=== PATIENT | female | born 1970 | race Caucasian/White ===

== ENCOUNTER 2018-03-26 14:27 | Emergency (ER) | payer BC, SELFPAY ==
[2018-03-26] MEDS ORDERED: MORPHINE 4 MG/ML SYR ONE (15:17)
[2018-03-26] MEDS ORDERED: ONDANSETRON 4 MG/2 ML VIAL ONE (15:17)
--- NOTE | 2018-03-26 15:29 | RAD REPORT ---
EXAM DESCRIPTION: CT - Stone Protocol - 03/26/2018 3:19 pm CLINICAL HISTORY: Abdominal pain. Right flank pain COMPARISON: 2015 TECHNIQUE: Computed axial tomography of the abdomen pelvis was obtained without oral or IV contrast. Lack of IV and oral contrast limits evaluation of solid organs, bowel, and vessels. Coronal reformat vahid images were obtained and reviewed. All CT scans are performed using dose optimization technique as appropriate and may include automated exposure control or mA/KV adjustment according to patient size. FINDINGS: A renal calculus is not seen. An ureteral calculus is not noted. A bladder calculus is not present. The liver, spleen, pancreas and adrenals appear grossly normal There is no evidence of diverticulitis. The appendix appears normal Hysterectomy has been performed. Tiny umbilical hernia. A small hiatal hernia with thickening of the wall of distal esophagus IMPRESSION: Negative for a genitourinary calculus Thickening of the wall of the distal esophagus may indicate inflammation
[2018-03-26 15:37] LABS: Absolute Lymphocytes (CBC) 3.4 K/uL (0.7-4.9); Absolute Monocytes 0.6 K/uL (0.1-1.3); Absolute Neutrophil 7.7 K/uL (1.8-8.0); Eosinophils % 2.9 % (0-4.4); Hematocrit 41.7 % (36.0-45.0); Lymphocytes % 27.8 % (15.3-44.8); MCV 94.1 fL (80-100); MPV 8.9 fL (7.6-11.3); Monocytes % 5.1 % (3.3-12.3); RBC Red Blood Cell Count 4.43 M/uL (3.86-4.86)
[2018-03-26 15:48] LABS: Albumin 3.7 g/dL (3.4-5.0); Bilirubin Direct 0.1 mg/dL (0-0.2); Bilirubin Total 0.4 mg/dL (0.2-1.0); Protein, Total 7.3 g/dL (6.4-8.2)
[2018-03-26 16:12] LABS: Urine Blood NEGATIVE (NEG); Urine Glucose NEGATIVE (NEG); Urine Protein NEGATIVE (NEG)
[2018-03-26 16:57] LABS: Creatine Phosphokinase 64 U/L (26-192); Troponin (Emerg Dept Use Only) < 0.02 ng/mL (0.0-0.045)
[2018-03-26] MEDS ORDERED: KETOROLAC 30 MG/ML INJ ONE (17:48)
--- NOTE | 2018-03-26 18:24 | EDPHYS ---
Physician Documentation [facility] Name: Emily Amaral Age: 47 yrs Sex: Female : 1970 Arrival Date: 03/26/2018 Time: 14:34 Bed 30 Private MD: None, None ED Physician Richmond Gray HPI: 03/26 15:01 This 47 yrs old Female presents to ER via Ambulatory with complaints of jmm Possible Kidney Stone. 15:01 The patient complains of pain in the right flank. The pain radiates to the suprapubic jmm area and right lower quadrant. Onset: The symptoms/episode began/occurred gradually, this morning. Associated signs and symptoms: Pertinent negatives: fever, vomiting. The patient has not experienced similar symptoms in the past. 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 - Social history:: Smoking status: . - Ebola Screening: : Patient denies travel to an Ebola-affected area in the 21 days before illness onset. ROS: 15:01 Constitutional: Negative for fever, chills, and weight loss, Cardiovascular: Negative jmm for chest pain, palpitations, and edema, Respiratory: Negative for shortness of breath, cough, wheezing, and pleuritic chest pain. 15:01 Abdomen/GI: Positive for abdominal pain. 15:01 Back: Positive for pain at rest. 15:01 All other systems are negative. Exam: 15:01 Constitutional: This is a well developed, well nourished patient who is awake, alert, jmm and in no acute distress. Head/Face: atraumatic. Eyes: EOMI, no conjunctival erythema appreciated ENT: Moist Mucus Membranes Neck: Trachea midline, Supple Chest/axilla: Normal chest wall appearance and motion. Cardiovascular: Regular 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 No edema appreciated Respiratory: Normal respirations, no respiratory distress appreciated Abdomen/GI: Non distended, soft Back: Normal ROM Skin: General appearance color normal MS/ Extremity: Moves all extremities, no obvious deformities appreciated, no edema noted to the lower extremities Neuro: Awake and alert, normal gait Psych: Behavior is normal, Mood is normal, Patient is cooperative and pleasant Vital Signs: 14:52 BP 133 / 79; Pulse 88; Resp 17; Temp 98.3; Pulse Ox 99% on R/A; Pain 8/10; tw2 16:29 BP 111 / 63; Pulse 63; Resp 18; Pulse Ox 100% on R/A; Pain 2/10; mg2 17:38 BP 129 / 82; Pulse 54; Resp 18; Pulse Ox 100% on R/A; Pain 0/10; mg2 18:44 BP 130 / 70; Pulse 60; Resp 18; Pulse Ox 100% on R/A; Pain 0/10; mg2 MDM: 14:58 Patient medically screened. [facility] 15:01 Data reviewed: vital signs, nurses notes. [facility] 18:21 Counseling: I had a detailed discussion with the patient and/or guardian regarding: the [facility] historical points, exam findings, and any diagnostic results supporting the discharge/admit diagnosis, lab results, radiology results, the need for outpatient follow up, to return to the emergency department if symptoms worsen or persist or if there are any questions or concerns that arise at home. Response to treatment: the patient's symptoms have mildly improved after treatment, and as a result, I will discharge patient. ED course: Patient's abdomen is soft. CT negative for acute findings. I do not currently suspect an acute intraabdominal process. Patient given follow up with general surgery for reevaluation and otherwise given strict return precautions. Patient understood and agrees with the plan of care. . 03/26 15:04 Order name: Basic Metabolic Panel [facility] 03/26 15:04 Order name: CBC with Diff [facility] 03/26 15:04 Order name: Creatinine for Radiology [facility] 03/26 15:04 Order name: Hepatic Function [facility] 03/26 15:04 Order name: Lipase [facility] 03/26 15:19 Order name: Urine Dipstick--Ancillary (enter results) [facility] 03/26 15:20 Order name: Urine --Ancillary (enter results) [facility] 03/26 15:43 Order name: Creatinine (Radiology Only); Complete Time: 15:56 [facility] 03/26 15:47 Order name: CBC with Automated Diff; Complete Time: 15:56 [facility] 03/26 15:48 Order name: Basic Metabolic Panel; Complete Time: 15:56 EDMS 03/26 15:48 Order name: Liver (Hepatic) Function; Complete Time: 15:56 [facility] 03/26 15:48 Order name: Lipase; Complete Time: 15:56 [facility] 03/26 16:13 Order name: Urine Dipstick-Ancillary; Complete Time: 16:33 [facility] 03/26 16:13 Order name: Urine --Ancillary; Complete Time: 16:33 [facility] 03/26 15:04 Order name: IV Saline Lock; Complete Time: 15:07 [facility] 03/26 15:04 Order name: Labs collected and sent; Complete Time: 15:07 [facility] 03/26 15:04 Order name: CT Stone Protocol [facility] 03/26 15:30 Order name: CT; Complete Time: 15:38 [facility] 03/26 16:33 Order name: Troponin (emerg Dept Use Only) [facility] 03/26 16:33 Order name: CPK [facility] 03/26 16:34 Order name: D-Dimer [facility] 03/26 16:56 Order name: D-Dimer; Complete Time: 17:05 [facility] 03/26 16:58 Order name: Creatine Phosphokinase; Complete Time: 17:05 [facility] 03/26 16:58 Order name: Troponin (Emerg Dept Use Only); Complete Time: 17:05 EDMS Administered Medications: 15:18 Drug: Zofran 4 mg Route: IVP; Site: left antecubital; mg2 15:19 Drug: morphine 4 mg Route: IVP; Site: left antecubital; mg2 17:42 Drug: Ketorolac 30 mg Route: IVP; Site: left antecubital; mg2 Disposition: 18:57 Co-signature as Attending Physician, Richmond Gray MD. rn Disposition: 03/26/18 18:23 Discharged to Home. Impression: Unspecified abdominal pain. - Condition is Stable. - Discharge Instructions: Abdominal Pain, Adult. - Prescriptions for Zofran ODT 4 mg Oral tablet,disintegrating - place 1 tablet by TRANSLINGUAL route every 4-6 hours; 20 tablet. Bentyl 20 mg Oral Tablet - take 1 tablet by ORAL route every 6 hours As needed; 20 tablet. - Medication Reconciliation Form, Thank You Letter, Antibiotic Education, Prescription Opioid Use, Work release form form. - Follow up: Rory, Phong, MD; When: 2 - 3 days; Reason: Recheck today's complaints, Continuance of care, Re-evaluation by your physician. Signatures: Dispatcher [employer] EDMS Polo Samuels PA PA jmm Nieto, Roman, MD MD rn Wise, Tara, RN RN tw2 Marco A Garrett RN RN mg2 Corrections: (The following items were deleted from the chart) 18:45 18:23 03/26/2018 18:23 Discharged to Home. Impression: Unspecified abdominal pain. mg2 Condition is Stable. Forms are Medication Reconciliation Form, Thank You Letter, Antibiotic Education, Prescription Opioid Use. Follow up: Dr. Phong Valadez; When: 2 - 3 days; Reason: Recheck today's complaints, Continuance of care, Re-evaluation by your physician. veronica
--- NOTE | 2018-03-26 18:24 | ER ---
Nurse's Notes [facility] Name: Emily Amaral Age: 47 yrs Sex: Female : 1970 Arrival Date: 03/26/2018 Time: 14:34 Bed 30 Private MD: None, None Diagnosis: Unspecified abdominal pain Presentation: 03/26 14:47 Presenting complaint: Patient states: i started having right low back pain yesterday, tw2 like a dull ache, now it hurts and radiates down into my groin, it feels like i am in labor and i dont have the parts. Transition of care: patient was not received from another setting of care. Onset of symptoms was March 26, 2018. Risk Assessment: Do you want to hurt yourself or someone else? Patient reports no desire to harm self or others. Initial Sepsis Screen: Does the patient meet any 2 criteria? No. Patient's initial sepsis screen is negative. Does the patient have a suspected source of infection? No. Patient's initial sepsis screen is negative. Care prior to arrival: None. 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 - Social history:: Smoking status: . - Ebola Screening: : Patient denies travel to an Ebola-affected area in the 21 days before illness onset. Screenin:28 Abuse screen: Denies threats or abuse. Denies injuries from another. Nutritional mg2 screening: No deficits noted. Tuberculosis screening: No symptoms or risk factors identified. Fall Risk IV access (20 points). Assessment: 16:27 General: Appears in no apparent distress. comfortable, Behavior is calm, cooperative. mg2 Pain: Complains of pain in right lower quadrant and suprapubic area and right flank Pain does not radiate. Pain currently is 4 out of 10 on a pain scale. Quality of pain is described as aching, Pain began gradually, today morning Is intermittent, Alleviated by rest. Neuro: Level of Consciousness is awake, alert, obeys commands, Oriented to person, place, time, situation. Cardiovascular: Capillary refill < 3 seconds Patient's skin is warm and dry. Respiratory: Airway is patent Respiratory effort is even, unlabored, Respiratory pattern is regular, symmetrical. GI: Bowel sounds present X 4 quads. Abd is soft and non tender. : Urine is clear, Reports pain flank(s). EENT: No signs and/or symptoms were reported regarding the EENT system. Derm: Skin is intact, is healthy with good turgor, Skin is pink, warm \T\ dry. normal. Musculoskeletal: No signs and/or symptoms reported regarding the musculoskeletal system. Vital Signs: 14:52 BP 133 / 79; Pulse 88; Resp 17; Temp 98.3; Pulse Ox 99% on R/A; Pain 8/10; tw2 16:29 BP 111 / 63; Pulse 63; Resp 18; Pulse Ox 100% on R/A; Pain 2/10; mg2 17:38 BP 129 / 82; Pulse 54; Resp 18; Pulse Ox 100% on R/A; Pain 0/10; mg2 18:44 BP 130 / 70; Pulse 60; Resp 18; Pulse Ox 100% on R/A; Pain 0/10; mg2 ED Course: 14:34 Patient arrived in ED. sb2 14:34 None, None is Private Physician. sb2 14:48 Triage completed. tw2 14:48 Arm band placed on. tw2 14:55 Marco A Garrett, ANNY is Primary Nurse. mg2 14:55 Polo Sameuls PA is PHCP. [facility] 14:55 Richmond Gray MD is Attending Physician. jmm 15:[address] mw3 15:19 CT completed. Patient tolerated procedure well. Patient moved back from CT. mw3 16:29 No provider procedures requiring assistance completed. Inserted saline lock: 20 gauge mg2 in left antecubital area, using aseptic technique. Blood collected. 16:31 Patient has correct armband on for positive identification. Pulse ox on. NIBP on. mg2 18:23 Phong Valadez MD is Referral Physician. jmm 18:44 IV discontinued, intact, bleeding controlled, No redness/swelling at site. Pressure mg2 dressing applied. Administered Medications: 15:18 Drug: Zofran 4 mg Route: IVP; Site: left antecubital; mg2 15:19 Drug: morphine 4 mg Route: IVP; Site: left antecubital; mg2 17:42 Drug: Ketorolac 30 mg Route: IVP; Site: left antecubital; mg2 Outcome: 18:23 Discharge ordered by . veronica 18:44 Discharged to home ambulatory. mg2 18:44 Condition: stable 18:44 Discharge instructions given to patient, Instructed on discharge instructions, follow up and referral plans. medication usage, Demonstrated understanding of instructions, follow-up care, medications, Prescriptions given X 2. 18:45 Patient left the ED. mg2 Signatures: Polo Samuels PA PA jmm Wise, Tara RN RN tw2 Nahomi Olivia sb2 Marco A Garrett RN RN mg2 Elizabeth Walker mw3
--- NOTE | 2018-03-26 22:19 | EKG ---
Test Date: 2018-03-26 Test Time: 15:59:20 Car Dealer: DHEERAJ MEASUREMENT RESULTS: Intervals: Rate: 55 MA: 178 QRSD: 82 QT: 414 QTc: 396 Dawn: P: 41 MA: 178 QRS: 39 T: 0 INTERPRETIVE STATEMENTS: Sinus bradycardia Otherwise normal ECG Compared to ECG 02/28/2014 19:05:33 Sinus rhythm no longer present Electronically Signed On 03-26-18 22:18:33 OPERATIONS FORESTER by Cesar Blackmon
== END 2018-03-26 18:45 | disposition home or self-care (01) ==
LOC: ER 14:27
DX: R10.9 Unspecified abdominal pain (principal); Z88.5 Allergy status to narcotic agent; Z85.41 Personal history of malignant neoplasm of cervix uteri
CPT/HCPCS: 36415; 74176; 76377; 80048; 80076; 81003; 81025; 82550; 83690; 84484; 85025; 85379; 93005; J2405

== ENCOUNTER 2018-09-30 19:38 | Emergency (ER) | payer BC, SELFPAY ==
[2018-09-30] MEDS ORDERED: MAGNE/ALUM HYDROXD 30 ML UCUP ONE (20:17)
[2018-09-30] MEDS ORDERED: LIDOCAINE VISCOUS 2% SOLN 15 ML UDC ONE (20:18)
[2018-09-30] MEDS ORDERED: MORPHINE 4 MG/ML SYR ONE (20:18)
[2018-09-30] MEDS ORDERED: ONDANSETRON 4 MG/2 ML VIAL ONE (20:18)
[2018-09-30] MEDS ORDERED: NA CHLORIDE 0.9% 500 ML ONE (20:18)
[2018-09-30 20:32] LABS: Absolute Lymphocytes (CBC) 2.4 K/uL (0.7-4.9); Absolute Monocytes 0.9 K/uL (0.1-1.3); Absolute Neutrophil 8.1 K/uL (1.8-8.0); Basophils % 0.7 % (0-1.3); Eosinophils % 1.5 % (0-4.4); Hematocrit 39.9 % (36.0-45.0); Lymphocytes % 20.9 % (15.3-44.8); MPV 9.2 fL (7.6-11.3); Monocytes % 7.5 % (3.3-12.3); RBC Red Blood Cell Count 4.28 M/uL (3.86-4.86)
[2018-09-30 20:46] LABS: ALT/SGPT 17 U/L (12-78); AST/SGOT 11 U/L (15-37); Albumin 3.4 g/dL (3.4-5.0); Alkaline Phosphatase 137 U/L (45-117); BUN Blood Urea Nitrogen 15 mg/dL (7-18); Bicarbonate 27 mmol/L (21-32); Bilirubin Direct < 0.1 mg/dL (0-0.2); Bilirubin Total 0.3 mg/dL (0.2-1.0); Glucose Level 106 mg/dL (74-106); Lipase 240 U/L (73-393); Potassium 3.7 mmol/L (3.5-5.1); Sodium Level 142 mmol/L (136-145)
--- NOTE | 2018-09-30 22:17 | ER ---
Nurse's Notes [facility] Name: Emily Amaral Age: 48 yrs Sex: Female : 1970 Arrival Date: 09/30/2018 Time: 19:43 Bed 24 Private MD: Diagnosis: Unspecified abdominal pain;Ileitis Presentation: 09/30 19:52 Presenting complaint: Patient states: I have had stomach pain since this morning. I ed1 have a history of pancreatitis. Transition of care: patient was not received from another setting of care. Onset of symptoms was September 30, 2018. Risk Assessment: Do you want to hurt yourself or someone else? Patient reports no desire to harm self or others. Initial Sepsis Screen: Does the patient meet any 2 criteria? No. Patient's initial sepsis screen is negative. Does the patient have a suspected source of infection? No. Patient's initial sepsis screen is negative. Care prior to arrival: None. 19:52 Method Of Arrival: Ambulatory ed1 19:52 Acuity: PRIYA 3 ed1 Triage Assessment: 19:54 General: Appears uncomfortable, Behavior is calm, cooperative. Pain: Complains of pain ed1 in abdomen Pain currently is 4 out of 10 on a pain scale. at worst was 8 out of 10 on a pain scale. GI: Reports diarrhea, nausea. 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 - Social history:: Smoking status: Patient/guardian denies using tobacco. - Family history:: not pertinent. - Ebola Screening: : Patient negative for fever greater than or equal to 101.5 degrees Fahrenheit, and additional compatible Ebola Virus Disease symptoms Patient denies exposure to infectious person Patient denies travel to an Ebola-affected area in the 21 days before illness onset No symptoms or risks identified at this time. - Hospitalizations: : No recent hospitalization is reported. Screenin:00 Abuse screen: Denies threats or abuse. Denies injuries from another. Nutritional ca1 screening: No deficits noted. Tuberculosis screening: No symptoms or risk factors identified. Fall Risk IV access (20 points). Assessment: 20:00 General: Appears in no apparent distress. comfortable, Behavior is calm, cooperative, ca1 appropriate for age. Pain: Complains of pain in right upper quadrant Pain does not radiate. Pain currently is 8 out of 10 on a pain scale. Quality of pain is described as dull, Pain began this morning Is intermittent. Neuro: Level of Consciousness is awake, alert, obeys commands, Oriented to person, place, time, situation. Cardiovascular: Heart tones S1 S2 present Capillary refill < 3 seconds Patient's skin is warm and dry. Respiratory: Airway is patent Respiratory effort is even, unlabored, Respiratory pattern is regular, symmetrical, Breath sounds are clear bilaterally. GI: Abdomen is round non-distended, Bowel sounds present X 4 quads. Abd is soft X 4 quads Abdomen is tender to palpation in right upper quadrant and left upper quadrant Reports diarrhea, nausea, since this morning. : No deficits noted. No signs and/or symptoms were reported regarding the genitourinary system. EENT: No deficits noted. No signs and/or symptoms were reported regarding the EENT system. Derm: Skin is intact, is healthy with good turgor, Skin is pink, warm \T\ dry. Musculoskeletal: Circulation, motion, and sensation intact. Capillary refill < 3 seconds, Range of motion: intact in all extremities. 21:00 Reassessment: Patient appears in no apparent distress at this time. Patient and/or ca1 family updated on plan of care and expected duration. Pain level reassessed. Patient is alert, oriented x 3, equal unlabored respirations, skin warm/dry/pink. 21:26 Reassessment: Pt back from CT scan. ca1 21:41 Reassessment: Patient appears in no apparent distress at this time. Patient is alert, ca1 oriented x 3, equal unlabored respirations, skin warm/dry/pink. Patient states feeling better. 22:31 Reassessment: Patient appears in no apparent distress at this time. Patient is alert, ca1 oriented x 3, equal unlabored respirations, skin warm/dry/pink. Vital Signs: 19:54 Pulse 81; Resp 17; Temp 98.4; Pulse Ox 98% on R/A; Weight 89.81 kg; Height 5 ft. 5 in. ed1 (165.10 cm); Pain 4/10; 20:23 BP 129 / 78; Pulse 75; Resp 17 S; Pulse Ox 99% on R/A; ca1 21:26 BP 130 / 79; Pulse 72; Resp 18 S; Temp 98.8(O); Pulse Ox 100% on R/A; ca1 22:31 BP 123 / 75; Pulse 69; Resp 17 S; Temp 98.7(O); Pulse Ox 99% on R/A; ca1 19:54 Body Mass Index 32.95 (89.81 kg, 165.10 cm) ed1 ED Course: 19:43 Patient arrived in ED. es 19:44 Richmond Gray MD is Attending Physician. rn 19:46 Billie Hogan RN is Primary Nurse. ca1 19:52 Radiology exam delayed due to lab results not completed at this time. test vm2 not completed at this time. IV insertion attempt and/or patient not having appropriate IV at this time. 19:53 Triage completed. ed1 19:54 Arm band placed on. ed1 20:00 Patient has correct armband on for positive identification. Placed in gown. Bed in low ca1 position. Call light in reach. Side rails up X 1. Pulse ox on. NIBP on. Warm blanket given. 20:00 No provider procedures requiring assistance completed. Inserted saline lock: 20 gauge ca1 in left antecubital area, using aseptic technique. Blood collected. 20:19 Radiology exam delayed due to lab results not completed at this time. (BUN/Creatinine). nj 20:39 Radiology exam delayed due to lab results not completed at this time. (BUN/Creatinine). vm2 20:41 Radiology exam delayed due to lab results not completed at this time. (BUN/Creatinine). nj 21:[address] via wheelchair. nj 21:17 CT completed. Patient tolerated procedure well. Patient moved back from CT. vm2 21:30 Abdomen In Process Unspecified. EDMS 22:32 IV discontinued, intact, bleeding controlled, No redness/swelling at site. Pressure ca1 dressing applied. Administered Medications: 20:01 Drug: NS 0.9% 500 ml Route: IV; Rate: bolus; Site: left antecubital; ca1 21:00 Follow up: Response: No adverse reaction; IV Status: Completed infusion ca1 20:02 Drug: Zofran 4 mg Route: IVP; Site: left antecubital; ca1 21:40 Follow up: Response: No adverse reaction; Nausea is decreased ca1 20:05 Drug: morphine 4 mg Route: IVP; Site: left antecubital; ca1 21:40 Follow up: Response: No adverse reaction; Pain is decreased ca1 20:18 Drug: GI Cocktail without - (Maalox Suspension 30 ml, Lidocaine Liquid 2 % 15 ca1 ml) Route: PO; 21:40 Follow up: Response: No adverse reaction; Pain is decreased ca1 22:24 Drug: Cipro 500 mg Route: PO; ca1 22:24 Follow up: Response: Medication administered at discharge. ca1 22:24 Drug: Flagyl 500 mg Route: PO; ca1 22:25 Follow up: Response: Medication administered at discharge. ca1 22:24 Drug: [place] 10 mg-325 mg 1 tabs Route: PO; ca1 22:25 Follow up: Response: Medication administered at discharge. ca1 Outcome: 22:16 Discharge ordered by . rn 22:32 Discharged to home ambulatory, with family. ca1 22:32 Condition: stable 22:32 Discharge instructions given to patient, Instructed on discharge instructions, follow up and referral plans. medication usage, Demonstrated understanding of instructions, follow-up care, medications, Prescriptions given X 4. 22:33 Patient left the ED. ca1 Signatures: Dispatcher [employer] Lucy Ahumada Roman, MD MD rn Riggs, Erika, RN RN ed1 Imtiaz Arce [facility] Billie Hogan RN RN ca1
--- NOTE | 2018-09-30 22:17 | EDPHYS ---
Physician Documentation [facility] Name: Emily Amaral Age: 48 yrs Sex: Female : 1970 Arrival Date: 09/30/2018 Time: 19:43 Bed 24 Private MD: DARIANA Physician Richmond Gray HPI: 09/30 19:50 This 48 yrs old Female presents to ER via Unassigned with complaints of rn Abdominal Pain. 19:50 The patient presents with abdominal pain in the periumbilical area. Onset: The rn symptoms/episode began/occurred this morning. The symptoms radiate to back. Associated signs and symptoms: Pertinent positives: diarrhea, nausea, Pertinent negatives: blood in stools, chest pain, constipation, dysuria, fever, shortness of breath, vomiting blood. The symptoms are described as achy, crampy, intermittent. Modifying factors: The symptoms are alleviated by nothing, the symptoms are aggravated by touching the area. Severity of pain: At its worst the pain was moderate in the emergency department the pain is unchanged. The patient has experienced a previous episode. Reports this morning began with mid abdominal pain, radiates to both sides and back, assoc with nausea, indigestion, and diarrhea. Has had pancreatitis once in past, doesn't have gallbladder or ovaries. No lower abd pain. NO blood in stool. . 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 - Social history:: Smoking status: Patient/guardian denies using tobacco. - Family history:: not pertinent. - Ebola Screening: : Patient negative for fever greater than or equal to 101.5 degrees Fahrenheit, and additional compatible Ebola Virus Disease symptoms Patient denies exposure to infectious person Patient denies travel to an Ebola-affected area in the 21 days before illness onset No symptoms or risks identified at this time. - Hospitalizations: : No recent hospitalization is reported. ROS: 19:50 Constitutional: Negative for fever, chills, and weight loss, Eyes: Negative for injury, rn pain, redness, and discharge, Cardiovascular: Negative for chest pain, palpitations, and edema, Respiratory: Negative for shortness of breath, cough, wheezing, and pleuritic chest pain, Abdomen/GI: + abd pain and nausea/diarrhea, negative for blood in stool Back: Negative for injury : Negative for injury, bleeding, discharge, and swelling, MS/Extremity: Negative for injury and deformity, Skin: Negative for injury, rash, and discoloration, Neuro: Negative for headache, weakness, numbness, tingling, and seizure. Exam: 19:50 Constitutional: This is a well developed, well nourished patient who is awake, alert, rn and in no acute distress. Ambulatory to room without difficulty or assistance. Head/Face: Normocephalic, atraumatic. Eyes: Pupils equal round and reactive to light, extra-ocular motions intact. Lids and lashes normal. Conjunctiva and sclera are non-icteric and not injected. Cornea within normal limits. Periorbital areas with no swelling, redness, or edema. Respiratory: No increased work of breathing, no retractions or nasal flaring. Abdomen/GI: soft, mild epigastric and periumbilical tenderness, no rebound or masses Skin: Warm, dry MS/ Extremity: Pulses equal, no cyanosis. Neuro: Awake and alert, GCS 15, oriented to person, place, time, and situation. Cranial nerves II-XII grossly intact. Motor strength 5/5 in all extremities. Sensory grossly intact. Cerebellar exam normal. Normal gait. Vital Signs: 19:54 Pulse 81; Resp 17; Temp 98.4; Pulse Ox 98% on R/A; Weight 89.81 kg; Height 5 ft. 5 in. ed1 (165.10 cm); Pain 4/10; 20:23 BP 129 / 78; Pulse 75; Resp 17 S; Pulse Ox 99% on R/A; ca1 21:26 BP 130 / 79; Pulse 72; Resp 18 S; Temp 98.8(O); Pulse Ox 100% on R/A; ca1 22:31 BP 123 / 75; Pulse 69; Resp 17 S; Temp 98.7(O); Pulse Ox 99% on R/A; ca1 19:54 Body Mass Index 32.95 (89.81 kg, 165.10 cm) ed1 MDM: 19:44 Patient medically screened. rn 21:14 ED course: Patient on way to cat scan states has had ct with contrast multiple times, rn never had reaction in past other than last time, when IV contrast caused so and chest pain. Decision made to do without IV contrast. . 22:14 Differential diagnosis: appendicitis, diverticulitis, gastritis, gastroesophageal rn reflux disease, non-specific abd pain, pancreatitis, Peptic Ulcer Disease, urinary tract infection. Data reviewed: vital signs, nurses notes, lab test result(s), radiologic studies, CT scan, and as a result, I will discharge patient. Counseling: I had a detailed discussion with the patient and/or guardian regarding: the historical points, exam findings, and any diagnostic results supporting the discharge/admit diagnosis, lab results, radiology results, the need for outpatient follow up, to return to the emergency department if symptoms worsen or persist or if there are any questions or concerns that arise at home. Response to treatment: the patient's symptoms have markedly improved after treatment, and as a result, I will discharge patient. Special discussion: Based on the patient's Hx, exam, and Dx evaluation, there is no indication for emergent surgery or inpatient Tx. It is understood by the patient/guardian that if the Sx's persist or worsen they need to return immediately for re-evaluation. I discussed with the patient/guardian in detail that at this point there is no indication for admission to the hospital. It is understood, however, that if the symptoms persist or worsen the patient needs to return immediately for re-evaluation. ED course: + terminal ilietis, feels much better, will dc home with abx given focality and near colon, and prn nausea and pain medication. . 09/30 19:50 Order name: Basic Metabolic Panel; Complete Time: 21: rn 09/30 19:50 Order name: CBC with Diff; Complete Time: 21: rn 09/30 19:50 Order name: Hepatic Function; Complete Time: 21: rn 09/30 19:50 Order name: Lipase; Complete Time: 21: rn 09/30 21:18 Order name: Abdomen EDMS 09/30 19:50 Order name: IV Saline Lock; Complete Time: 20:15 rn 09/30 19:50 Order name: Labs collected and sent; Complete Time: 20:15 rn Administered Medications: 20:01 Drug: NS 0.9% 500 ml Route: IV; Rate: bolus; Site: left antecubital; ca1 21:00 Follow up: Response: No adverse reaction; IV Status: Completed infusion ca1 20:02 Drug: Zofran 4 mg Route: IVP; Site: left antecubital; ca1 21:40 Follow up: Response: No adverse reaction; Nausea is decreased ca1 20:05 Drug: morphine 4 mg Route: IVP; Site: left antecubital; ca1 21:40 Follow up: Response: No adverse reaction; Pain is decreased ca1 20:18 Drug: GI Cocktail without - (Maalox Suspension 30 ml, Lidocaine Liquid 2 % 15 ca1 ml) Route: PO; 21:40 Follow up: Response: No adverse reaction; Pain is decreased ca1 22:24 Drug: Cipro 500 mg Route: PO; ca1 22:24 Follow up: Response: Medication administered at discharge. ca1 22:24 Drug: Flagyl 500 mg Route: PO; ca1 22:25 Follow up: Response: Medication administered at discharge. ca1 22:24 Drug: [place] 10 mg-325 mg 1 tabs Route: PO; ca1 22:25 Follow up: Response: Medication administered at discharge. ca1 Disposition: 09/30/18 22:16 Discharged to Home. Impression: Unspecified abdominal pain, Ileitis. - Condition is Stable. - Discharge Instructions: Abdominal Pain, Adult, Viral Gastroenteritis, Adult. - Prescriptions for Zofran ODT 4 mg Oral tablet,disintegrating - place 1 tablet by TRANSLINGUAL route every 8 hours As needed; 20 tablet. Cipro 500 mg Oral Tablet - take 1 tablet by ORAL route every 12 hours for 10 days; 20 tablet. Flagyl 500 mg Oral Tablet - take 1 tablet by ORAL route every 8 hours for 10 days; 30 tablet. Tylenol- Codeine #3 300-30 mg Oral Tablet - take 1 tablet by ORAL route every 6 hours As needed; 20 tablet. - Medication Reconciliation Form, Thank You Letter, Antibiotic Education, Prescription Opioid Use form. - Follow up: Private Physician; When: As needed; Reason: Recheck today's complaints, Re-evaluation by your physician. - Problem is new. - Symptoms have improved. Signatures: Dispatcher [employer] EDMS Richmond Gray MD MD rn Riggs, Erika, RN RN ed1 Billie Hogan RN RN ca1 Corrections: (The following items were deleted from the chart) 21:19 19:51 Abdomen Pelvis W Con+CT.RAD.BRZ ordered. [facility] EDMS 22:33 22:16 09/30/2018 22:16 Discharged to Home. Impression: Unspecified abdominal pain; ca1 Ileitis. Condition is Stable. Forms are Medication Reconciliation Form, Thank You Letter, Antibiotic Education, Prescription Opioid Use. Follow up: Private Physician; When: As needed; Reason: Recheck today's complaints, Re-evaluation by your physician. Problem is new. Symptoms have improved. rn
[2018-09-30] MEDS ORDERED: metroNIDAZOLE 500 MG TABLET ONE (22:34)
[2018-09-30] MEDS ORDERED: HYDROCODONE/APAP 10/325 TAB ONE (22:35)
[2018-09-30] MEDS ORDERED: CIPROFLOXACIN HCL 500 MG TAB ONE (22:35)
--- NOTE | 2018-10-01 11:05 | RAD REPORT ---
EXAM DESCRIPTION: CT - Abdomen Pelvis Wo Contrast - 09/30/2018 11:08 pm COMPARISON: None. TECHNIQUE: CT scan of the abdomen and pelvis was performed without IV contrast. This exam was perfor med according to our departmental dose-optimization program, which includes automated exposure contro l, adjustment of the mA and/or kV according to patient size and/or use of iterative reconstruction te chnique. FINDINGS: The lung bases are clear. No pleural or pericardial effusions. There is no hiatal hernia. There has been a prior cholecystectomy. The liver, spleen, pancreas, adrenal glands, and kidneys are unremarkable without hydronephrosis or urinary stones identified. There has been a prior hysterectomy . There is a 4 cm left ovarian cyst. The appendix is unremarkable. No evidence of acute diverticulitis. There is diffuse wall thickening o f the terminal ileum consistent with terminal ileitis. No intraperitoneal free fluid or free air is s een. The aorta is normal caliber. No acute bony findings are seen. No pathologic body wall hernia is seen. IMPRESSION: 1. Findings consistent with terminal ileitis, which may be infectious or inflammatory in etiology. 2. 4.0 cm probably benign left ovarian cyst. Recommend follow-up pelvic US in 6-12 weeks. Reference: J Am Bradley Radiol 2013;[id number] Electronically signed by: Johnny Chisholm MD 09/30/2018 9:43 PM CDT Due to temporary technical issues with the PACS/Fluency reporting system, reports are being signed by the in house radiologist as a courtesy to ensure prompt reporting. The interpreting radiologist is f ully responsible for the content of the report.
== END 2018-09-30 22:33 | disposition home or self-care (01) ==
LOC: ER 19:38
DX: K52.9 Noninfective gastroenteritis and colitis, unspecified (principal); Z85.41 Personal history of malignant neoplasm of cervix uteri
CPT/HCPCS: 36415; 74176; 80048; 80076; 83690; 85025; 96361; 96374; 96375; 99284; J2405

== ENCOUNTER 2018-10-10 14:38 | Emergency (ER) | payer SELFPAY ==
[2018-10-10] MEDS ORDERED: ONDANSETRON 4 MG/2 ML VIAL ONE (15:38)
[2018-10-10] MEDS ORDERED: NA CHLORIDE 0.9% 1,000 ML ONE (15:38)
[2018-10-10] MEDS ORDERED: MORPHINE 4 MG/ML SYR ONE (15:38)
[2018-10-10 15:45] LABS: Absolute Lymphocytes (CBC) 2.6 K/uL (0.7-4.9); Basophils % 1.1 % (0-1.3); Eosinophils % 2.5 % (0-4.4); Hematocrit 39.6 % (36.0-45.0); Lymphocytes % 26.5 % (15.3-44.8); MPV 8.8 fL (7.6-11.3); Monocytes % 6.3 % (3.3-12.3); RBC Red Blood Cell Count 4.22 M/uL (3.86-4.86)
[2018-10-10 16:05] LABS: Albumin 3.4 g/dL (3.4-5.0); Bilirubin Direct 0.1 mg/dL (0-0.2); Bilirubin Total 0.4 mg/dL (0.2-1.0); Potassium 3.6 mmol/L (3.5-5.1); Protein, Total 6.6 g/dL (6.4-8.2)
--- NOTE | 2018-10-10 17:00 | RAD REPORT ---
EXAM DESCRIPTION: CT - Abdomen Pelvis Wo Contrast - 10/10/2018 4:41 pm CLINICAL HISTORY: Nausea, abdominal pain COMPARISON: CT September 30 TECHNIQUE: Axial [address] imaging of the abdomen and pelvis was performed without IV contrast. No IV contrast was given because of allergy, abnormal renal function, patient refusal or physician re quest. No oral contrast administered. All CT scans are performed using dose optimization technique as appropriate and may include automated exposure control or mA/KV adjustment according to patient size. FINDINGS: No suspicious findings in the lung bases. The liver, spleen and pancreas show no suspicious findings on non-contrast imaging. Cholecystectomy c lips are present. No biliary tree dilatation. No hydronephrosis or suspicious renal mass. No significant adrenal finding. Isodense renal masses an d pyelonephritis cannot be excluded in the absence of IV contrast. The urinary bladder is without sig nificant finding. No gastric dilatation or gastric wall thickening. Is small to moderate hiatal hernia is again noted. No acute small bowel finding. The terminal ileitis finding seen on September 30 have resolved or nearly fu lly resolved. Moderate stool volume is present in the colon. No acute colon process identifiable. No appendicitis findings. No free air, free fluid or pneumatosis. In the left lower quadrant a 6.3 centimeter rounded low-density mass is identified. Uterus is absent. A separate or discrete left ovary is not identified. This is probably a left ovarian cystic mass. Th e mass was 4 cm on the September 30 examination. Calcification is seen along the lateral margin of this ma ss. No fat component. There is some question of communication or connection to the left gonadal vein. No suspicious bony findings. IMPRESSION: No bowel obstruction, free air or surgically emergent finding. The terminal ileitis seen September 30 has resolved or nearly fully resolved. A left lower quadrant low-density mass has enlarged from 4 cm on September 30 to the current 6.3 cm. This may be an enlarging left ovarian or paraovarian mass. There is questionable communication with t he left gonadal vein. Full assessment is limited is the absence of IV contrast.
--- NOTE | 2018-10-10 19:02 | RAD REPORT ---
EXAM DESCRIPTION: US - Pelvis Complete - 10/10/2018 6:25 pm CLINICAL HISTORY: Abnormal CT, left pelvic mass COMPARISON: CT study October 10, 2018, CT study September 30, 2018 TECHNIQUE: Transabdominal pelvic sonography was performed. FINDINGS: Uterus is not identified match the surgical history. In the lateral left adnexa a 6 centim eter cystic mass is present. Posterior acoustic enhancement seen. At least 1 thickened septation is i dentified and there is questionable calcification along the lateral margin. This is the correlate to the CT finding. Patient gives a history of bilateral oophorectomy. The cystic mass may be ovarian in origin and remnant ovarian tissue is present. Paraovarian cyst is possible as well. The mass has sign ificantly increased in size from September 30. Doppler evaluation shows no abnormal blood flow within the substance of this mass. No hemorrhagic material within the lumen. IMPRESSION: Approximately 6 centimeter left adnexal cystic mass present and the correlate to the CT finding. Doppler evaluation shows no abnormal blood flow within the substance of this mass. Patient indicates bilateral oophorectomy history. Cystic mass may be ovarian in origin if remnant ova ayad tissue is present. Paraovarian cyst or cystadenoma would still be possible. 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
--- NOTE | 2018-10-10 19:13 | EDPHYS ---
Physician Documentation [facility] Name: Emily Amaral Age: 48 yrs Sex: Female : 1970 Arrival Date: 10/10/2018 Time: 14:41 Bed 26 Private MD: ED Physician Richmond Gray HPI: 10/10 15:21 This 48 yrs old Female presents to ER via Ambulatory with complaints of pm1 Abdominal Pain, Nausea, Dizziness. 15:21 The patient presents with abdominal pain in the upper abdomen. Onset: The pm1 symptoms/episode began/occurred 10 day(s) ago. The symptoms do not radiate. Associated signs and symptoms: Pertinent positives: nausea, dizziness, Pertinent negatives: chest pain, constipation, diarrhea, dysuria, fever, shortness of breath, vomiting. The symptoms are described as achy, constant, crampy. Modifying factors: The symptoms are alleviated by nothing, the symptoms are aggravated by nothing. Severity of pain: in the emergency department the pain is unchanged. The patient has been recently seen at the [facility] Emergency Department, for similar complaints labs were performed, CT scan was performed, was given a prescription for antibiotics, was given a prescription for pain medications. Patient reports no improvement in abdominal pain post completion of antibiotics. Patient has not followed up with GI. 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 - Social history:: Smoking status: Patient/guardian denies using tobacco. - Ebola Screening: : No symptoms or risks identified at this time. ROS: 15:21 Constitutional: Negative for fever, chills, and weight loss, Eyes: Negative for injury, pm1 pain, redness, and discharge, ENT: Negative for injury, pain, and discharge, Neck: Negative for injury, pain, and swelling, Cardiovascular: Negative for chest pain, palpitations, and edema, Respiratory: Negative for shortness of breath, cough, wheezing, and pleuritic chest pain, Back: Negative for injury and pain, : Negative for injury, bleeding, discharge, and swelling. 15:21 MS/Extremity: Negative for injury and deformity, Skin: Negative for injury, rash, and discoloration. 15:21 Abdomen/GI: Positive for abdominal pain, nausea, Negative for vomiting, diarrhea, constipation. 15:21 Neuro: Positive for dizziness, Negative for headache, numbness, tingling. Exam: 15:21 Constitutional: This is a well developed, well nourished patient who is awake, alert, pm1 and in no acute distress. Head/Face: Normocephalic, atraumatic. Eyes: Pupils equal round and reactive to light, extra-ocular motions intact. Lids and lashes normal. Conjunctiva and sclera are non-icteric and not injected. Cornea within normal limits. Periorbital areas with no swelling, redness, or edema. ENT: Nares patent. No nasal discharge, no septal abnormalities noted. Tympanic membranes are normal and external auditory canals are clear. Oropharynx with no redness, swelling, or masses, exudates, or evidence of obstruction, uvula midline. Mucous membranes moist. Neck: Trachea midline, no thyromegaly or masses palpated, and no cervical lymphadenopathy. Supple, full range of motion without nuchal rigidity, or vertebral point tenderness. No Meningismus. Chest/axilla: Normal chest wall appearance and motion. Nontender with no deformity. No lesions are appreciated. Cardiovascular: Regular rate and rhythm with a normal S1 and S2. No gallops, murmurs, or rubs. Normal PMI, no JVD. No pulse deficits. Respiratory: Lungs have equal breath sounds bilaterally, clear to auscultation and percussion. No rales, rhonchi or wheezes noted. No increased work of breathing, no retractions or nasal flaring. 15:21 Back: No spinal tenderness. No costovertebral tenderness. Full range of motion. Skin: Warm, dry with normal turgor. Normal color with no rashes, no lesions, and no evidence of cellulitis. MS/ Extremity: Pulses equal, no cyanosis. Neurovascular intact. Full, normal range of motion. 15:21 Abdomen/GI: Inspection: abdomen appears normal, Bowel sounds: normal, Palpation: abdomen is soft and non-tender, mass, is not appreciated, rebound tenderness, is not appreciated. 15:21 Neuro: Orientation: is normal, Motor: is normal, moves all fours. Vital Signs: 14:46 BP 127 / 76; Pulse 72; Resp 18; Temp 98.1(O); Pulse Ox 98% on R/A; Weight 90.72 kg (R); lp1 Height 5 ft. 5 in. (165.10 cm); Pain 8/10; 15:08 BP 112 / 67 Supine; Pulse 68; Resp 18; Pulse Ox 95% on R/A; mh5 15:10 BP 117 / 77 Sitting; Pulse 81; Resp 17; Pulse Ox 95% on R/A; mh5 15:12 BP 118 / 78 Standing; Pulse 73; Resp 20; Pulse Ox 94% on R/A; mh5 15:50 BP 125 / 78; Pulse 67; Resp 19 S; Pulse Ox 100% on R/A; ca1 16:45 BP 138 / 86; Pulse 70; Resp 16; Temp 98.(O); Pulse Ox 97% on R/A; ca1 17:38 BP 133 / 76; Pulse 93; Resp 17; Pulse Ox 100% ; ca1 18:19 BP 138 / 78; Pulse 62; Resp 17 S; Temp 98(O); Pulse Ox 100% on R/A; ca1 19:32 BP 113 / 59; Pulse 69; Resp 16 S; Temp 98(O); Pulse Ox 100% on R/A; ca1 14:46 Body Mass Index 33.28 (90.72 kg, 165.10 cm) lp1 MDM: 15:03 Patient medically screened. 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 pm1 18:27 Data reviewed: vital signs. Data interpreted: Pulse oximetry: on room air is 100 %. pm1 Interpretation: normal. 19:09 Counseling: I had a detailed discussion with the patient and/or guardian regarding: the pm1 historical points, exam findings, and any diagnostic results supporting the discharge/admit diagnosis, lab results, radiology results, the need for outpatient follow up, an OB/Gyne specialist, neurology director surgeon, to return to the emergency department if symptoms worsen or persist or if there are any questions or concerns that arise at home. 10/10 15:02 Order name: Basic Metabolic Panel pm1 10/10 15:02 Order name: CBC with Diff pm1 10/10 15:02 Order name: Creatinine for Radiology pm1 10/10 15:02 Order name: Hepatic Function pm1 10/10 15:02 Order name: Lipase pm1 10/10 16:31 Order name: CBC with Automated Diff; Complete Time: 16:41 EDMS 10/10 15:50 Order name: CT Abd/Pelvis - Without Contrast pm1 10/10 16:32 Order name: Creatinine (Radiology Only); Complete Time: 16:41 EDMS 10/10 16:32 Order name: Basic Metabolic Panel; Complete Time: 16:41 EDMS 10/10 16:32 Order name: Liver (Hepatic) Function; Complete Time: 16:41 EDMS 10/10 16:32 Order name: Lipase; Complete Time: 16:41 EDMS 10/10 17:02 Order name: CT; Complete Time: 17:03 EDMS 10/10 17:10 Order name: US Pelvis Complete; Complete Time: 19:04 pm1 10/10 15:02 Order name: IV Saline Lock; Complete Time: 15:46 pm1 10/10 15:02 Order name: Labs collected and sent; Complete Time: 15:46 pm1 10/10 15:02 Order name: Orthostatics; Complete Time: 15:46 pm1 Administered Medications: 15:30 Drug: NS 0.9% 1000 ml Route: IV; Rate: 1000 ml; Site: left antecubital; ca1 16:26 Follow up: IV Status: Completed infusion ca1 15:30 Drug: Zofran 4 mg Route: IVP; Site: left antecubital; ca1 17:07 Follow up: Response: No adverse reaction; Nausea is decreased ca1 15:33 Drug: morphine 4 mg Route: IVP; Site: left antecubital; ca1 17:07 Follow up: Response: No adverse reaction; Pain is decreased ca1 Disposition: 10/10/18 19:13 Discharged to Home. Impression: Other ovarian cysts. - Condition is Stable. - Discharge Instructions: Ovarian Cyst. - Prescriptions for promethazine 25 mg Oral Tablet - take 1 tablet by ORAL route every 6 hours As needed; 20 tablet. Tramadol 50 mg Oral Tablet - take 1 tablet by ORAL route every 8 hours as needed; 12 tablet. - Medication Reconciliation Form, Thank You Letter, Antibiotic Education, Prescription Opioid Use form. - Follow up: Emergency Department; When: As needed; Reason: Worsening of condition. Follow up: Zoe Williamson MD; When: 2 - 3 days; Reason: Recheck today's complaints, Continuance of care, Re-evaluation by your physician. - Problem is new. - Symptoms have improved. Addendum: 10/13/2018 06:58 Co-signature as Attending Physician, Richmond Gray MD. r n Signatures: Dispatcher [employer] EDMS Richmond Gray MD MD rn Marylin Amanda RN RN lp1 Bang Phillips, SENIOR PROCESS ANALYST SENIOR PROCESS ANALYST pm1 Billie Hogan RN RN ca1 Corrections: (The following items were deleted from the chart) 10/10 19:41 19:13 10/10/2018 19:13 Discharged to Home. Impression: Other ovarian cysts. Condition ca1 is Stable. Discharge Instructions: Ovarian Cyst. Prescriptions for Tylenol-Codeine #3 300-30 mg Oral Tablet - take 2 tablets by ORAL route every 6 hours As needed; 20 tablet, promethazine 25 mg Oral Tablet - take 1 tablet by ORAL route every 6 hours As needed; 20 tablet. and Forms are Medication Reconciliation Form, Thank You Letter, Antibiotic Education, Prescription Opioid Use. Follow up: Emergency Department; When: As needed; Reason: Worsening of condition. Follow up: Zoe Williamson; When: 2 - 3 days; Reason: Recheck today's complaints, Continuance of care, Re-evaluation by your physician. Problem is new. Symptoms have improved. pm1
--- NOTE | 2018-10-10 19:13 | ER ---
Nurse's Notes [facility] Name: Emily Amaral Age: 48 yrs Sex: Female : 1970 Arrival Date: 10/10/2018 Time: 14:41 Bed 26 Private MD: Diagnosis: Other ovarian cysts Presentation: 10/10 14:43 Presenting complaint: Patient states: Seen here 10 days ago for small intestinal lp1 infection; Has been taking antibiotics but no relief; "I'm still having a lot of abdominal tenderness"; Nausea, denies any diarrhea. Transition of care: patient was not received from another setting of care. Onset of symptoms was October 10, 2018. Risk Assessment: Do you want to hurt yourself or someone else? Patient reports no desire to harm self or others. Care prior to arrival: None. 14:43 Method Of Arrival: Ambulatory lp1 14:43 Acuity: PRIYA 3 lp1 15:50 Initial Sepsis Screen: Does the patient meet any 2 criteria? No. Patient's initial ca1 sepsis screen is negative. Does the patient have a suspected source of infection? No. Patient's initial sepsis screen is negative. 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 - Social history:: Smoking status: Patient/guardian denies using tobacco. - Ebola Screening: : No symptoms or risks identified at this time. Screenin:48 Abuse screen: Denies threats or abuse. Denies injuries from another. Nutritional lp1 screening: No deficits noted. Tuberculosis screening: No symptoms or risk factors identified. Fall Risk None identified. Assessment: 14:55 General: Appears in no apparent distress. comfortable, Behavior is calm, cooperative, ca1 appropriate for age. Pain: Complains of pain in abdomen Pain does not radiate. Pain currently is 7 out of 10 on a pain scale. Pain began 2-3 days ago. Is intermittent. Neuro: Level of Consciousness is awake, alert, obeys commands, Oriented to person, place, time, situation. Neuro: Reports dizziness. Cardiovascular: Heart tones S1 S2 present Capillary refill < 3 seconds Patient's skin is warm and dry. Respiratory: Airway is patent Respiratory effort is even, unlabored, Respiratory pattern is regular, symmetrical, Breath sounds are clear bilaterally. GI: Abdomen is round non-distended, Bowel sounds present X 4 quads. Abd is soft X 4 quads Abdomen is tender to palpation in right upper quadrant and left upper quadrant Reports nausea. : No deficits noted. No signs and/or symptoms were reported regarding the genitourinary system. EENT: No deficits noted. No signs and/or symptoms were reported regarding the EENT system. Derm: Skin is intact, is healthy with good turgor, Skin is pink, warm \\T\\ dry. Musculoskeletal: Circulation, motion, and sensation intact. Capillary refill < 3 seconds, Range of motion: intact in all extremities. 15:50 Reassessment: Patient appears in no apparent distress at this time. Patient and/or ca1 family updated on plan of care and expected duration. Pain level reassessed. Patient is alert, oriented x 3, equal unlabored respirations, skin warm/dry/pink. 17:06 Reassessment: Patient appears in no apparent distress at this time. Patient and/or ca1 family updated on plan of care and expected duration. Pain level reassessed. Patient is alert, oriented x 3, equal unlabored respirations, skin warm/dry/pink. KIKI Cuenca at bedside discussing test results with ptt. 17:38 Reassessment: Patient appears in no apparent distress at this time. Patient is alert, ca1 oriented x 3, equal unlabored respirations, skin warm/dry/pink. Ultrasound at bedside. 18:35 Reassessment: Patient appears in no apparent distress at this time. Patient and/or ca1 family updated on plan of care and expected duration. Pain level reassessed. Patient is alert, oriented x 3, equal unlabored respirations, skin warm/dry/pink. 19:39 Reassessment: Patient appears in no apparent distress at this time. Patient is alert, ca1 oriented x 3, equal unlabored respirations, skin warm/dry/pink. Vital Signs: 14:46 BP 127 / 76; Pulse 72; Resp 18; Temp 98.1(O); Pulse Ox 98% on R/A; Weight 90.72 kg (R); lp1 Height 5 ft. 5 in. (165.10 cm); Pain 8/10; 15:08 BP 112 / 67 Supine; Pulse 68; Resp 18; Pulse Ox 95% on R/A; mh5 15:10 BP 117 / 77 Sitting; Pulse 81; Resp 17; Pulse Ox 95% on R/A; mh5 15:12 BP 118 / 78 Standing; Pulse 73; Resp 20; Pulse Ox 94% on R/A; mh5 15:50 BP 125 / 78; Pulse 67; Resp 19 S; Pulse Ox 100% on R/A; ca1 16:45 BP 138 / 86; Pulse 70; Resp 16; Temp 98.(O); Pulse Ox 97% on R/A; ca1 17:38 BP 133 / 76; Pulse 93; Resp 17; Pulse Ox 100% ; ca1 18:19 BP 138 / 78; Pulse 62; Resp 17 S; Temp 98(O); Pulse Ox 100% on R/A; ca1 19:32 BP 113 / 59; Pulse 69; Resp 16 S; Temp 98(O); Pulse Ox 100% on R/A; ca1 14:46 Body Mass Index 33.28 (90.72 kg, 165.10 cm) lp1 ED Course: 14:41 Patient arrived in ED. rg4 14:45 Triage completed. lp1 14:45 Arm band placed on left wrist. lp1 14:51 Ludmila Ramirez, ANNY is Primary Nurse. aj1 14:53 Bang Phillips NP is PHCP. pm1 14:53 Richmond Gray MD is Attending Physician. pm1 14:55 Patient has correct armband on for positive identification. Placed in gown. Bed in low ca1 position. Call light in reach. Side rails up X 1. Pulse ox on. NIBP on. Warm blanket given. 15:30 No provider procedures requiring assistance completed. Inserted saline lock: 20 gauge ca1 in left antecubital area, using aseptic technique. Blood collected. 16:29 CT completed. Patient tolerated procedure well. Patient moved to CT via wheelchair. jg6 18:49 US Pelvis Complete In Process Unspecified. EDMS 19:11 Zoe Williamson MD is Referral Physician. pm1 19:41 IV discontinued, intact, bleeding controlled, No redness/swelling at site. Pressure ca1 dressing applied. Administered Medications: 15:30 Drug: NS 0.9% 1000 ml Route: IV; Rate: 1000 ml; Site: left antecubital; ca1 16:26 Follow up: IV Status: Completed infusion ca1 15:30 Drug: Zofran 4 mg Route: IVP; Site: left antecubital; ca1 17:07 Follow up: Response: No adverse reaction; Nausea is decreased ca1 15:33 Drug: morphine 4 mg Route: IVP; Site: left antecubital; ca1 17:07 Follow up: Response: No adverse reaction; Pain is decreased ca1 Outcome: 19:13 Discharge ordered by MD. pm1 19:41 Discharged to home ambulatory, with family. ca1 19:41 Condition: stable 19:41 Discharge instructions given to patient, Instructed on discharge instructions, follow up and referral plans. medication usage, Demonstrated understanding of instructions, follow-up care, medications, Prescriptions given X 2. 19:41 Patient left the ED. ca1 Signatures: Dispatcher [employer] EDMS Ludmila Ramirez RN RN aj1 Marylin Amanda RN RN lp1 Bang Phillips, TRAUMA DOCTOR TRAUMA DOCTOR pm1 Shelby Kaur 4 Marily Esteban 5 Susie Kaur6 Billie Hogan RN RN ca1 Corrections: (The following items were deleted from the chart) 15:18 15:05 BP 112 / 67 Supine; Pulse 68bpm; Resp 18bpm; Pulse Ox 95% RA; mh5 mh5
== END 2018-10-10 19:41 | disposition home or self-care (01) ==
LOC: ER 14:38
DX: N83.202 Unspecified ovarian cyst, left side (principal); C53.9 Malignant neoplasm of cervix uteri, unspecified; Z88.5 Allergy status to narcotic agent
CPT/HCPCS: 36415; 74176; 76856; 80048; 80076; 83690; 85025; 96361; 96374; 96375; 99284; J2405; J7030

== ENCOUNTER 2019-01-10 14:30 | Emergency (ER) | payer SELFPAY ==
--- OUTSIDE RECORDS SUMMARY | 2019-01-10 14:31 | XMS REPORT ---
:1970 [facility] Address [address] [place] [address] Dr. [address] 135 [id number] Care Team Providers Name Role Phone Unavailable Unavailable Unavailable Problems This patient has no known problems. Allergies, Adverse Reactions, Alerts This patient has no known allergies or adverse reactions. Medications This patient has no known medications.
--- NOTE | 2019-01-10 15:24 | ER ---
Nurse's Notes [facility] Name: Emily Amaral Age: 48 yrs Sex: Female : 1970 Arrival Date: 01/10/2019 Time: 14:31 Bed 7 Private MD: Diagnosis: Cutaneous abscess of face Presentation: 01/10 14:37 Presenting complaint: Patient states: I have an abscess on my face, been there for la1 three days. Transition of care: patient was not received from another setting of care. Onset of symptoms was January 10, 2019. Risk Assessment: Do you want to hurt yourself or someone else? Patient reports no desire to harm self or others. Initial Sepsis Screen: Does the patient meet any 2 criteria? No. Patient's initial sepsis screen is negative. Does the patient have a suspected source of infection? No. Patient's initial sepsis screen is negative. Care prior to arrival: None. 14:37 Method Of Arrival: Ambulatory la1 14:37 Acuity: PRIYA 4 la1 Historical: - Allergies: 14:38 Demerol; la1 - PMHx: 14:38 cervical cancer; Endometrosis; Pancreatitis; la1 - Immunization history:: Adult Immunizations up to date. - Social history:: Smoking status: Patient/guardian denies using tobacco. - Ebola Screening: : No symptoms or risks identified at this time. Screenin:01 Abuse screen: Denies threats or abuse. Nutritional screening: No deficits noted. ae4 Tuberculosis screening: No symptoms or risk factors identified. Fall Risk None identified. Assessment: 14:58 General: Appears in no apparent distress. comfortable, Behavior is calm, cooperative. ae4 Pain: Complains of pain in right jaw Pain currently is 7 out of 10 on a pain scale. Neuro: Level of Consciousness is awake, alert, obeys commands, Oriented to person, place, time, situation, Appropriate for age. Cardiovascular: Patient's skin is warm and dry. Respiratory: Airway is patent Respiratory effort is even, unlabored, Respiratory pattern is regular, symmetrical. GI: No signs and/or symptoms were reported involving the gastrointestinal system. Abdomen is round. : No signs and/or symptoms were reported regarding the genitourinary system. EENT: No signs and/or symptoms were reported regarding the EENT system. Derm: Wound noted right jaw Wound is Redness and surrounding swelling to lesion. Musculoskeletal: No signs and/or symptoms reported regarding the musculoskeletal system. 15:34 Reassessment: PT D/C HOME AMBULATORY, DX WITH CUTANEOUS ABSCESS. bp Vital Signs: 14:38 BP 124 / 82; Pulse 87; Resp 16; Temp 97.5; Pulse Ox 100% on R/A; Weight 88.45 kg; la1 Height 5 ft. 5 in. (165.10 cm); 15:34 BP 119 / 83; Pulse 79; Resp 14; Temp 97.5; Pulse Ox 97% ; bp 14:38 Body Mass Index 32.45 (88.45 kg, 165.10 cm) la1 ED Course: 14:31 Patient arrived in ED. as 14:38 Triage completed. la1 14:38 Arm band placed on right wrist. la1 14:40 Kameron Christiansen, RN is Primary Nurse. bp 14:58 Primary Nurse role handed off by Kameron Christiansen, ANNY ae4 14:58 Kieran Samaniego RN is Primary Nurse. ae4 15:01 Bed in low position. Call light in reach. Side rails up X 1. Pulse ox on. NIBP on. ae4 15:08 Bang Phillips NP is PHCP. pm1 15:09 Nicol Chavira MD is Attending Physician. pm1 15:35 No provider procedures requiring assistance completed. Patient did not have IV access bp during this emergency room visit. 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 Exp: bp 09/02/2020. Lot #: [id number]. } Route: IM; Site: right deltoid; 15:34 Follow up: Response: Medication administered at discharge. bp Outcome: 15:23 Discharge ordered by . pm1 15:35 Discharged to home ambulatory, with family. bp 15:35 Condition: stable 15:35 Discharge instructions given to patient, Instructed on discharge instructions, follow up and referral plans. medication usage, wound care, Demonstrated understanding of instructions, follow-up care, medications, wound care, Prescriptions given X 1. 15:35 Patient left the ED. bp Signatures: Mickie Esteban Lee, RN RN la1 Bang Phillips, KIKI WIRE COILER pm1 Kameron Christiansen RN RN bp Kieran Samaniego, RN RN ae4
--- NOTE | 2019-01-10 15:24 | EDPHYS ---
Physician Documentation [facility] Name: Emily Amaral Age: 48 yrs Sex: Female : 1970 Arrival Date: 01/10/2019 Time: 14:31 Bed 7 Private MD: ED Physician Nicol Chavira HPI: 01/10 15:23 This 48 yrs old Female presents to ER via Ambulatory with complaints of pm1 Abscess. 15:23 The patient presents with an abscess of the right jaw. Description: raised, swollen. pm1 Onset: The symptoms/episode began/occurred 3 day(s) ago. Possible cause(s): unknown. Associated signs and symptoms: Pertinent positives: drainage, Pertinent negatives: fever. Modifying factors: the symptoms are alleviated by nothing, the symptoms are aggravated by nothing. Severity of symptoms: in the emergency department the symptoms are actually worse. The patient has not experienced similar symptoms in the past. The patient has not recently seen a physician. Historical: - Allergies: 14:38 Demerol; la1 - PMHx: 14:38 cervical cancer; Endometrosis; Pancreatitis; la1 - Immunization history:: Adult Immunizations up to date. - Social history:: Smoking status: Patient/guardian denies using tobacco. - Ebola Screening: : No symptoms or risks identified at this time. ROS: 15:23 Constitutional: Negative for fever, chills, and weight loss, Eyes: Negative for injury, pm1 pain, redness, and discharge, ENT: Negative for injury, pain, and discharge, Neck: Negative for injury, pain, and swelling, Cardiovascular: Negative for chest pain, palpitations, and edema, Respiratory: Negative for shortness of breath, cough, wheezing, and pleuritic chest pain, Abdomen/GI: Negative for abdominal pain, nausea, vomiting, diarrhea, and constipation, Back: Negative for injury and pain, MS/Extremity: Negative for injury and deformity. 15:23 Neuro: Negative for headache, weakness, numbness, tingling, and seizure. 15:23 Skin: Positive for swelling, of the right jaw. Exam: 15:23 Constitutional: This is a well developed, well nourished patient who is awake, alert, pm1 and in no acute distress. Head/Face: Normocephalic, atraumatic. Neck: Trachea midline, no thyromegaly or masses palpated, and no cervical lymphadenopathy. Supple, full range of motion without nuchal rigidity, or vertebral point tenderness. No Meningismus. Chest/axilla: Normal chest wall appearance and motion. Nontender with no deformity. No lesions are appreciated. Cardiovascular: Regular rate and rhythm with a normal S1 and S2. No gallops, murmurs, or rubs. Normal PMI, no JVD. No pulse deficits. Respiratory: Lungs have equal breath sounds bilaterally, clear to auscultation and percussion. No rales, rhonchi or wheezes noted. No increased work of breathing, no retractions or nasal flaring. Abdomen/GI: Soft, non-tender, with normal bowel sounds. No distension or tympany. No guarding or rebound. No evidence of tenderness throughout. Back: No spinal tenderness. No costovertebral tenderness. Full range of motion. 15:23 Skin: Appearance: normal except for affected area, abscess, that is small, approximately 1.5 cm(s), of the right jaw, No drainage, fluctuance, pointing, or surrounding cellulitis. Small central scab present. Vital Signs: 14:38 BP 124 / 82; Pulse 87; Resp 16; Temp 97.5; Pulse Ox 100% on R/A; Weight 88.45 kg; la1 Height 5 ft. 5 in. (165.10 cm); 15:34 BP 119 / 83; Pulse 79; Resp 14; Temp 97.5; Pulse Ox 97% ; bp 14:38 Body Mass Index 32.45 (88.45 kg, 165.10 cm) la1 MDM: 15:09 Patient medically screened. pm1 15:23 Data reviewed: vital signs. Data interpreted: Pulse oximetry: on room air is 100 %. pm1 Interpretation: normal. Counseling: I had a detailed discussion with the patient and/or guardian regarding: the historical points, exam findings, and any diagnostic results supporting the discharge/admit diagnosis, the need for outpatient follow up, to return to the emergency department if symptoms worsen or persist or if there are any questions or concerns that arise at home. 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 Exp: bp 09/02/2020. Lot #: [id number]. } Route: IM; Site: right deltoid; 15:34 Follow up: Response: Medication administered at discharge. bp Disposition: 01/11 07:13 Co-signature as Attending Physician, Nicol Chavira MD. ma2 Disposition: 01/10/19 15:23 Discharged to Home. Impression: Cutaneous abscess of face. - Condition is Stable. - Discharge Instructions: Skin Abscess. - Prescriptions for Clindamycin HCl 300 mg Oral Capsule - take 1 capsule by ORAL route every 6 hours for 10 days; 40 capsule. - Medication Reconciliation Form, Thank You Letter, Antibiotic Education, Prescription Opioid Use form. - Follow up: Emergency Department; When: As needed; Reason: Worsening of condition. Follow up: Private Physician; When: 2 - 3 days; Reason: Recheck today's complaints, Continuance of care, Re-evaluation by your physician. - Problem is new. - Symptoms have improved. Signatures: Bryce Cobian, RN RN la1 Bang Phillips, KIKI SHUFFLE BOARD OPERATOR pm1 Kameron Christiansen RN RN Nicol Chavira MD MD ga2 Corrections: (The following items were deleted from the chart) 01/10 15:35 15:23 01/10/2019 15:23 Discharged to Home. Impression: Cutaneous abscess of face. bp Condition is Stable. Forms are Medication Reconciliation Form, Thank You Letter, Antibiotic Education, Prescription Opioid Use. Follow up: Emergency Department; When: As needed; Reason: Worsening of condition. Follow up: Private Physician; When: 2 - 3 days; Reason: Recheck today's complaints, Continuance of care, Re-evaluation by your physician. Problem is new. Symptoms have improved. pm1
[2019-01-10] MEDS ORDERED: TETANUS & DIPHTHERIA TOX,ADULT 0.5 ML VIAL ONE (15:31)
[2019-01-10 15:49] VITALS: TEMP 97.5
[2019-01-10 15:50] VITALS: BP 119/83; O2SAT 97
== END 2019-01-10 15:35 | disposition home or self-care (01) ==
LOC: ER 14:30
DX: L02.01 Cutaneous abscess of face (principal); Z23 Encounter for immunization; Z88.6 Allergy status to analgesic agent
CPT/HCPCS: 90471; 90714; 99283

== ENCOUNTER 2019-07-03 13:13 | Emergency (ER) | payer OTHER, SELFPAY ==
--- OUTSIDE RECORDS SUMMARY | 2019-07-03 13:15 | XMS REPORT ---
:1970 [facility] Address [address] [place] [address] Dr. Pelletier[address] [place] [id number] Care Team Providers Name Role Phone Unavailable Unavailable Unavailable Problems This patient has no known problems. Allergies, Adverse Reactions, Alerts This patient has no known allergies or adverse reactions. Medications This patient has no known medications.
--- NOTE | 2019-07-03 13:37 | EDPHYS ---
Physician Documentation [facility] Name: Emily Amaral Age: 49 yrs Sex: Female : 1970 Arrival Date: 07/03/2019 Time: 13:19 Bed 5 Private MD: ED Physician Donny Bryant HPI: 07/02 17:06 This 49 yrs old Female presents to ER via Ambulatory with complaints of Sore kdr Throat. 17:06 This 49 yrs old Female presents to ER via Ambulatory with complaints of Loss kdr of voice. 17:06 The patient presents with Loss of voice yeaterday. The patient describes throat pain as kdr none. Onset: The symptoms/episode began/occurred yesterday. Severity of symptoms: At their worst the symptoms were mild, in the emergency department the symptoms are unchanged. Modifying factors: The symptoms are alleviated by nothing, the symptoms are aggravated by nothing, Patient's oral intake status: good. Associated signs and symptoms: The patient has no apparent associated signs or symptoms. The patient has experienced similar episodes in the past, multiple times, and the symptoms today are exactly the same, States that she has this problem every year at about the same time. The patient has not recently seen a physician. 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 - Social history:: Smoking status: Patient denies any tobacco usage or history of. ROS: 17:06 Constitutional: Negative for fever, chills, and weight loss, Eyes: Negative for injury, kdr pain, redness, and discharge, Neck: Negative for injury, pain, and swelling, Cardiovascular: Negative for chest pain, palpitations, and edema, Respiratory: Negative for shortness of breath, cough, wheezing, and pleuritic chest pain, Abdomen/GI: Negative for abdominal pain, nausea, vomiting, diarrhea, and constipation, Back: Negative for injury and pain, : Negative for injury, bleeding, discharge, and swelling, MS/Extremity: Negative for injury and deformity, Skin: Negative for injury, rash, and discoloration, Neuro: Negative for headache, weakness, numbness, tingling, and seizure activity. Psych: Negative for depression, anxiety, suicide ideation, homicidal ideation, and hallucinations, Allergy/Immunology: Negative for hives, rash, and allergies, Endocrine: Negative for neck swelling, polydipsia, polyuria, polyphagia, and marked weight changes, Hematologic/Lymphatic: Negative for swollen nodes, abnormal bleeding, and unusual bruising. Exam: 17:06 Constitutional: This is a well developed, well nourished patient who is awake, alert, kdr and in no acute distress. Head/Face: Normocephalic, atraumatic. Eyes: Pupils equal round and reactive to light, extra-ocular motions intact. Lids and lashes normal. Conjunctiva and sclera are non-icteric and not injected. Cornea within normal limits. Periorbital areas with no swelling, redness, or edema. ENT: Nares patent. No nasal discharge, no septal abnormalities noted. Tympanic membranes are normal and external auditory canals are clear. Oropharynx with no redness, swelling, or masses, exudates, or evidence of obstruction, uvula midline. Mucous membranes moist. Voice is hoarse but o/w normal Neck: Trachea midline, no thyromegaly or masses palpated, and no cervical lymphadenopathy. Supple, full range of motion without nuchal rigidity, or vertebral point tenderness. No Meningismus. Chest/axilla: Normal chest wall appearance and motion. Nontender with no deformity. No lesions are appreciated. Cardiovascular: Regular rate and rhythm with a normal S1 and S2. No gallops, murmurs, or rubs. Normal PMI, no JVD. No pulse deficits. Respiratory: Lungs have equal breath sounds bilaterally, clear to auscultation and percussion. No rales, rhonchi or wheezes noted. No increased work of breathing, no retractions or nasal flaring. Vital Signs: 13:38 BP 121 / 83; Pulse 89; Resp 16; Temp 98; Pulse Ox 97% ; jl7 MDM: 13:35 Patient medically screened. kdr 17:06 Data reviewed: vital signs, nurses notes, lab test result(s), radiologic studies. kdr Counseling: I had a detailed discussion with the patient and/or guardian regarding: the historical points, exam findings, and any diagnostic results supporting the discharge/admit diagnosis, lab results, the need for outpatient follow up. Administered Medications: No medications were administered Disposition: 07/03/19 13:35 Discharged to Home. Impression: Acute laryngitis. - Condition is Stable. - Discharge Instructions: Laryngitis. - Work release form, Medication Reconciliation Form, Thank You Letter form. - Follow up: Private Physician; When: 2 - 3 days; Reason: If symptoms return, Further diagnostic work-up, Recheck today's complaints, Continuance of care, Re-evaluation by your physician. - Problem is new. - Symptoms have improved. Signatures: Dispatcher [employer] [facility] Donny Bryant MD MD kdr Rowan Vanessa RN RN jl7 Corrections: (The following items were deleted from the chart) 13:42 13:27 Group A Streptococcus Rapid [id number] ordered. [facility] 13:52 13:35 07/03/2019 13:35 Discharged to Home. Impression: Acute laryngitis. Condition is jl7 Stable. Forms are Medication Reconciliation Form, Thank You Letter, Antibiotic Education, Prescription Opioid Use. Follow up: Private Physician; When: 2 - 3 days; Reason: If symptoms return, Further diagnostic work-up, Recheck today's complaints, Continuance of care, Re-evaluation by your physician. Problem is new. Symptoms have improved. kdr
--- NOTE | 2019-07-03 13:37 | ER ---
Nurse's Notes [facility] Name: Emily Amaral Age: 49 yrs Sex: Female : 1970 Arrival Date: 07/03/2019 Time: 13:19 Bed 5 Private MD: Diagnosis: Acute laryngitis Presentation: 07/02 13:29 Chief complaint: Patient states: feels better today than she has all week. Pt reports dm5 laryngitis for 2-3 days dry cough no known fever. reports work sent her home and told to get checked out. Coronavirus screen: The patient has NOT traveled to a country currently being monitored by the [facility] within the last 14 days. Proceed with normal triage procedures. The patient has NOT had contact with any known and/or suspected case of coronavirus. Proceed with normal triage procedures. Ebola Screen: Patient negative for fever greater than or equal to 101.5 degrees Fahrenheit, and additional compatible Ebola Virus Disease symptoms Patient denies exposure to infectious person. Patient denies travel to an Ebola-affected area in the 21 days before illness onset. No symptoms or risks identified at this time. 13:29 Method Of Arrival: Ambulatory dm5 13:29 Acuity: PRIYA 4 dm5 13:38 Initial Sepsis Screen: Does the patient meet any 2 criteria? No. Patient's initial jl7 sepsis screen is negative. Does the patient have a suspected source of infection? No. Patient's initial sepsis screen is negative. Risk Assessment: Do you want to hurt yourself or someone else? Patient reports no desire to harm self or others. Onset of symptoms is unknown. Triage Assessment: 13:40 General: Appears in no apparent distress. uncomfortable, Behavior is calm, cooperative, jl7 appropriate for age. Pain: Denies pain. EENT: Throat is reddened. 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 - Social history:: Smoking status: Patient denies any tobacco usage or history of. Screenin:41 Abuse screen: Denies threats or abuse. Denies injuries from another. Nutritional jl7 screening: No deficits noted. Tuberculosis screening: No symptoms or risk factors identified. Fall Risk None identified. Vital Signs: 13:38 BP 121 / 83; Pulse 89; Resp 16; Temp 98; Pulse Ox 97% ; jl7 ED Course: 13:19 Patient arrived in ED. mr 13:23 Donny Bryant MD is Attending Physician. kdr 13:32 Triage completed. dm5 13:38 Rowan Vanessa, RN is Primary Nurse. jl7 13:40 Arm band placed on right wrist. jl7 13:41 Patient has correct armband on for positive identification. Bed in low position. Call jl7 light in reach. Side rails up X 1. 13:41 No provider procedures requiring assistance completed. Patient did not have IV access jl7 during this emergency room visit. Administered Medications: No medications were administered Outcome: 13:35 Discharge ordered by . kdr 13:41 Discharged to home ambulatory. jl7 13:41 Condition: stable 13:41 Discharge instructions given to patient, Instructed on discharge instructions, follow up and referral plans. Demonstrated understanding of instructions, follow-up care. 13:52 Patient left the ED. jl7 Signatures: Jessica Barbosa, RN RN dm5 Donny Bryant MD MD kdr Rivera, Mary mr Rowan Vanessa, RN RN jl7
[2019-07-03 14:20] VITALS: BP 121/83; TEMP 98; O2SAT 97
== END 2019-07-03 13:52 | disposition home or self-care (01) ==
LOC: ER 13:13
DX: J04.0 Acute laryngitis (principal); Z85.41 Personal history of malignant neoplasm of cervix uteri; Z88.5 Allergy status to narcotic agent
CPT/HCPCS: 99281

== ENCOUNTER 2021-03-28 20:25 | Emergency (ER) | payer OTHER ==
--- OUTSIDE RECORDS SUMMARY | 2021-03-28 20:28 | XMS REPORT | Continuity of Care Document ---
:1970 Author Organization [facility] t Address [address] [place] [address] Dr. Pelletier. [address] [place] [id number] Care Team Providers Name Role Phone Unavailable Unavailable Unavailable Problems This patient has no known problems. Allergies, Adverse Reactions, Alerts This patient has no known allergies or adverse reactions. Medications This patient has no known medications. Procedures This patient has no known procedures. Results This patient has no known results.
[2021-03-28] MEDS ORDERED: TETANUS & DIPHTHERIA TOX,ADULT 0.5 ML VIAL ONE (21:10)
[2021-03-28] MEDS ORDERED: AMOX/K CLAV 875 MG TAB ONE (21:10)
--- NOTE | 2021-03-28 22:02 | EDPHYS ---
Physician Documentation [facility] Name: Emily Amaral Age: 50 yrs Sex: Female : 1970 Arrival Date: 03/28/2021 Time: 20:29 Bed DIS3 Private MD: ED Physician Nikko Foster HPI: 03/28 21:08 This 50 yrs old Female presents to ER via Ambulatory with complaints of Dog Bite. jr8 21:08 This is a 50-year-old female patient that came in for evaluation of right hand pain and jr8 puncture secondary to a dog bite. Patient stated that he she was transferring dogs and one of the dogs got out and killed some chickens and then was trying to go after ago. Was able to stop them at that time but reached around and bit her in the right hand. Dog is quarantined at this time and up-to-date on immunizations.. 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 - Social history:: Smoking status: unknown. ROS: 21:08 Eyes: Negative for injury, pain, redness, and discharge, ENT: Negative for injury, jr8 pain, and discharge, Neck: Negative for injury, pain, and swelling, Cardiovascular: Negative for chest pain, palpitations, and edema, Respiratory: Negative for shortness of breath, cough, wheezing, and pleuritic chest pain, Abdomen/GI: Negative for abdominal pain, nausea, vomiting, diarrhea, and constipation, Back: Negative for injury and pain, Neuro: Negative for headache, weakness, numbness, tingling, and seizure. 21:08 MS/extremity: Positive for ecchymosis, pain, puncture, swelling, tenderness, of the right hand. Exam: 21:08 Constitutional: This is a well developed, well nourished patient who is awake, alert, jr8 and in no acute distress. Cardiovascular: Regular rate and rhythm with a normal S1 and S2. No gallops, murmurs, or rubs. Normal PMI, no JVD. No pulse deficits. Respiratory: Lungs have equal breath sounds bilaterally, clear to auscultation and percussion. No rales, rhonchi or wheezes noted. No increased work of breathing, no retractions or nasal flaring. Skin: Warm, dry with normal turgor. Normal color with no rashes, no lesions, and no evidence of cellulitis. Neuro: Awake and alert, GCS 15, oriented to person, place, time, and situation. Motor strength 5/5 in all extremities. Sensory grossly intact. 21:08 Musculoskeletal/extremity: Extremities: grossly normal except: noted in the right hand: Patient has swelling and bruising to the dorsal right hand with a puncture wound between the second and third metacarpal regions of the right hand. Bleeding controlled. Limited range of motion secondary to pain and swelling. 2+ radial pulses to affected extremity appreciated with normal sensation. Remainder of extremities unremarkable.. Vital Signs: 20:36 BP 125 / 75; Pulse 78; Resp 18; Temp 98.9; Pulse Ox 98% on R/A; Weight 92.99 kg; Height da3 5 ft. 4 in. (162.56 cm); 22:27 BP 125 / 73; Pulse 65; Resp 16 S; Pulse Ox 98% on R/A; bb 20:36 Body Mass Index 35.19 (92.99 kg, 162.56 cm) da3 MDM: 21:06 Patient medically screened. jr8 21:08 Rabies Status: Rabies immunization is not indicated. Data reviewed: vital signs, nurses jr8 notes. Data reviewed: radiologic studies, plain films. Data interpreted: Pulse oximetry: on room air is 98 %. Interpretation: normal. Counseling: I had a detailed discussion with the patient and/or guardian regarding: the historical points, exam findings, and any diagnostic results supporting the discharge/admit diagnosis, radiology results, the need for outpatient follow up, a family practitioner, to return to the emergency department if symptoms worsen or persist or if there are any questions or concerns that arise at home. 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 Exp: as6 09/02/2022. Lot #: [id number]. } Route: IM; Site: left deltoid; 22:27 Follow up: Response: No adverse reaction bb 21:18 Drug: Augmentin (Amoxicillin-Clavulanate) 875 mg Route: PO; as6 22:27 Follow up: Response: No adverse reaction bb Disposition: 03/29 01:18 Co-signature as Attending Physician, Nikko Foster MD. [facility] Disposition Summary: 03/28/21 22:01 Discharge Ordered Location: Home jr8 Problem: new jr8 Symptoms: have improved jr8 Condition: Stable jr8 Diagnosis - Bitten by dog jr8 - Contusion of hand jr8 - Puncture wound without foreign body of hand jr8 Followup: jr8 - With: Private Physician - When: 2 - 3 days - Reason: Wound Recheck, Recheck today's complaints, Continuance of care, Re-evaluation by your physician Discharge Instructions: - Discharge Summary Sheet jr8 - Animal Bite, Adult jr8 Forms: - Medication Reconciliation Form jr8 - Thank You Letter jr8 - Antibiotic Education jr8 - Prescription Opioid Use jr8 Prescriptions: - Augmentin 875-125 mg Oral Tablet - take 1 tablet by ORAL route every 12 hours for 10 days; 20 tablet; Refills: 0, jr8 Product Selection Permitted - Ibuprofen 800 mg Oral Tablet - take 1 tablet by ORAL route every 12 hours As needed take with food; 20 tablet; jr8 Refills: 0, Product Selection Permitted Signatures: Dispatcher [employer] Orly Brock, RN RN Ulises Ortiz PA PA 8 Nikko Foster MD MD 7 Surya Manning, RN RN da3 Amadou Wooten, RN RN as6
--- NOTE | 2021-03-28 22:02 | ER ---
Nurse's Notes [facility] Name: Emily Amaral Age: 50 yrs Sex: Female : 1970 Arrival Date: 03/28/2021 Time: 20:29 Bed DIS3 Private MD: Diagnosis: Bitten by dog;Contusion of hand;Puncture wound without foreign body of hand Presentation: 03/28 20:36 Chief complaint: Patient states: Bite from dog. Coronavirus screen: Vaccine status: da3 Patient reports being unvaccinated. Ebola Screen: No symptoms or risks identified at this time. Risk Assessment: Do you want to hurt yourself or someone else? Patient reports no desire to harm self or others. 20:36 Method Of Arrival: Ambulatory da3 20:36 Acuity: PRIYA 4 da3 22:23 Initial Sepsis Screen: Does the patient meet any 2 criteria? No. Patient's initial bb sepsis screen is negative. Does the patient have a suspected source of infection? No. Patient's initial sepsis screen is negative. Onset of symptoms was March 28, 2021. Triage Assessment: 20:39 Bite description: bite sustained to right hand by a dog. Pain: Complains of pain in da3 right hand. 22:27 Bite description: animal information: vaccination(s) is unknown. 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 - Social history:: Smoking status: unknown. Screenin:21 Abuse screen: Denies threats or abuse. Nutritional screening: No deficits noted. bb Tuberculosis screening: No symptoms or risk factors identified. Fall Risk None identified. Assessment: 21:25 General: Appears in no apparent distress. uncomfortable, Behavior is calm, cooperative, bb Reports dog bite to right hand. Pain: Complains of pain in right hand. Neuro: Level of Consciousness is awake, alert, obeys commands, Oriented to person, place, time, situation. Cardiovascular: Capillary refill < 3 seconds Patient's skin is warm and dry. Respiratory: Airway is patent Respiratory effort is even, unlabored. GI: No signs and/or symptoms were reported involving the gastrointestinal system. Derm: Skin is intact, puncture wound to right hand Skin is pink, warm \T\ dry. Musculoskeletal: Circulation, motion, and sensation intact. 22:24 Reassessment: Patient is alert, oriented x 3, equal unlabored respirations, skin bb warm/dry/pink. pt verbalized understanding of and agrees to plan of care discharge instructions given pt ambulated with steady gait to exit. Vital Signs: 20:36 BP 125 / 75; Pulse 78; Resp 18; Temp 98.9; Pulse Ox 98% on R/A; Weight 92.99 kg; Height da3 5 ft. 4 in. (162.56 cm); 22:27 BP 125 / 73; Pulse 65; Resp 16 S; Pulse Ox 98% on R/A; bb 20:36 Body Mass Index 35.19 (92.99 kg, 162.56 cm) da3 ED Course: 20:29 Patient arrived in ED. ag3 20:38 Triage completed. da3 21:06 Ulises Arnold PA is PHCP. jr8 21:06 Nikko Foster MD is Attending Physician. jr8 21:15 Arm band placed on. bb 21:17 Amadou Wooten, ANNY is Primary Nurse. as6 21:55 XRAY Hand RIGHT 3 View In Process Unspecified. EDMS 22:10 Wound care: to puncture located on right hand was cleaned with soap and water, dressed bb with Neosporin, 4X4s, debbie wrap. 22:21 Patient has correct armband on for positive identification. bb 22:23 No provider procedures requiring assistance completed. Patient did not have IV access bb during this emergency room visit. 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 Exp: as6 09/02/2022. Lot #: [id number]. } Route: IM; Site: left deltoid; 22:27 Follow up: Response: No adverse reaction bb 21:18 Drug: Augmentin (Amoxicillin-Clavulanate) 875 mg Route: PO; as6 22:27 Follow up: Response: No adverse reaction bb Outcome: 22:01 Discharge ordered by . jr8 22:26 Discharged to home ambulatory. bb 22:26 Condition: stable 22:26 Discharge instructions given to patient, Instructed on discharge instructions, follow up and referral plans. medication usage, wound care, Demonstrated understanding of instructions, follow-up care, medications, wound care, Prescriptions given X 2. 22:27 Patient left the ED. bb Signatures: Dispatcher [employer] EDOrly Díaz RN RN Ulises Ortiz PA PA jr8 Laura Zacarias ag3 Surya Manning RN RN da3 Amadou Wooten RN RN as6
--- NOTE | 2021-03-28 22:05 | RAD REPORT ---
EXAM DESCRIPTION: RAD - Hand Right 3 View - 03/28/2021 9:56 pm CLINICAL HISTORY: Dog bite FINDINGS: No fracture or dislocation is seen.
[2021-03-28 22:41] VITALS: TEMP 98.9; O2SAT 98
[2021-03-28 22:46] VITALS: BP 125/73
== END 2021-03-28 22:27 | disposition home or self-care (01) ==
LOC: ER 20:25
DX: S61.431A Puncture wound without foreign body of right hand, initial encounter (principal); W54.0XXA Bitten by dog, initial encounter; Y93.89 Activity, other specified; Z23 Encounter for immunization; Z88.5 Allergy status to narcotic agent
CPT/HCPCS: 90471; 90714; 99284

== ENCOUNTER 2021-06-05 13:07 | Emergency (ER) | payer BC, OTHER ==
--- OUTSIDE RECORDS SUMMARY | 2021-06-05 13:09 | XMS REPORT | Continuity of Care Document ---
:[address] [facility] t Address [address] [place] [address] Dr. Pelletier. [address] [place] [id number] Care Team Providers Name Role Phone Unavailable Unavailable Unavailable Problems This patient has no known problems. Allergies, Adverse Reactions, Alerts This patient has no known allergies or adverse reactions. Medications This patient has no known medications. Procedures This patient has no known procedures. Results This patient has no known results.
[2021-06-05 14:01] LABS: Urine Blood Negative (Negative); Urine Glucose Negative (Negative); Urine Protein Negative (Negative)
[2021-06-05 14:29] LABS: Urine Bacteria <20 /HPF (<20); Urine RBC <5 /HPF (NONE SEEN)
[2021-06-05 15:01] LABS: Absolute Lymphocytes (CBC) 1.8 K/uL (0.7-4.9); Hematocrit 42.8 % (36.0-45.0); Lymphocytes % 20.7 % (15.3-44.8); MPV 8.4 fL (7.6-11.3); RBC Red Blood Cell Count 4.66 M/uL (3.86-4.86)
[2021-06-05 15:16] LABS: Albumin 3.5 g/dL (3.4-5.0); Bilirubin Direct 0.1 mg/dL (0-0.2); Bilirubin Total 0.5 mg/dL (0.2-1.0); Potassium 4.5 mmol/L (3.5-5.1)
--- NOTE | 2021-06-05 15:46 | RAD REPORT ---
EXAM DESCRIPTION: CTAbdomen Pelvis W Contrast - 06/05/2021 3:29 pm CLINICAL HISTORY: Abdominal pain. back pain;Abd pain COMPARISON: Abdomen Pelvis W Contrast dated 07/22/2015; CT ABD PELVIS W CONTRAST dated 08/24/2012 TECHNIQUE: Biphasic CT imaging of the abdomen and pelvis was performed with 100 ml non-ionic IV cont rast. All CT scans are performed using dose optimization technique as appropriate and may include automated exposure control or mA/KV adjustment according to patient size. FINDINGS: The lung bases are clear.Small hiatal hernia. Cholecystectomy clips. The liver, spleen, pancreas, adrenal glands and kidneys are within normal limits. No bowel obstruction, free air, free fluid or abscess. The appendix is normal. No evidence of signi ficant lymphadenopathy. No suspicious bony findings. IMPRESSION: No acute intra-abdominal or pelvic finding.
--- NOTE | 2021-06-05 16:15 | EDPHYS ---
Physician Documentation [facility] Name: Emily Amaral Age: 50 yrs Sex: Female : 1970 Arrival Date: 06/05/2021 Time: 13:08 Bed 14 Private MD: Surya Salcedo T ED Physician Richmond Gray HPI: 06/05 14:54 This 50 yrs old Female presents to ER via Ambulatory with complaints of Back Pain, rn abdominal pain. 14:55 The patient presents with abdominal pain in the lower abdomen. rn 14:55 Onset: The symptoms/episode began/occurred yesterday. The symptoms radiate to right rn back. Associated signs and symptoms: Pertinent positives: dysuria, Pertinent negatives: blood in stools, chest pain, constipation, diarrhea, fever. The symptoms are described as achy, crampy. Modifying factors: The symptoms are alleviated by nothing, the symptoms are aggravated by nothing. Severity of pain: At its worst the pain was moderate in the emergency department the pain is unchanged. The patient has experienced similar episodes in the past. The patient has not recently seen a physician. Reports right lower back pain and upper abd fullness. Feels like has UTI. Reports dysuria and increased urinary frequency. NO fever. Feels different from previous kidney stones.. Historical: - Allergies: 13:33 Demerol; ll1 - PMHx: 13:33 cervical cancer; Endometrosis; Pancreatitis; ll1 - PSHx: 13:33 Cholecystectomy; hysterectomy; oopherectomy; ll1 - Immunization history:: Client reports having NOT received the Covid vaccine. Flu vaccine status is unknown. - Social history:: Smoking status: Patient denies any tobacco usage or history of. - Family history:: not pertinent. - Hospitalizations: : No recent hospitalization is reported. ROS: 14:55 Constitutional: Negative for fever, chills, and weight loss, Eyes: Negative for injury, rn pain, redness, and discharge, Neck: Negative for injury, pain, and swelling, Cardiovascular: Negative for chest pain, palpitations, and edema, Respiratory: Negative for shortness of breath, cough, wheezing, and pleuritic chest pain, Abdomen/GI: + abd pain Back: + right lower back pain : + dysuria and increased frequency. MS/Extremity: Negative for injury and deformity, Skin: Negative for injury, rash, and discoloration, Neuro: Negative for headache, weakness, numbness, tingling, and seizure. Exam: 14:55 Constitutional: This is a well developed, well nourished patient who is awake, alert, rn and in no acute distress. Head/Face: Normocephalic, atraumatic. Cardiovascular: Regular 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 No pulse deficits. Respiratory: No increased work of breathing, no retractions or nasal flaring. Abdomen/GI: soft, no focal tenderness or masses, no distension Back: No spinal tenderness. No costovertebral tenderness. Skin: Warm, dry MS/ Extremity: Pulses equal, no cyanosis. Neuro: Awake and alert, GCS 15 Vital Signs: 13:32 BP 139 / 87; Pulse 72; Resp 16; Temp 98.4; Pulse Ox 99% ; Weight 89.81 kg; Height 5 ft. ll1 4 in. (162.56 cm); Pain 5/10; 15:04 BP 116 / 80; Pulse 69; Resp 15; Pulse Ox 100% ; vg1 16:04 BP 120 / 84; Pulse 68; Resp 16; Pulse Ox 100% ; vg1 13:32 Body Mass Index 33.99 (89.81 kg, 162.56 cm) ll1 MDM: 13:41 Patient medically screened. rn 16:12 Differential diagnosis: appendicitis, bowel obstruction, diverticulitis, Endometriosis, rn non-specific abd pain, Pyelonephritis, Ureterolithiasis, urinary tract infection. Data reviewed: vital signs, nurses notes, old medical records, lab test result(s), radiologic studies, CT scan, and as a result, I will discharge patient. Counseling: I had a detailed discussion with the patient and/or guardian regarding: the historical points, exam findings, and any diagnostic results supporting the discharge/admit diagnosis, lab results, radiology results, the need for outpatient follow up, to return to the emergency department if symptoms worsen or persist or if there are any questions or concerns that arise at home. Response to treatment: the patient's symptoms have mildly improved after treatment, and as a result, I will discharge patient. Special discussion: I discussed with the patient/guardian in detail that at this point there is no indication for admission to the hospital. It is understood, however, that if the symptoms persist or worsen the patient needs to return immediately for re-evaluation. ED course: NO acute findings on CT abdomen/pelvis, bloodwork, or urine. Will dc home with return precautions.. 06/05 13:47 Order name: Urine Microscopic Only; Complete Time: 15:24 rn 06/05 14:00 Order name: Urine Dipstick-Ancillary; Complete Time: 14:23 EDMS 06/05 14:24 Order name: Basic Metabolic Panel rn 06/05 14:24 Order name: CBC with Diff rn 06/05 14:24 Order name: Hepatic Function; Complete Time: 15:24 rn 06/05 14:24 Order name: Lipase; Complete Time: 15:24 rn 06/05 13:47 Order name: Urine Dipstick-Ancillary (obtain specimen); Complete Time: 14:09 rn 06/05 14:24 Order name: IV Saline Lock; Complete Time: 14:44 rn 06/05 14:24 Order name: Labs collected and sent; Complete Time: 14:45 rn 06/05 14:24 Order name: CT Abd/Pelvis - IV Contrast Only; Complete Time: 16:00 rn 06/05 14:24 Order name: Basic Metabolic Panel; Complete Time: 15:24 EDMS 06/05 14:24 Order name: CBC with Automated Diff EDMS Administered Medications: No medications were administered Disposition Summary: 06/05/21 16:15 Discharge Ordered Location: Home rn Problem: new rn Symptoms: have improved rn Condition: Stable rn Diagnosis - Abdominal pain, unspecified rn - Low back pain rn Followup: rn - With: Private Physician - When: As needed - Reason: Recheck today's complaints, Re-evaluation by your physician Discharge Instructions: - Discharge Summary Sheet rn - Abdominal Pain, Adult rn - Acute Back Pain, Adult rn Forms: - Medication Reconciliation Form rn - Thank You Letter rn - Antibiotic rn behavioral health - Prescription Opioid Use rn Prescriptions: - Cyclobenzaprine 10 mg Oral Tablet - take 1 tablet by ORAL route every 8 hours As needed; 15 tablet; Refills: 0, rn Product Selection Permitted Signatures: Dispatcher [employer] Richmond Doll MD MD rn Lewis, Lynsay, RN RN ll1
--- NOTE | 2021-06-05 16:15 | ER ---
Nurse's Notes [facility] Name: Emily Amaral Age: 50 yrs Sex: Female : 1970 Arrival Date: 06/05/2021 Time: 13:08 Bed 14 Private MD: Surya Salcedo T Diagnosis: Abdominal pain, unspecified;Low back pain Presentation: 06/05 13:32 Chief complaint: Patient states: Abd pain since Saturday. R lower back pain for 1 day. ll1 Urinary frequency noted, but no burning. No known fever. Coronavirus screen: Vaccine status: Patient reports being unvaccinated. Client denies travel out of the [place] in the last 14 days. At this time, the client does not indicate any symptoms associated with coronavirus-19. Ebola Screen: Patient denies travel to an Ebola-affected area in the 21 days before illness onset. Initial Sepsis Screen: Does the patient meet any 2 criteria? No. Patient's initial sepsis screen is negative. Does the patient have a suspected source of infection? Yes: Dysuria/Frequency/Urgency/UTI. Risk Assessment: Do you want to hurt yourself or someone else? Patient reports no desire to harm self or others. Onset of symptoms was June 02, 2021. 13:32 Method Of Arrival: Ambulatory ll1 13:32 Acuity: PRIYA 3 ll1 Historical: - Allergies: 13:33 Demerol; ll1 - PMHx: 13:33 cervical cancer; Endometrosis; Pancreatitis; ll1 - PSHx: 13:33 Cholecystectomy; hysterectomy; oopherectomy; ll1 - Immunization history:: Client reports having NOT received the Covid vaccine. Flu vaccine status is unknown. - Social history:: Smoking status: Patient denies any tobacco usage or history of. - Family history:: not pertinent. - Hospitalizations: : No recent hospitalization is reported. Screenin:04 Abuse screen: Denies threats or abuse. Nutritional screening: No deficits noted. vg1 Tuberculosis screening: No symptoms or risk factors identified. Fall Risk No fall in past 12 months (0 pts). No secondary diagnosis (0 pts). No IV (0 pts). Ambulatory Aid- None/Bed Rest/Nurse Assist (0 pts). Gait- Normal/Bed Rest/Wheelchair (0 pts) Mental Status- Oriented to own ability (0 pts). Total Tristan Fall Scale indicates No Risk (0-24 pts). Assessment: 14:04 General: Appears in no apparent distress. comfortable, Behavior is calm, cooperative. vg1 Pain: Complains of pain in posterior aspect of right lateral abdomen, right upper quadrant and left upper quadrant Pain currently is 6 out of 10 on a pain scale. Neuro: Level of Consciousness is awake, alert, obeys commands, Oriented to person, place, time, situation. Cardiovascular: Patient's skin is warm and dry. Respiratory: Airway is patent Respiratory effort is even, unlabored. GI: Patient currently denies diarrhea, nausea, vomiting. : Denies burning with urination, urinary frequency. EENT: No signs and/or symptoms were reported regarding the EENT system. Derm: Skin is intact, is healthy with good turgor. Musculoskeletal: Circulation, motion, and sensation intact. 15:03 Reassessment: Patient appears in no apparent distress at this time. No changes from vg1 previously documented assessment. Patient and/or family updated on plan of care and expected duration. Pain level reassessed. Patient is alert, oriented x 3, equal unlabored respirations, skin warm/dry/pink. 16:05 Reassessment: Patient appears in no apparent distress at this time. No changes from vg1 previously documented assessment. Patient and/or family updated on plan of care and expected duration. Pain level reassessed. Patient is alert, oriented x 3, equal unlabored respirations, skin warm/dry/pink. Vital Signs: 13:32 BP 139 / 87; Pulse 72; Resp 16; Temp 98.4; Pulse Ox 99% ; Weight 89.81 kg; Height 5 ft. ll1 4 in. (162.56 cm); Pain 5/10; 15:04 BP 116 / 80; Pulse 69; Resp 15; Pulse Ox 100% ; vg1 16:04 BP 120 / 84; Pulse 68; Resp 16; Pulse Ox 100% ; vg1 13:32 Body Mass Index 33.99 (89.81 kg, 162.56 cm) ll1 ED Course: 13:08 Patient arrived in ED. am2 13:08 Surya Salcedo MD is Private Physician. am2 13:33 Triage completed. ll1 13:34 Arm band placed on. ll1 13:41 Richmond Gray MD is Attending Physician. rn 14:00 Nesha Kaur, RN is Primary Nurse. vg1 14:04 Patient has correct armband on for positive identification. Bed in low position. Call vg1 light in reach. Side rails up X 1. 14:04 No provider procedures requiring assistance completed. vg1 14:45 Initial lab(s) drawn, by me, sent to lab. Inserted saline lock: 20 gauge in left vg1 antecubital area, using aseptic technique. Blood collected. 15:29 CT Abd/Pelvis - IV Contrast Only In Process Unspecified. EDMS 16:47 IV discontinued, intact, bleeding controlled, No redness/swelling at site. Pressure vg1 dressing applied. Administered Medications: No medications were administered Outcome: 16:15 Discharge ordered by MD. rn 16:47 Discharged to home ambulatory, with family. vg1 16:47 Condition: good 16:47 Discharge instructions given to patient, Instructed on discharge instructions, follow up and referral plans. Demonstrated understanding of instructions, follow-up care, medications, Prescriptions given X 1. 16:47 Patient left the ED. vg1 Signatures: Dispatcher [employer] EDMS Richmond Gray MD MD rn Moreno, Amanda am2 Garcia, Victoria, RN RN vg1 Edison Santizo RN RN ll1
[2021-06-05 17:27] LABS: Anisocytosis 1+; Blood Morphology Comment NOTED (NOT SEEN); Platelet Estimate ADEQ; Poikilocytosis 1+
[2021-06-05 18:51] VITALS: O2SAT 100
[2021-06-05 18:52] VITALS: BP 120/84
[2021-06-05 18:56] VITALS: TEMP 98.4
== END 2021-06-05 16:47 | disposition home or self-care (01) ==
LOC: ER 13:07
DX: M54.50 Low back pain, unspecified (principal); R10.9 Unspecified abdominal pain; Z88.5 Allergy status to narcotic agent
CPT/HCPCS: 85025; 80048; 36415; 80076; 83690; 74177; 99284; Q9967; 81003; 81015

== ENCOUNTER 2022-02-24 14:00 | Emergency (ER) | payer BC ==
--- OUTSIDE RECORDS SUMMARY | 2022-02-24 14:05 | XMS REPORT | Continuity of Care Document ---
:1970 Author Organization [facility] t Address [address] [place] [address] Dr. Pelletier. [address] [place] [id number] Care Team Providers Name Role Phone Unavailable Unavailable Unavailable Problems This patient has no known problems. Allergies, Adverse Reactions, Alerts This patient has no known allergies or adverse reactions. Medications This patient has no known medications. Procedures This patient has no known procedures. Results This patient has no known results.
[2022-02-24] MEDS ORDERED: HYDROCODONE/APAP 10/325 TAB ONE (14:22)
[2022-02-24] MEDS ORDERED: KETOROLAC 30 MG/ML INJ ONE (14:23)
--- NOTE | 2022-02-24 15:11 | RAD REPORT ---
EXAM DESCRIPTION: RAD - Sacrum And Coccyx - 02/24/2022 2:57 pm CLINICAL HISTORY: PAIN COMPARISON: Lumbar Spine 3 Views dated 02/24/2022 FINDINGS/IMPRESSION: No acute fracture of the sacrum or coccyx is identified. Mild endplate spurring in the lumbar spine. Phleboliths.
--- NOTE | 2022-02-24 15:12 | RAD REPORT ---
EXAM DESCRIPTION: RAD - Lumbar Spine 3 Views - 02/24/2022 2:57 pm CLINICAL HISTORY: PAIN COMPARISON: No comparisons FINDINGS: No acute fracture. No malalignment. Mild endplate spurring at L2-3, L3-4, and L4-5. IMPRESSION: No acute osseous abnormality involving the lumbar spine.
--- NOTE | 2022-02-24 15:29 | EDPHYS ---
Physician Documentation [facility] Name: Emily Amaral Age: 51 yrs Sex: Female : 1970 Arrival Date: 02/24/2022 Time: 14:01 Bed 14 Private MD: ED Physician Bharathi Giles HPI: 02/24 15:40 This 51 yrs old Female presents to ER via Ambulatory with complaints of Back Pain. kb 15:40 The patient presents with pain that is acute. The symptoms are located in the low back. kb Onset: The symptoms/episode began/occurred last night. The pain does not radiate. Associated signs and symptoms: The patient has no apparent associated signs or symptoms. The problem was sustained during a fall, while dancing. Modifying factors: The patient symptoms are alleviated by nothing, the patient symptoms are aggravated by any movement. Severity of symptoms: At their worst the symptoms were moderate, in the emergency department the symptoms are unchanged. The patient has not experienced similar symptoms in the past. The patient has not recently seen a physician. Pt reports he fell onto buttocks while dancing last night. c/o low back pain. 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 Last tetanus immunization: up to date. - Social history:: Smoking status: Patient denies any tobacco usage or history of. ROS: 15:39 Constitutional: Negative for fever, chills, and weight loss. kb 15:39 Back: Positive for pain at rest, pain with movement, of the low back area. 15:39 All other systems are negative. Exam: 15:39 Constitutional: This is a well developed, well nourished patient who is awake, alert, kb and in no acute distress. Head/Face: Normocephalic, atraumatic. ENT: Moist Mucous membranes Cardiovascular: Regular rate and rhythm with a normal S1 and S2. No gallops, murmurs, or rubs. No pulse deficits. Respiratory: Respirations even and unlabored. No increased work of breathing. Talking in full sentences Abdomen/GI: Soft, non-tender. No distention Skin: Warm, dry with normal turgor. Normal color. MS/ Extremity: Pulses equal, no cyanosis. Neurovascular intact. Full, normal range of motion. Neuro: Awake and alert, GCS 15, oriented to person, place, time, and situation. Moves all extremities. Normal gait. Psych: Awake, alert, with orientation to person, place and time. Behavior, mood, and affect are within normal limits. 15:39 Back: pain, that is moderate, of the lumbar area and sacrum, ROM is painful, normal spinal alignment noted. Vital Signs: 14:04 BP 135 / 86; Pulse 87; Resp 20; Temp 98; Pulse Ox 98% ; Weight 90.72 kg; Height 5 ft. 5 kb3 in. (165.10 cm); Pain 8/10; 15:00 BP 126 / 81; Pulse 72; Resp 18; Pulse Ox 96% on R/A; em6 14:04 Body Mass Index 33.28 (90.72 kg, 165.10 cm) kb3 MDM: 14:10 Patient medically screened. kb 15:31 Data reviewed: vital signs, nurses notes. Data interpreted: Pulse oximetry: on room air kb is 98 %. Interpretation: normal. Counseling: I had a detailed discussion with the patient and/or guardian regarding: the historical points, exam findings, and any diagnostic results supporting the discharge/admit diagnosis, radiology results, the need for outpatient follow up, a family practitioner, to return to the emergency department if symptoms worsen or persist or if there are any questions or concerns that arise at home. 02/24 14:13 Order name: Sacrum And Coccyx XRAY; Complete Time: 15:14 kb 02/24 14:13 Order name: Lumbar Spine (3 Views) XRAY; Complete Time: 15:14 kb Administered Medications: 14:50 Drug: [place] (HYDROcodone-acetaminophen) 10 mg-325 mg 1 tabs Route: PO; em6 15:31 Follow up: Response: No adverse reaction em6 14:50 Drug: Ketorolac 30 mg Route: IM; Site: right deltoid; em6 15:31 Follow up: Response: No adverse reaction em6 Disposition Summary: 02/24/22 15:28 Discharge Ordered Location: Home kb Condition: Stable kb Diagnosis - Encounter for concern of postop infection kb - Low back pain kb - Fall on same level from slipping, tripping and stumbling without subsequent kb striking against object Followup: kb - With: Emergency Department - When: As needed - Reason: Worsening of condition Followup: kb - With: Private Physician - When: 2 - 3 days - Reason: Recheck today's complaints, Continuance of care, Re-evaluation by your physician Discharge Instructions: - Discharge Summary Sheet kb - Musculoskeletal Pain kb - Incision Care, Adult, [id number] kb Forms: - Medication Reconciliation Form kb - Thank You Letter kb - Antibiotic Education kb - Prescription Opioid Use kb Prescriptions: - Cyclobenzaprine 10 mg Oral Tablet - take 1 tablet by ORAL route every 8 hours As needed; 21 tablet; Refills: 0, kb Product Selection Permitted - Diclofenac Sodium 75 mg Oral tablet,delayed release (DR/EC) - take 1 tablet by ORAL route 2 times per day As needed; 30 tablet; Refills: 0, kb Product Selection Permitted Signatures: Dispatcher [employer] EDJennyfer William, PIPELINE SUPERINTENDENT DIVISION-C JOE-Daniela Arredondo, RN RN em6 Chana Leonardo, RN RN kb3 Corrections: (The following items were deleted from the chart) 15:29 15:28 Nausea kb kb
--- NOTE | 2022-02-24 15:29 | ER ---
Nurse's Notes [facility] Name: Emily Amaral Age: 51 yrs Sex: Female : 1970 Arrival Date: 02/24/2022 Time: 14:01 Bed 14 Private MD: Diagnosis: Low back pain;Fall on same level from slipping, tripping and stumbling without subsequent striking against object Presentation: 02/24 14:04 Chief complaint: Patient states: Pt reports she slipped and fell while dancing last kb3 night, landing on her buttocks. Reports spasms across lower back with radiation down both legs. Coronavirus screen: Vaccine status: Patient reports being unvaccinated. Client denies travel out of the [place] in the last 14 days. Ebola Screen: Patient negative for fever greater than or equal to 101.5 degrees Fahrenheit, and additional compatible Ebola Virus Disease symptoms Patient denies exposure to infectious person. Patient denies travel to an Ebola-affected area in the 21 days before illness onset. Initial Sepsis Screen: Does the patient meet any 2 criteria? No. Patient's initial sepsis screen is negative. Does the patient have a suspected source of infection? No. Patient's initial sepsis screen is negative. Risk Assessment: Do you want to hurt yourself or someone else? Patient reports no desire to harm self or others. Onset of symptoms was February 23, 2022 at 23:00. 14:04 Method Of Arrival: Ambulatory kb3 14:04 Acuity: PRIYA 4 kb3 Triage Assessment: 14:06 General: Appears in no apparent distress. Behavior is calm, cooperative. Pain: kb3 Complains of pain in lumbar area, left low back and right low back Pain radiates to right leg and left hamstring Pain currently is 8 out of 10 on a pain scale. Musculoskeletal: Capillary refill < 3 seconds. 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 Last tetanus immunization: up to date. - Social history:: Smoking status: Patient denies any tobacco usage or history of. Screenin:20 Abuse screen: Denies threats or abuse. Nutritional screening: No deficits noted. em6 Tuberculosis screening: No symptoms or risk factors identified. Fall Risk Fall in past 12 months (25 points). Total Tristan Fall Scale indicates Low Risk Score (25-44 pts). Fall prevention measures have been instituted. Side Rails Up X 2 Placed close to Nursing Station Frequent Obs/Assesments occuring Family Present and informed to notify staff if they need to leave bedside As available Patient and Family Educated on Fall Prevention Program and strategies. Assessment: 14:20 General: Appears uncomfortable, Behavior is cooperative. Pain: Complains of pain in em6 back and right low back and left low back and lumbar area Pain radiates to left leg and right leg Pain currently is 10 out of 10 on a pain scale. Quality of pain is described as shooting, Pain began 1 day ago. Neuro: Level of Consciousness is awake, alert, obeys commands, Oriented to person, place, time, situation. Cardiovascular: Patient's skin is warm and dry. Respiratory: Airway is patent Respiratory effort is even, unlabored, Respiratory pattern is regular, symmetrical, Breath sounds are clear bilaterally. GI: No signs and/or symptoms were reported involving the gastrointestinal system. : No signs and/or symptoms were reported regarding the genitourinary system. EENT: No signs and/or symptoms were reported regarding the EENT system. Derm: No signs and/or symptoms reported regarding the dermatologic system. Musculoskeletal: Circulation, motion, and sensation intact. 15:20 Reassessment: Patient and/or family updated on plan of care and expected duration. Pain em6 level reassessed. Patient is alert, oriented x 3, equal unlabored respirations, skin warm/dry/pink. Patient states symptoms have improved. Vital Signs: 14:04 BP 135 / 86; Pulse 87; Resp 20; Temp 98; Pulse Ox 98% ; Weight 90.72 kg; Height 5 ft. 5 kb3 in. (165.10 cm); Pain 8/10; 15:00 BP 126 / 81; Pulse 72; Resp 18; Pulse Ox 96% on R/A; em6 14:04 Body Mass Index 33.28 (90.72 kg, 165.10 cm) kb3 ED Course: 14:01 Patient arrived in ED. as 14:06 Triage completed. kb3 14:06 Arm band placed on right wrist. kb3 14:10 Jennyfer Miller [facility]-C [facility] kb 14:10 Bharathi Giles MD is Attending Physician. kb 14:19 Daniela Esteban, RN is Primary Nurse. em6 14:20 Placed in gown. Bed in low position. Call light in reach. Side rails up X2. Pulse ox em6 on. NIBP on. Warm blanket given. 14:58 Sacrum And Coccyx XRAY In Process Unspecified. EDMS 14:59 Lumbar Spine (3 Views) XRAY In Process Unspecified. EDMS 15:46 No provider procedures requiring assistance completed. Patient did not have IV access em6 during this emergency room visit. Administered Medications: 14:50 Drug: [place] (HYDROcodone-acetaminophen) 10 mg-325 mg 1 tabs Route: PO; em6 15:31 Follow up: Response: No adverse reaction em6 14:50 Drug: Ketorolac 30 mg Route: IM; Site: right deltoid; em6 15:31 Follow up: Response: No adverse reaction em6 Medication: 15:31 VIS not applicable for this client. em6 Outcome: 15:28 Discharge ordered by MD. kb 15:47 Discharged to home via wheelchair. em6 15:47 Condition: stable 15:47 Discharge instructions given to patient, family, Instructed on discharge instructions, follow up and referral plans. medication usage, Demonstrated understanding of instructions, follow-up care, medications, Prescriptions given X 2. 15:47 Patient left the ED. em6 Signatures: Dispatcher [employer] EDMS Jennyfer Miller FNP-C FNP-Mickie Arredondo as Daniela Esteban, RN RN em6 Chana Leonardo RN RN kb3
[2022-02-24 15:57] VITALS: TEMP 98
[2022-02-24 16:02] VITALS: BP 126/81; O2SAT 96
== END 2022-02-24 15:47 | disposition home or self-care (01) ==
LOC: ER 14:00
DX: M54.50 Low back pain, unspecified (principal); W01.0XXA Fall on same level from slipping, tripping and stumbling without subsequent striking against object, initial encounter; Y93.41 Activity, dancing
CPT/HCPCS: 72100; 72220; 96372; 99284

== ENCOUNTER 2022-10-14 00:58 | Emergency (ER) | payer BC ==
--- OUTSIDE RECORDS SUMMARY | 2022-10-14 01:00 | XMS REPORT | Continuity of Care Document ---
:1970 Author Organization [facility] t Address [address] [place] [id number] Care Team Providers Name Role Phone Unavailable Unavailable Unavailable Problems This patient has no known problems. Allergies, Adverse Reactions, Alerts This patient has no known allergies or adverse reactions. Medications This patient has no known medications. Procedures This patient has no known procedures. Results This patient has no known results.
[2022-10-14] MEDS ORDERED: IBUPROFEN 200 MG TAB PO ONE (01:57)
[2022-10-14] MEDS ORDERED: IBUPROFEN 400 MG TAB ONE (01:57)
--- NOTE | 2022-10-14 02:52 | EDPHYS ---
Physician Documentation [facility] Name: Emily Amaral Age: 52 yrs Sex: Female : 1970 Arrival Date: 10/14/2022 Time: 00:58 Bed 6 Private MD: ED Physician Long Brewer HPI: 10/14 01:36 This 52 yrs old Female presents to ER via Wheelchair with complaints of Ankle Injury. ms3 01:36 52-year-old female with past medical history of cervical cancer, endometriosis, ms3 pancreatitis presents for twisting her right ankle at 10 AM yesterday. Patient states she is having right medial ankle pain and right lateral foot pain. Patient rates her pain a 6/10 and states the pain is worse with walking. Patient denies alleviating factors. Patient has not taken medication for her pain.. Historical: - Allergies: 01:22 Demerol; pf1 - PMHx: 01:22 cervical cancer; Endometrosis; Pancreatitis; pf1 - PSHx: 01:22 Cholecystectomy; hysterectomy; oopherectomy; pf1 - Immunization history:: Adult Immunizations up to date, Client reports having NOT received the Covid vaccine. Last tetanus immunization: < 5 years ago Flu vaccine is not up to date. - Social history:: Smoking status: Patient denies any tobacco usage or history of. Patient uses alcohol, only on a social basis. Patient/guardian denies using street drugs. ROS: 01:36 Constitutional: Negative for fever, and chills. Neck: Negative for injury, pain, and ms3 swelling, Cardiovascular: Negative for chest pain, and palpitations. Respiratory: Negative for shortness of breath, cough, wheezing, and pleuritic chest pain, Abdomen/GI: Negative for abdominal pain, nausea, vomiting, diarrhea, and constipation. 01:36 MS/extremity: Positive for pain, of the Right foot and ankle. 01:36 All other systems are negative. Exam: 01:36 Constitutional: This is a well developed, well nourished patient who is awake, alert, ms3 and in no acute distress. Head/Face: Normocephalic, atraumatic. Neck: Trachea midline, no cervical lymphadenopathy. Supple, full range of motion without nuchal rigidity, or vertebral point tenderness. No Meningismus. Chest/axilla: Normal chest wall appearance and motion. Nontender with no deformity. Cardiovascular: Regular rate and rhythm with a normal S1 and S2. No gallops, murmurs, or rubs. Normal PMI, no JVD. No pulse deficits. Respiratory: Lungs have equal breath sounds bilaterally, clear to auscultation and percussion. No rales, rhonchi or wheezes noted. No increased work of breathing, no retractions or nasal flaring. Abdomen/GI: Soft, non-tender, with normal bowel sounds. No distension or tympany. No guarding or rebound. No evidence of tenderness throughout. 01:36 Musculoskeletal/extremity: Extremities: noted in the Right ankle: pain, tenderness, noted in the Right foot: pain, tenderness. Vital Signs: 01:20 BP 133 / 86; Pulse 79; Resp 18; Temp 97.7; Pulse Ox 98% on R/A; Weight 93.89 kg; Height pf1 5 ft. 4 in. ; Pain 6/10; 03:10 BP 126 / 88; Pulse 72; Resp 17 S; Pulse Ox 99% on R/A; lg3 01:20 Body Mass Index 35.53 (93.89 kg, 162.56 cm) pf1 01:20 Pain Scale: Adult pf1 MDM: 01:20 Patient medically screened. ms3 01:36 Differential diagnosis: fracture, sprain. ms3 10/14 01:35 Order name: Ankle Right 3 View XRAY ms3 10/14 01:35 Order name: Foot Right 3 View XRAY ms3 10/14 02:51 Order name: Aircast Ankle Splint; Complete Time: 02:58 ms3 10/14 02:51 Order name: Crutches; Complete Time: 02:58 ms3 Administered Medications: 01:53 Drug: Ibuprofen PO 600 mg Route: PO; lg3 02:58 Follow up: Response: No adverse reaction lg3 Disposition Summary: 10/14/22 02:51 Discharge Ordered Location: Home ms3 Condition: Stable ms3 Diagnosis - Pain in ankle and joints of foot ms3 Followup: ms3 - With: Rj Cuellar MD - When: 2 - 3 days - Reason: Recheck today's complaints Discharge Instructions: - Discharge Summary Sheet ms3 - Ankle Pain ms3 - Foot Pain ms3 Forms: - Medication Reconciliation Form ms3 - Thank You Letter ms3 - Antibiotic Education ms3 - Prescription Opioid Use ms3 Signatures: Dispatcher [employer] Rachel Jeffries, RN RN lg3 Long Brewer DO DO ms3 Mariaelena Mclean, ANNY RN pf1
--- NOTE | 2022-10-14 02:52 | ER ---
Nurse's Notes [facility] Name: Emily Amaral Age: 52 yrs Sex: Female : 1970 Arrival Date: 10/14/2022 Time: 00:58 Bed 6 Private MD: Diagnosis: Pain in ankle and joints of foot Presentation: 10/14 01:20 Chief complaint: Patient states: right ankle and foot pain of 6,onset 1000 this AM. pf1 Patient stated twisted right ankle while raking grass. Patient denies fall. Coronavirus screen: Vaccine status: Patient reports being unvaccinated. Client denies travel out of the [place] in the last 14 days. At this time, the client does not indicate any symptoms associated with coronavirus-19. Ebola Screen: Patient negative for fever greater than or equal to 101.5 degrees Fahrenheit, and additional compatible Ebola Virus Disease symptoms. Initial Sepsis Screen: Does the patient meet any 2 criteria? No. Patient's initial sepsis screen is negative. Does the patient have a suspected source of infection? No. Patient's initial sepsis screen is negative. Risk Assessment: Do you want to hurt yourself or someone else? Patient reports no desire to harm self or others. Onset of symptoms was October 13, 2022 at 10:00. 01:20 Method Of Arrival: Wheelchair pf1 01:20 Acuity: PRIYA 4 pf1 Historical: - Allergies: 01:22 Demerol; pf1 - PMHx: 01:22 cervical cancer; Endometrosis; Pancreatitis; pf1 - PSHx: 01:22 Cholecystectomy; hysterectomy; oopherectomy; pf1 - Immunization history:: Adult Immunizations up to date, Client reports having NOT received the Covid vaccine. Last tetanus immunization: < 5 years ago Flu vaccine is not up to date. - Social history:: Smoking status: Patient denies any tobacco usage or history of. Patient uses alcohol, only on a social basis. Patient/guardian denies using street drugs. Screenin: [facility] ED Fall Risk Assessment (Adult) History of falling in the last 3 months, pf1 including since admission No falls in past 3 months (0 pts) Confusion or Disorientation No (0 pts) Intoxicated or Sedated No (0 pts) Impaired Gait No (0 pts) Mobility Assist Device Used No (0 pt) Altered Elimination No (0 pt) Score/Fall Risk Level 0 - 2 = Low Risk Oriented to surroundings, Maintained a safe environment, Educated pt \T\ family on fall prevention, incl call for assistance when getting out of bed, Assessed \T\ reinforced patient's understanding of fall precautions, Provided non-skid footwear, Hourly rounding (assess needs \T\ fall precautionary measures) done, Used ambulatory aids as needed (educated on \T\ assisted with), Used gait belt as appropriate. Abuse screen: Denies threats or abuse. Nutritional screening: No deficits noted. Tuberculosis screening: No symptoms or risk factors identified. Assessment: 01:24 General: Appears in no apparent distress. comfortable, well groomed, well developed, pf1 Behavior is calm, cooperative, appropriate for age, quiet. Pain: Complains of pain in right foot and right ankle Pain currently is 6 out of 10 on a pain scale. Neuro: No deficits noted. Level of Consciousness is awake, alert, obeys commands, Oriented to person, place, time, situation. Cardiovascular: No deficits noted. Capillary refill < 3 seconds Patient's skin is warm and dry. Respiratory: No deficits noted. Airway is patent Respiratory effort is even, unlabored, Respiratory pattern is regular, symmetrical. GI: No deficits noted. No signs and/or symptoms were reported involving the gastrointestinal system. : No deficits noted. No signs and/or symptoms were reported regarding the genitourinary system. EENT: No deficits noted. No signs and/or symptoms were reported regarding the EENT system. Derm: No deficits noted. No signs and/or symptoms reported regarding the dermatologic system. Musculoskeletal: Reports pain in right ankle and right foot since 1000 this AM. Pain is 6 out of 10 on a pain scale. 03:10 Reassessment: Patient appears in no apparent distress at this time. No changes from lg3 previously documented assessment. Patient and/or family updated on plan of care and expected duration. Pain level reassessed. Patient is alert, oriented x 3, equal unlabored respirations, skin warm/dry/pink. Vital Signs: 01:20 BP 133 / 86; Pulse 79; Resp 18; Temp 97.7; Pulse Ox 98% on R/A; Weight 93.89 kg; Height pf1 5 ft. 4 in. ; Pain 6/10; 03:10 BP 126 / 88; Pulse 72; Resp 17 S; Pulse Ox 99% on R/A; lg3 01:20 Body Mass Index 35.53 (93.89 kg, 162.56 cm) pf1 01:20 Pain Scale: Adult pf1 ED Course: 01:02 Patient arrived in ED. jj6 01:03 Long Brewer DO is Attending Physician. ms3 01:22 Triage completed. pf1 01:25 Patient has correct armband on for positive identification. pf1 01:47 Rachel Espinoza, RN is Primary Nurse. lg3 02:07 Ankle Right 3 View XRAY In Process Unspecified. EDMS 02:07 Foot Right 3 View XRAY In Process Unspecified. EDMS 02:51 Rj Cuellar MD is Referral Physician. ms3 03:10 No provider procedures requiring assistance completed. Patient did not have IV access lg3 during this emergency room visit. 03:11 Arm band placed on right wrist. lg3 Administered Medications: 01:53 Drug: Ibuprofen PO 600 mg Route: PO; lg3 02:58 Follow up: Response: No adverse reaction lg3 Medication: 03:10 VIS not applicable for this client. lg3 Outcome: 02:51 Discharge ordered by MD. ms3 03:10 Discharged to home ambulatory, with crutches. lg3 03:10 Condition: stable 03:10 Discharge instructions given to patient, Instructed on discharge instructions, follow up and referral plans. Demonstrated understanding of instructions, follow-up care, crutch walking. 03:11 Patient left the ED. lg3 Signatures: Dispatcher [employer] EDAR Rachel Espinoza RN RN lg3 Long Brewer DO DO ms3 Racquel Persaud jj6 Mariaelena Mclean RN RN pf1 Corrections: (The following items were deleted from the chart) 01:24 01:20 Chief complaint: Patient states: right ankle pain of 6,onset 1000 this AM. pf1 Patient stated twisted right ankle while raking grass. Patient denies fall. pf1
[2022-10-14 03:27] VITALS: TEMP 97.7
[2022-10-14 03:29] VITALS: BP 126/88; O2SAT 99
--- NOTE | 2022-10-15 11:51 | RAD REPORT ---
EXAM DESCRIPTION: Ankle Right 3 View 10/14/2022 2:38 AM CDT CLINICAL HISTORY: 52 years, Female, PAIN COMPARISON: None. FINDINGS: 3 X-ray views of the right ankle (frontal, lateral and oblique views) were performed. There is no evidence for fracture or dislocation. The ankle mortise is intact. There is no signif icant joint effusion. There are no gross intraosseous lesions. There are spur posterior aspect of t he calcaneus within the site of insertion of the Achilles tendon and plantar fascia tendon. No gross soft tissue abnormality is demonstrated. IMPRESSION: No acute osseous abnormality. Electronically signed by: Perry Madrigal MD 10/14/2022 2:38 AM CDT Due to temporary technical issues with the PACS/Fluency reporting system, reports are being signed by the in house radiologist without review as a courtesy to ensure prompt reporting. The interpreting r adiologist is fully responsible for the content of the report.
--- NOTE | 2022-10-15 11:53 | RAD REPORT ---
EXAM DESCRIPTION: Foot Right 3 View 10/14/2022 2:38 AM CDT CLINICAL HISTORY: 52 years, Female, PAIN COMPARISON: None FINDINGS: 3 X-ray views of the right foot (Frontal, lateral and oblique views) were performed. No acute bony injuries were demonstrated. No gross articular or soft tissue abnormality is identifi ed. There are no gross intraosseous lesions. No periosteal reaction were seen. Spur formation p osterior aspect of the calcaneus at site of insertion of the Achilles tendon and plantaris tendon fas valerie. IMPRESSION: No acute bony injuries were demonstrated. Calcaneal spurs. Electronically signed by: Perry Madrigal MD 10/14/2022 2:39 AM CDT Due to temporary technical issues with the PACS/Fluency reporting system, reports are being signed by the in house radiologist without review as a courtesy to ensure prompt reporting. The interpreting r adiologist is fully responsible for the content of the report.
== END 2022-10-14 03:11 | disposition home or self-care (01) ==
LOC: ER 00:58
DX: M25.571 Pain in right ankle and joints of right foot (principal); Z88.8 Allergy status to other drugs, medicaments and biological substances
CPT/HCPCS: 99284

== ENCOUNTER 2022-10-31 13:02 | Emergency (ER) | payer BC ==
--- OUTSIDE RECORDS SUMMARY | 2022-10-31 13:04 | XMS REPORT | Continuity of Care Document ---
:1970 Author Organization [facility] t Address [address] [place] [id number] Care Team Providers Name Role Phone Unavailable Unavailable Unavailable Problems This patient has no known problems. Allergies, Adverse Reactions, Alerts This patient has no known allergies or adverse reactions. Medications This patient has no known medications. Procedures This patient has no known procedures. Results This patient has no known results.
[2022-10-31] MEDS ORDERED: NA CHLORIDE 0.9% 1,000 ML ONE (13:43)
[2022-10-31] MEDS ORDERED: NA CHLORIDE 0.9% 500 ML ONE (13:43)
[2022-10-31 14:03] LABS: Absolute Lymphocytes (CBC) 2.8 K/uL (0.7-4.9); Hematocrit 41.7 % (36.0-45.0); Lymphocytes % 32.2 % (15.3-44.8); MCV 91.4 fL (80-100); MPV 9.1 fL (7.6-11.3); RBC Red Blood Cell Count 4.56 M/uL (3.86-4.86)
[2022-10-31 14:05] LABS: Specific Gravity 1.023 (1.005-1.030)
[2022-10-31 14:07] LABS: Specific Gravity 1.023 (1.005-1.030); Urine Bacteria <20 /HPF (<20); Urine Bilirubin NEGATIVE (Negative); Urine Blood Negative (Negative); Urine Clarity Clear (Clear); Urine Color Light-Yellow (Yellow); Urine Glucose NEGATIVE (Negative); Urine Mucus Slight /HPF (None Seen); Urine Protein NEGATIVE (Negative); Urine RBC <5 /HPF (None Seen); Urine Urobilinogen Normal (Normal)
[2022-10-31 14:23] LABS: Albumin 3.5 g/dL (3.4-5.0); Bilirubin Direct 0.1 mg/dL (0-0.2); Bilirubin Indirect, Calculated 0.4 mg/dL (0.2-0.8); Bilirubin Total 0.5 mg/dL (0.2-1.0); Potassium 3.3 mEq/L (3.5-5.1); Protein, Total 7.2 g/dL (6.4-8.2)
--- NOTE | 2022-10-31 14:35 | RAD REPORT ---
EXAM DESCRIPTION: RAD - Chest Single View - 10/31/2022 2:24 pm CLINICAL HISTORY: ABD PAIN COMPARISON: CHEST SINGLE VIEW dated 02/28/2014 FINDINGS: Lines: None. Lungs: No evidence of edema or pneumonia. Pleural: No significant pleural effusions or pneumothorax. Cardiac: The heart size is within normal limits. Mediastinum: Within normal limits. Bones: No acute fractures. Other: None IMPRESSION: No acute cardiopulmonary disease.
--- NOTE | 2022-10-31 15:33 | RAD REPORT ---
EXAM DESCRIPTION: CTAbdomen Pelvis W Contrast - 10/31/2022 3:20 pm CLINICAL HISTORY: ABD PAIN COMPARISON: Abdomen Pelvis W Contrast dated 06/05/2021; Abdomen Pelvis W Contrast dated 07/22/2015; CT ABD PELVIS W CONTRAST dated 08/24/2012 TECHNIQUE: CT of the abdomen and pelvis was performed. All CT scans are performed using dose optimization technique as appropriate and may include automated exposure control or mA/KV adjustment according to patient size. FINDINGS: Lower chest: No acute abnormality. Circumferential thickened distal esophagus . Liver: Hepatic steatosis Biliary: No biliary ductal dilatation. Stomach: No significant focal abnormality. Duodenum: No significant focal abnormality. Pancreas: No significant abnormality. Spleen: No significant abnormality. Adrenal: No suspicious lesions. Kidney/ureter: No hydronephrosis. No renal calculi. Retroperitoneum: No retroperitoneal adenopathy. Vascular: No aneurysm. Bowel: No significant focal abnormality. No no evidence appendicitis. Peritoneum: No ascites or free air. Bladder: Grossly unremarkable. Reproductive: No adnexal masses. Hysterectomy Bones: No acute fracture. Other: n/a IMPRESSION: No acute intra-abdominal or pelvic finding.
--- NOTE | 2022-10-31 15:51 | ER ---
Nurse's Notes [facility] Name: Emily Amaral Age: 52 yrs Sex: Female : 1970 Arrival Date: 10/31/2022 Time: 13:02 Bed 13 Private MD: Diagnosis: Epigastric abdominal tenderness;Abdominal pain, unspecified;Hypokalemia Presentation: 10/31 13:23 Chief complaint: Patient states: Upper abdominal pain with N/V and bloating for 2 ll1 weeks. Coronavirus screen: Vaccine status: Patient reports being unvaccinated. Client denies travel out of the [place] in the last 14 days. At this time, the client does not indicate any symptoms associated with coronavirus-19. Ebola Screen: Patient denies travel to an Ebola-affected area in the 21 days before illness onset. Initial Sepsis Screen: Does the patient meet any 2 criteria? No. Patient's initial sepsis screen is negative. Does the patient have a suspected source of infection? Yes: Acute abdominal pain. Risk Assessment: Do you want to hurt yourself or someone else? Patient reports no desire to harm self or others. Onset of symptoms was October 17, 2022. 13:23 Method Of Arrival: Ambulatory ll1 13:23 Acuity: PRIYA 3 ll1 Triage Assessment: 13:24 General: Appears uncomfortable, Behavior is calm, cooperative, appropriate for age. ll1 Pain: Complains of pain in upper abdomen Pain currently is 4 out of 10 on a pain scale. Quality of pain is described as aching, crampy. GI: Reports upper abdominal pain, bloating, nausea, vomiting. Historical: - Allergies: 13:24 Demerol; ll1 - PMHx: 13:24 cervical cancer; Endometrosis; Pancreatitis; ll1 - PSHx: 13:24 Cholecystectomy; hysterectomy; oopherectomy; ll1 - Immunization history:: Client reports having NOT received the Covid vaccine. - Social history:: Smoking status: Patient denies any tobacco usage or history of. - Hospitalizations: : No recent hospitalization is reported. Screenin:00 [facility] ED Fall Risk Assessment (Adult) History of falling in the last 3 months, kc6 including since admission No falls in past 3 months (0 pts) Confusion or Disorientation No (0 pts) Intoxicated or Sedated No (0 pts) Impaired Gait No (0 pts) Mobility Assist Device Used No (0 pt) Altered Elimination No (0 pt) Score/Fall Risk Level 0 - 2 = Low Risk Oriented to surroundings, Maintained a safe environment, Educated pt \T\ family on fall prevention, incl call for assistance when getting out of bed, Assessed \T\ reinforced patient's understanding of fall precautions, Hourly rounding (assess needs \T\ fall precautionary measures) done. Abuse screen: Denies threats or abuse. Denies injuries from another. Nutritional screening: No deficits noted. Tuberculosis screening: No symptoms or risk factors identified. Assessment: 13:30 General: Appears in no apparent distress. comfortable, Behavior is calm, cooperative, kc6 appropriate for age. Pain: Complains of pain in right upper quadrant and left upper quadrant. GI: Abdomen is flat, non-distended, Bowel sounds present X 4 quads. Abd is soft X 4 quads Abdomen is tender to palpation in right upper quadrant and left upper quadrant Reports intolerance of fluids, intolerance of food, nausea, vomiting, Patient currently denies constipation, diarrhea. 14:30 Reassessment: Patient appears in no apparent distress at this time. No changes from kc6 previously documented assessment. Patient and/or family updated on plan of care and expected duration. Pain level reassessed. Patient is alert, oriented x 3, equal unlabored respirations, skin warm/dry/pink. 15:27 Reassessment: Patient appears in no apparent distress at this time. No changes from kc6 previously documented assessment. Patient and/or family updated on plan of care and expected duration. Pain level reassessed. Patient is alert, oriented x 3, equal unlabored respirations, skin warm/dry/pink. Vital Signs: 13:23 BP 142 / 76; Pulse 72; Resp 18; Temp 98.4; Pulse Ox 97% on R/A; Weight 95.25 kg; Height ll1 5 ft. 4 in. ; Pain 4/10; 14:34 BP 126 / 79; Pulse 62; Resp 14 S; Pulse Ox 97% on R/A; kc6 15:28 BP 132 / 78; Pulse 68; Resp 14 S; Pulse Ox 96% on R/A; kc6 13:23 Body Mass Index 36.05 (95.25 kg, 162.56 cm) ll1 13:23 Pain Scale: Adult ll1 Raquel Coma Score: 14:36 Eye Response: spontaneous(4). Motor Response: obeys commands(6). Verbal Response: kobi oriented(5). Total: 15. ED Course: 13:00 Patient has correct armband on for positive identification. Bed in low position. Call kc6 light in reach. Side rails up X 1. Adult w/ patient. 13:12 Patient arrived in ED. kobi 13:12 Gideon Schmidt MD is Attending Physician. kobi 13:23 Arm band placed on Patient placed in an exam room, on a stretcher. ll1 13:24 Triage completed. ll1 13:31 Ana Rosa Diego, ANNY is Primary Nurse. kc6 13:49 Initial lab(s) drawn, by me, sent to lab. Urine collected: clean catch specimen, clear. mb4 Inserted saline lock: 22 gauge in left antecubital area, using aseptic technique. Blood collected. 14:00 Inserted saline lock: 20 gauge in right antecubital area, using aseptic technique. kc6 14:26 Chest Single View In Process Unspecified. EDMS 15:21 CT Abd/Pelvis - PO and IV Contrast In Process Unspecified. EDMS 15:50 Gonzalez Mccollum MD is Referral Physician. kobi 16:09 No provider procedures requiring assistance completed. IV discontinued, intact, kc6 bleeding controlled, No redness/swelling at site. Pressure dressing applied. Administered Medications: 14:44 Discontinued: NS 0.9% IV 1000 ml IV at 125 ml/hr continuous kobi 14:00 Drug: NS 0.9% IV 500 ml Route: IV; Rate: bolus; Site: right antecubital; kc6 15:28 Follow up: Response: No adverse reaction; IV Status: Completed infusion; IV Intake: kc6 500ml 14:00 Drug: NS 0.9% IV 1000 ml Route: IV; Rate: 125 ml/hr; Site: right antecubital; kc6 15:27 Follow up: IV Status: Order to discontinue infusion kc6 15:26 Drug: NS 0.9% with KCl IV 20 mEq/L 1000 ml Route: IV; Rate: 200 ml/hr; Site: right kc6 antecubital; 16:12 Follow up: IV Status: Completed infusion kc6 16:08 Drug: Potassium PO Effervescent Tablet 25 mEq Route: PO; kc6 16:12 Follow up: Response: No adverse reaction kc6 Medication: 16:09 VIS not applicable for this client. kc6 Intake: 15:28 IV: 500ml; Total: 500ml. kc6 Outcome: 15:50 Discharge ordered by . kobi 16:09 Discharged to home ambulatory, with family. kc6 16:09 Condition: improved 16:09 Discharge instructions given to patient, Instructed on discharge instructions, follow up and referral plans. medication usage, Demonstrated understanding of instructions, follow-up care, medications, Prescriptions given X 2. 16:12 Patient left the ED. kc6 Signatures: Dispatcher [employer] EDAK Gideon Schmidt MD MD cha Baxter, Mackenzie mb4 Edison Santizo, ANNY RN ll1 Ana Rosa Diego RN RN kc6
--- NOTE | 2022-10-31 15:51 | EDPHYS ---
Physician Documentation [facility] Name: Emily Amaral Age: 52 yrs Sex: Female : 1970 Arrival Date: 10/31/2022 Time: 13:02 Bed 13 Private MD: DARIANA Physician Gideon Schmidt HPI: 10/31 14:36 This 52 yrs old Female presents to ER via Ambulatory with complaints of kobi Abdominal Pain, Abdominal Distention. 14:36 The patient presents with abdominal pain abdominal distention in the upper abdomen. kobi Onset: The symptoms/episode began/occurred 3 day(s) ago. The symptoms do not radiate. Associated signs and symptoms: none. The symptoms are described as crampy. Modifying factors: The symptoms are alleviated by nothing, the symptoms are aggravated by food. Severity of pain: At its worst the pain was moderate in the emergency department the pain is unchanged. The patient has not experienced similar symptoms in the past. Historical: - Allergies: 13:24 Demerol; ll1 - PMHx: 13:24 cervical cancer; Endometrosis; Pancreatitis; ll1 - PSHx: 13:24 Cholecystectomy; hysterectomy; oopherectomy; ll1 - Immunization history:: Client reports having NOT received the Covid vaccine. - Social history:: Smoking status: Patient denies any tobacco usage or history of. - Hospitalizations: : No recent hospitalization is reported. ROS: 14:36 Constitutional: Negative for fever, chills, and weight loss, Eyes: Negative for injury, kobi pain, redness, and discharge, ENT: Negative for injury, pain, and discharge, Neck: Negative for injury, pain, and swelling, Cardiovascular: Negative for chest pain, palpitations, and edema, Respiratory: Negative for shortness of breath, cough, wheezing, and pleuritic chest pain, Back: Negative for injury and pain, : Negative for injury, bleeding, discharge, and swelling, MS/Extremity: Negative for injury and deformity, Skin: Negative for injury, rash, and discoloration, Neuro: Negative for headache, weakness, numbness, tingling, and seizure, Psych: Negative for depression, anxiety, suicide ideation, homicidal ideation, and hallucinations, Allergy/Immunology: Negative for hives, rash, and allergies, Endocrine: Negative for neck swelling, polydipsia, polyuria, polyphagia, and marked weight changes, Hematologic/Lymphatic: Negative for swollen nodes, abnormal bleeding, and unusual bruising. 14:36 Abdomen/GI: Positive for abdominal pain, of the epigastric area, right upper quadrant and left upper quadrant. Exam: 14:36 Constitutional: This is a well developed, well nourished patient who is awake, alert, kobi and in no acute distress. Head/Face: Normocephalic, atraumatic. Eyes: Pupils equal round and reactive to light, extra-ocular motions intact. Lids and lashes normal. Conjunctiva and sclera are non-icteric and not injected. Cornea within normal limits. Periorbital areas with no swelling, redness, or edema. ENT: Nares patent. No nasal discharge, no septal abnormalities noted. Tympanic membranes are normal and external auditory canals are clear. Oropharynx with no redness, swelling, or masses, exudates, or evidence of obstruction, uvula midline. Mucous membranes moist. Neck: Trachea midline, no thyromegaly or masses palpated, and no cervical lymphadenopathy. Supple, full range of motion without nuchal rigidity, or vertebral point tenderness. No Meningismus. Chest/axilla: Normal chest wall appearance and motion. Nontender with no deformity. No lesions are appreciated. Cardiovascular: Regular rate and rhythm with a normal S1 and S2. No gallops, murmurs, or rubs. Normal PMI, no JVD. No pulse deficits. Respiratory: Lungs have equal breath sounds bilaterally, clear to auscultation and percussion. No rales, rhonchi or wheezes noted. No increased work of breathing, no retractions or nasal flaring. Back: No spinal tenderness. No costovertebral tenderness. Full range of motion. Female : Normal external genitalia. Skin: Warm, dry with normal turgor. Normal color with no rashes, no lesions, and no evidence of cellulitis. MS/ Extremity: Pulses equal, no cyanosis. Neurovascular intact. Full, normal range of motion. Neuro: Awake and alert, GCS 15, oriented to person, place, time, and situation. Cranial nerves II-XII grossly intact. Motor strength 5/5 in all extremities. Sensory grossly intact. Cerebellar exam normal. Normal gait. Psych: Awake, alert, with orientation to person, place and time. Behavior, mood, and affect are within normal limits. 14:36 Abdomen/GI: Inspection: distension, that is mild, Bowel sounds: normal, Palpation: mild abdominal tenderness, in the epigastric area, right upper quadrant and left upper quadrant, Liver: no appreciated palpable abnormalities, Hernia: not appreciated. 14:36 Musculoskeletal/extremity: DVT Exam: No signs of deep vein thrombosis. no pain, no swelling, no tenderness, negative Homans' sign noted on exam, no appreciated bluish discoloration, no erythema, no increased warmth. 14:53 ECG was reviewed by the Attending Physician. kobi Vital Signs: 13:23 BP 142 / 76; Pulse 72; Resp 18; Temp 98.4; Pulse Ox 97% on R/A; Weight 95.25 kg; Height ll1 5 ft. 4 in. ; Pain 4/10; 14:34 BP 126 / 79; Pulse 62; Resp 14 S; Pulse Ox 97% on R/A; kc6 15:28 BP 132 / 78; Pulse 68; Resp 14 S; Pulse Ox 96% on R/A; kc6 13:23 Body Mass Index 36.05 (95.25 kg, 162.56 cm) ll1 13:23 Pain Scale: Adult ll1 Raquel Coma Score: 14:36 Eye Response: spontaneous(4). Motor Response: obeys commands(6). Verbal Response: kobi oriented(5). Total: 15. MDM: 13:12 Patient medically screened. kobi 14:39 Differential diagnosis: acute coronary syndrome, bowel obstruction, diverticulitis, kobi gastritis, GI Bleed, Hepatitis, myocardia ischemia or infarction, non-specific abd pain, Peptic Ulcer Disease, Peritonitis, urinary tract infection. Data reviewed: vital signs, nurses notes, lab test result(s), EKG, radiologic studies, CT scan, plain films. Consideration of Admission/Observation Escalation of care including admission/observation considered. I considered the following discharge prescriptions or medication management in the emergency department Medications were administered in the Emergency Department. See MAR. Test considered but Not performed: Ultrasound NO ABD USG. Care significantly affected by the following chronic conditions: GB, CERVICAL CANCER, ENDOMETRIOSIS, PANCREATITIS. 10/31 14:02 Order name: Basic Metabolic Panel [facility] 10/31 14:02 Order name: Liver (Hepatic) Function [facility] 10/31 14:02 Order name: Troponin High Sensitivity [facility] 10/31 14:02 Order name: NT PRO-BNP [facility] 10/31 14:02 Order name: Magnesium [facility] 10/31 14:02 Order name: Lipase [facility] 10/31 14:02 Order name: CBC with Automated Diff [facility] 10/31 14:02 Order name: Protime (+INR) [facility] 10/31 14:03 Order name: Urinalysis w/ reflexes; Complete Time: 14:28 [facility] 10/31 14:03 Order name: Test, Urine; Complete Time: 14:28 [facility] 10/31 13:50 Order name: Chest Single View; Complete Time: 14:43 [facility] 10/31 14:36 Order name: CT Abd/Pelvis - PO and IV Contrast; Complete Time: 15:49 [facility] 10/31 13:23 Order name: EKG; Complete Time: 13:59 [facility] 10/31 13:23 Order name: Cardiac monitoring; Complete Time: 13:43 [facility] 10/31 13:23 Order name: EKG - Nurse/Tech; Complete Time: 13:43 [facility] 10/31 13:23 Order name: IV Saline Lock; Complete Time: 14:00 [facility] 10/31 13:23 Order name: Labs collected and sent; Complete Time: 13:44 [facility] 10/31 13:23 Order name: O2 Per Protocol; Complete Time: 13:44 [facility] 10/31 13:23 Order name: O2 Sat Monitoring; Complete Time: 13:44 [facility] EC:53 Rate is 66 beats/min. Rhythm is regular. QRS [place] is Normal. [place] interval is normal. QRS kobi interval is normal. QT interval is normal. No Q waves. T waves are Normal. ST Segment is depressed in leads II, III, aVF, V4, V5, V6. Clinical impression: Abnormal EKG without significant change and No evidence of ischemia. Interpreted by me. Reviewed by me. Administered Medications: 14:44 Discontinued: NS 0.9% IV 1000 ml IV at 125 ml/hr continuous kobi 14:00 Drug: NS 0.9% IV 500 ml Route: IV; Rate: bolus; Site: right antecubital; kc6 15:28 Follow up: Response: No adverse reaction; IV Status: Completed infusion; IV Intake: kc6 500ml 14:00 Drug: NS 0.9% IV 1000 ml Route: IV; Rate: 125 ml/hr; Site: right antecubital; kc6 15:27 Follow up: IV Status: Order to discontinue infusion kc6 15:26 Drug: NS 0.9% with KCl IV 20 mEq/L 1000 ml Route: IV; Rate: 200 ml/hr; Site: right kc6 antecubital; 16:12 Follow up: IV Status: Completed infusion kc6 16:08 Drug: Potassium PO Effervescent Tablet 25 mEq Route: PO; kc6 16:12 Follow up: Response: No adverse reaction kc6 Disposition Summary: 10/31/22 15:50 Discharge Ordered Location: Home kobi Problem: new kobi Symptoms: have improved koib Condition: Stable kobi Diagnosis - Epigastric abdominal tenderness kobi - Abdominal pain, unspecified kobi - Hypokalemia kobi Followup: kobi - With: Private Physician - When: 2 - 3 days - Reason: Recheck today's complaints, Continuance of care, Re-evaluation by your physician Followup: kobi - With: - When: 2 - 3 days - Reason: Recheck today's complaints, Re-evaluation by your physician Discharge Instructions: - Discharge Summary Sheet kobi - Abdominal Pain, Adult kobi - Potassium Content of Foods kobi - Abdominal Pain, Adult, [id number] kobi - Hypokalemia [facility] Forms: - Medication Reconciliation Form [facility] - Thank You Letter kobi - Antibiotic Education kobi - Prescription Opioid Use kobi - Patient Portal [email or web address] [facility] Prescriptions: - ondansetron 4 mg Oral Tablet,disintegrating - take 1 tablet by ORAL route 2 to 3 times per day as needed for nausea and kobi vomiting; 24 tablet; Refills: 0, Product Selection Permitted - Pepcid 20 mg Oral Tablet - take 1 tablet by ORAL route every 12 hours for 21 days; 42 tablet; Refills: 0, [facility] Product Selection Permitted - dicyclomine 20 mg Oral Tablet - take 1 tablet by ORAL route 4 times per day; 28 tablet; Refills: 0, Product [facility] Selection Permitted Signatures: Dispatcher [employer] EDGideon Sylvester MD MD cha Lewis, Lynsay RN RN ll1 Ana Rosa Diego RN RN kc6 Corrections: (The following items were deleted from the chart) 14:22 13:59 BASIC METABOLIC PANEL+C.LAB.BRZ ordered. EDMS EDMS 14:22 13:59 CBC+H.LAB.BRZ ordered. EDMS EDMS 14:22 13:59 HEPATIC FUNCTION+C.LAB.BRZ ordered. EDMS EDMS 14:22 13:59 MAGNESIUM+C.LAB.BRZ ordered. EDMS EDMS 14:22 13:59 PROBNP+C.LAB.BRZ ordered. EDMS EDMS 14:22 13:59 Troponin High Sensitivity+C.LAB.BRZ ordered. EDMS EDMS 14:22 13:59 LIPASE+C.LAB.BRZ ordered. EDMS EDMS 14:23 13:59 PROTIME (+INR)+COAG.LAB.BRZ ordered. EDMS EDMS 14:23 13:59 Urinalysis+U.LAB.BRZ ordered. EDMS EDMS 14:23 13:59 Test, Urine+UC.LAB.BRZ ordered. EDMS EDMS 14:27 13:59 Chest Single View+RAD.RAD.BRZ ordered. EDMS EDMS 14:46 13:43 Abdomen ordered. EDMS EDMS
[2022-10-31] MEDS ORDERED: NS KCL 20MEQ 1,000 ML IV SCH (16:00)
[2022-10-31] MEDS ORDERED: POTASSIUM 25 MEQ EFFERV TAB ONE (16:04)
[2022-10-31 17:02] VITALS: TEMP 98.4
[2022-10-31 17:04] VITALS: BP 132/78; O2SAT 96
[2022-10-31 22:23] LABS: Protime INR ND
--- NOTE | 2022-11-01 15:47 | EKG ---
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
== END 2022-10-31 16:12 | disposition home or self-care (01) ==
LOC: ER 13:02
DX: R10.816 Epigastric abdominal tenderness (principal); E87.6 Hypokalemia; R10.11 Right upper quadrant pain; R10.12 Left upper quadrant pain
CPT/HCPCS: 85025; 81001; 80048; 36415; 83735; 81025; 85610; 80076; 84484; 83690; 83880; 74177; 71045; Q9967; J7040; J7030; J3480; 93005

== ENCOUNTER 2022-11-06 11:29 | Emergency (ER) | payer BC ==
--- OUTSIDE RECORDS SUMMARY | 2022-11-06 11:33 | XMS REPORT | Continuity of Care Document ---
:1970 Author Organization [facility] t Address [address] [place] [id number] Care Team Providers Name Role Phone Unavailable Unavailable Unavailable Problems This patient has no known problems. Allergies, Adverse Reactions, Alerts This patient has no known allergies or adverse reactions. Medications This patient has no known medications. Procedures This patient has no known procedures. Results This patient has no known results.
[2022-11-06] MEDS ORDERED: MAGNES/ALUMIN/SIMET 30ML UCUP ONE (12:39)
[2022-11-06] MEDS ORDERED: MORPHINE 4 MG/ML SYR ONE ×2 (12:39→15:51)
[2022-11-06] MEDS ORDERED: ONDANSETRON 4 MG/2 ML VIAL ONE (12:39)
[2022-11-06] MEDS ORDERED: NA CHLORIDE 0.9% 1,000 ML ONE (12:39)
[2022-11-06 12:44] LABS: Absolute Lymphocytes (CBC) 2.7 K/uL (0.7-4.9); Hematocrit 42.7 % (36.0-45.0); Lymphocytes % 31.8 % (15.3-44.8); MCV 91.6 fL (80-100); MPV 8.4 fL (7.6-11.3); RBC Red Blood Cell Count 4.67 M/uL (3.86-4.86)
[2022-11-06 13:02] LABS: Albumin 3.9 g/dL (3.4-5.0); Bilirubin Total 0.6 mg/dL (0.2-1.0); Magnesium 2.3 mg/dL (1.6-2.4); Potassium 4.2 mEq/L (3.5-5.1); Protein, Total 7.7 g/dL (6.4-8.2)
[2022-11-06 13:03] LABS: Specific Gravity 1.022 (1.005-1.030); Urine Bacteria 20-50 /HPF (<20); Urine Bilirubin NEGATIVE (Negative); Urine Blood Negative (Negative); Urine Clarity Turbid (Clear); Urine Color Light-Yellow (Yellow); Urine Glucose NEGATIVE (Negative); Urine Mucus Slight /HPF (None Seen); Urine Protein NEGATIVE (Negative); Urine Urobilinogen Normal (Normal)
--- NOTE | 2022-11-06 15:13 | RAD REPORT ---
EXAM DESCRIPTION: US - Liver Only - 11/06/2022 1:31 pm CLINICAL HISTORY: no GB, abd swelling;Abdominal distention COMPARISON: <Comparisons> FINDINGS: The liver is normal in echotexture.No focal liver lesion or intrahepatic biliary dilatatio n.No evidence of portal vein thrombosis. The spleen is normal measuring 10 cm. IMPRESSION: Unremarkable study.
--- NOTE | 2022-11-06 15:38 | ER ---
Nurse's Notes [facility] Name: Emily Amaral Age: 52 yrs Sex: Female : 1970 Arrival Date: 11/06/2022 Time: 11:29 Bed 13 Private MD: Surya Salcedo T Diagnosis: Acute peptic ulcer, site unspecified, without hemorrhage or perforation;Upper abdominal pain, unspecified Presentation: 11/06 11:44 Chief complaint: Patient states: "I was seen here with upper abdominal pain a few days aa5 ago and today is worse so I called Dr. Carpenter's office and they said to come here". Pt reports she was seen by Dr. Carpenter on Saturday and has endoscopy scheduled. Pt reports Nausea/vomiting/diarrhea. Coronavirus screen: At this time, the client does not indicate any symptoms associated with coronavirus-19. Ebola Screen: Patient denies travel to an Ebola-affected area in the 21 days before illness onset. Initial Sepsis Screen: Does the patient meet any 2 criteria? No. Patient's initial sepsis screen is negative. Does the patient have a suspected source of infection? No. Patient's initial sepsis screen is negative. Risk Assessment: Do you want to hurt yourself or someone else? Patient reports no desire to harm self or others. Onset of symptoms was October 2022. 11:44 Acuity: PRIYA 3 aa5 11:44 Method Of Arrival: Ambulatory aa5 Historical: - Allergies: 11:46 Demerol; aa5 - PMHx: 11:46 cervical cancer; Endometrosis; Pancreatitis; aa5 - PSHx: 11:46 Cholecystectomy; hysterectomy; oopherectomy; aa5 - Immunization history:: Adult Immunizations unknown. - Social history:: Smoking status: Patient denies any tobacco usage or history of. Screenin:00 [facility] ED Fall Risk Assessment (Adult) History of falling in the last 3 months, cm10 including since admission No falls in past 3 months (0 pts) Confusion or Disorientation No (0 pts) Intoxicated or Sedated No (0 pts) Impaired Gait No (0 pts) Mobility Assist Device Used No (0 pt) Altered Elimination No (0 pt) Score/Fall Risk Level 0 - 2 = Low Risk Oriented to surroundings, Maintained a safe environment. Abuse screen: Denies threats or abuse. Denies injuries from another. Nutritional screening: No deficits noted. Tuberculosis screening: No symptoms or risk factors identified. Assessment: 13:47 General: Appears in no apparent distress. comfortable, Behavior is calm, cooperative. cm10 Pain: Complains of pain in abdomen Pain does not radiate. Pain currently is 3 out of 10 on a pain scale. Quality of pain is described as dull. Neuro: No deficits noted. Level of Consciousness is awake, alert, obeys commands, Oriented to person, place, time, situation. Cardiovascular: No deficits noted. Capillary refill < 3 seconds. Respiratory: No deficits noted. Airway is patent Respiratory effort is even, unlabored, Respiratory pattern is regular, symmetrical. GI: Bowel sounds Abd is soft. Vital Signs: 11:44 BP 129 / 80; Pulse 62; Resp 18 S; Temp 97.5(TE); Pulse Ox 99% on R/A; Weight 95.25 kg aa5 (R); Height 5 ft. 4 in. (R); 12:30 BP 140 / 70; Pulse 74; Resp 16; Pulse Ox 99% on R/A; cm10 13:30 BP 135 / 78; Pulse 56; Resp 16; Pulse Ox 99% on R/A; cm10 14:00 BP 129 / 77; Pulse 59; Resp 16; Pulse Ox 100% on R/A; cm10 14:00 BP 123 / 75; Pulse 56; Resp 16; Pulse Ox 100% on R/A; cm10 11:44 Body Mass Index 36.05 (95.25 kg, 162.56 cm) aa5 ED Course: 11:32 Patient arrived in ED. am2 11:33 Surya Salcedo MD is Private Physician. am2 11:38 Christelle Garcia PA-C is PHCP. sb4 11:38 Richmond Gray MD is Attending Physician. sb4 11:44 Arm band placed on. aa5 11:46 Triage completed. aa5 13:32 Liver Only In Process Unspecified. EDMS 13:37 Carlene Esteban, ANNY is Primary Nurse. cm10 15:36 Cedric Carpenter MD is Referral Physician. sb4 16:00 Patient has correct armband on for positive identification. Bed in low position. Call cm10 light in reach. Side rails up X2. Provided Education on: NA. 16:00 No provider procedures requiring assistance completed. IV discontinued, intact, cm10 bleeding controlled, No redness/swelling at site. Pressure dressing applied. Administered Medications: 12:34 Drug: GI Cocktail with - (Phenobarbital-Belladonna PO 10 ml, Maalox PO bp Suspension 30 ml, Lidocaine Mucous Membrane Liquid 2 % 20 ml) {Note: NO DONNATOL OR VISCOUS LIDO AVAILABLE.} Route: PO; 13:46 Follow up: Response: No adverse reaction; Pain is decreased cm10 12:35 Drug: NS 0.9% IV 1000 ml Route: IV; Rate: 1 bolus; Site: left antecubital; bp 15:07 Follow up: Response: No adverse reaction; IV Status: Completed infusion; IV Intake: cm10 1000ml 12:35 Drug: Ondansetron IVP 4 mg Route: IVP; Site: left antecubital; bp 13:46 Follow up: Response: No adverse reaction cm10 12:35 Drug: morphine IVP or IV 4 mg Route: IVP; Infused Over: 4 mins; Site: left antecubital; bp 13:46 Follow up: Response: No adverse reaction; Pain is decreased cm10 15:52 Drug: morphine IVP or IV 4 mg Route: IVP; Infused Over: 4 mins; Site: left antecubital; cm10 15:52 Drug: metoCLOPramide IVP 10 mg Route: IVP; Site: left antecubital; cm10 15:52 Drug: Pantoprazole IVP 40 mg Route: IVP; Site: left antecubital; cm10 Intake: 15:07 IV: 1000ml; Total: 1000ml. cm10 Outcome: 15:37 Discharge ordered by . clarisa 16:00 Discharged to home ambulatory, with family. cm10 16:00 Condition: good 16:00 Discharge instructions given to patient, Instructed on discharge instructions, follow up and referral plans. medication usage, Demonstrated understanding of instructions, follow-up care, medications, Prescriptions given X 2. 16:01 Patient left the ED. cm10 Signatures: Dispatcher [employer] EDMS Bethany Carey, RN RN aa5 Karlee Kuhn am2 Kameron Christiansen RN RN Christelle Tim PA-C PACarlene Richey RN RN cm10
--- NOTE | 2022-11-06 15:38 | EDPHYS ---
Physician Documentation [facility] Name: Emily Amaral Age: 52 yrs Sex: Female : 1970 Arrival Date: 11/06/2022 Time: 11:29 Bed 13 Private MD: Surya Salcedo T ED Physician Richmond Gray HPI: 11/06 12:06 This 52 yrs old Female presents to ER via Ambulatory with complaints of Abdominal Pain, sb4 Nausea/Vomiting. 12:06 The patient presents with abdominal pain in the epigastric area, in the upper abdomen. sb4 Onset: The symptoms/episode began/occurred gradually. The symptoms do not radiate. Associated signs and symptoms: Pertinent positives: nausea, vomiting, and diarrhea. The symptoms are described as constant, crampy. Modifying factors: The symptoms are alleviated by nothing, the symptoms are aggravated by drinking, food. Historical: - Allergies: 11:46 Demerol; aa5 - PMHx: 11:46 cervical cancer; Endometrosis; Pancreatitis; aa5 - PSHx: 11:46 Cholecystectomy; hysterectomy; oopherectomy; aa5 - Immunization history:: Adult Immunizations unknown. - Social history:: Smoking status: Patient denies any tobacco usage or history of. ROS: 12:06 Constitutional: Negative for fever, chills, and weight loss, Eyes: Negative for injury, sb4 pain, redness, and discharge, Cardiovascular: Negative for chest pain, palpitations, and edema, Respiratory: Negative for shortness of breath, cough, wheezing, and pleuritic chest pain, MS/Extremity: Negative for injury and deformity, Skin: Negative for injury, rash, and discoloration, Neuro: Negative for headache, weakness, numbness, tingling, and seizure. 12:06 Abdomen/GI: Positive for abdominal pain, nausea, vomiting, and diarrhea, abdominal cramps, Negative for dysphagia, hematemesis, rectal bleeding, bowel incontinence. 12:06 All other systems are negative. Exam: 12:06 Constitutional: This is a well developed, well nourished patient who is awake, alert, sb4 and in no acute distress. Head/Face: Normocephalic, atraumatic. Eyes: Extra-ocular motions intact. Periorbital areas with no swelling, redness, or edema. Cardiovascular: Regular rate and rhythm with a normal S1 and S2. Respiratory: Lungs have equal breath sounds bilaterally, clear to auscultation and percussion. No rales, rhonchi or wheezes noted. No increased work of breathing, no retractions or nasal flaring. Skin: Warm, dry with normal turgor. Normal color with no rashes, no lesions, and no evidence of cellulitis. MS/ Extremity: Pulses equal, no cyanosis. Neurovascular intact. Full, normal range of motion. Neuro: Awake and alert, GCS 15, oriented to person, place, time, and situation. Cranial nerves II-XII grossly intact. Motor strength 5/5 in all extremities. Sensory grossly intact. Cerebellar exam normal. Normal gait. 12:06 Abdomen/GI: Inspection: abdomen appears normal, Bowel sounds: diminished, in all quadrants, Palpation: soft, in all quadrants, mild abdominal tenderness, in the epigastric area. Vital Signs: 11:44 BP 129 / 80; Pulse 62; Resp 18 S; Temp 97.5(TE); Pulse Ox 99% on R/A; Weight 95.25 kg aa5 (R); Height 5 ft. 4 in. (R); 12:30 BP 140 / 70; Pulse 74; Resp 16; Pulse Ox 99% on R/A; cm10 13:30 BP 135 / 78; Pulse 56; Resp 16; Pulse Ox 99% on R/A; cm10 14:00 BP 129 / 77; Pulse 59; Resp 16; Pulse Ox 100% on R/A; cm10 14:00 BP 123 / 75; Pulse 56; Resp 16; Pulse Ox 100% on R/A; cm10 11:44 Body Mass Index 36.05 (95.25 kg, 162.56 cm) aa5 MDM: 11:38 Patient medically screened. sb4 12:06 Differential diagnosis: bowel obstruction, gastritis, gastroesophageal reflux disease, sb4 non-specific abd pain, pancreatitis, Peptic Ulcer Disease, Perf. Duodenal Ulcer, Perf. Gastric Ulcer. 15:34 Data reviewed: vital signs, nurses notes, lab test result(s), radiologic studies, I sb4 have discussed the patient's presentation/case with the attending Emergency Department Physician; and as a result, I will discharge patient. Consideration of Admission/Observation Escalation of care including admission/observation considered. Test considered but Not performed: CT: done last week. Other Details H Pylori. Historians other than the Patient: Parent: mother. 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 Medication response: morphine markedly relieved the patient's pain. Symptoms have improved. Special discussion: I discussed with the patient/guardian in detail that at this point there is no indication for admission to the hospital. It is understood, however, that if the symptoms persist or worsen the patient needs to return immediately for re-evaluation. Further emergent ED testing is not indicated at this point in time. I discussed with the patient/guardian in detail the need to arrange with the PCP or specialist further outpatient testing, EGD. ED course: Explained that there are no new findings in the patient's workup to explain her symptoms. She is frustrated but understands. She has an EGD scheduled with Dr. Carpenter for December 07 and will try to get that moved sooner. I reiterated the importance of her taking protonix as her symptoms are likely secondary to an ulcer. I also informed her of the possibility of H Pylori infection, she understands. 11/06 11:56 Order name: CBC with Diff; Complete Time: 13:20 sb4 11/06 11:56 Order name: CMP; Complete Time: 13:20 sb4 11/06 11:56 Order name: Lipase; Complete Time: 13:20 sb4 11/06 11:56 Order name: Urinalysis w/ reflexes; Complete Time: 13:20 sb4 11/06 11:57 Order name: Magnesium; Complete Time: 13:20 sb4 11/06 12:41 Order name: Liver Only; Complete Time: 15:14 EDMS 11/06 11:56 Order name: IV Saline Lock; Complete Time: 12:35 sb4 11/06 11:56 Order name: Labs collected and sent; Complete Time: 12:35 sb4 Administered Medications: 12:34 Drug: GI Cocktail with - (Phenobarbital-Belladonna PO 10 ml, Maalox PO bp Suspension 30 ml, Lidocaine Mucous Membrane Liquid 2 % 20 ml) {Note: NO DONNATOL OR VISCOUS LIDO AVAILABLE.} Route: PO; 13:46 Follow up: Response: No adverse reaction; Pain is decreased cm10 12:35 Drug: NS 0.9% IV 1000 ml Route: IV; Rate: 1 bolus; Site: left antecubital; bp 15:07 Follow up: Response: No adverse reaction; IV Status: Completed infusion; IV Intake: cm10 1000ml 12:35 Drug: Ondansetron IVP 4 mg Route: IVP; Site: left antecubital; bp 13:46 Follow up: Response: No adverse reaction cm10 12:35 Drug: morphine IVP or IV 4 mg Route: IVP; Infused Over: 4 mins; Site: left antecubital; bp 13:46 Follow up: Response: No adverse reaction; Pain is decreased cm10 15:52 Drug: morphine IVP or IV 4 mg Route: IVP; Infused Over: 4 mins; Site: left antecubital; cm10 15:52 Drug: metoCLOPramide IVP 10 mg Route: IVP; Site: left antecubital; cm10 15:52 Drug: Pantoprazole IVP 40 mg Route: IVP; Site: left antecubital; cm10 Disposition: 16:07 Co-signature as Attending Physician, Richmond Gray MD I reviewed the patient's care rn provided by the Advanced Practice Provider and agree with the diagnosis and treatment plan. Disposition Summary: 11/06/22 15:37 Discharge Ordered Location: Home sb4 Problem: an ongoing problem sb4 Symptoms: have improved sb4 Condition: Stable sb4 Diagnosis - Acute peptic ulcer, site unspecified, without hemorrhage or perforation sb4 - Upper abdominal pain, unspecified sb4 Followup: sb4 - With: Cedric Carpenter MD - When: 1 - 2 days - Reason: Further diagnostic work-up, Recheck today's complaints, Continuance of care, Re-evaluation by your physician Discharge Instructions: - Discharge Summary Sheet sb4 - Peptic Ulcer, [id number] sb4 Forms: - Medication Reconciliation Form sb4 - Thank You Letter sb4 - Antibiotic Education sb4 - Prescription Opioid Use sb4 - Patient Portal Instructions sb4 Prescriptions: - sucralfate 1 gram Oral tablet - take 1 tablet by ORAL route before meals for 4 wks; 90 tablet; Refills: 0, sb4 Product Selection Permitted - Zofran 4 mg Oral Tablet - take 1 tablet by ORAL route every 12 hours As needed; 20 tablet; Refills: 0, sb4 Product Selection Permitted Signatures: Dispatcher [employer] Richmond Doll MD MD rn Calderon, Audri, RN RN aa5 Kameron Christiansen RN RN Christelle Tim, PASolomonC PAElsi sb4 Carlene Esteban RN RN cm10 Corrections: (The following items were deleted from the chart) 12:41 11:56 Abdomen Limited+US.RAD.BRZ ordered. EDMS EDMS
[2022-11-06] MEDS ORDERED: 0.9 % SODIUM CHLORIDE 20 ML ONE (15:51)
[2022-11-06] MEDS ORDERED: PANTOPRAZOLE 40 MG INJ ONE (15:51)
[2022-11-06] MEDS ORDERED: METOCLOPRAMIDE 10 MG/2mL INJ ONE (15:54)
[2022-11-06 16:20] VITALS: TEMP 97.5
[2022-11-06 16:24] VITALS: BP 123/75; O2SAT 100
== END 2022-11-06 16:01 | disposition home or self-care (01) ==
LOC: ER 11:29
DX: K27.3 Acute peptic ulcer, site unspecified, without hemorrhage or perforation (principal); Z88.5 Allergy status to narcotic agent
CPT/HCPCS: 85025; 81001; 36415; 83735; 83690; 80053; 76705; J2765; C9113; J2405; J7030

== ENCOUNTER → 2023-04-18 | Emergency (ER) | payer BC, OTHER ==
[~2023-04-18] MED LIST: ACETAMINOPHEN 325 MG TABLET ONE; HYDROCODONE/APAP 7.5/325 MG TAB ONE; KETOROLAC 30 MG/ML INJ ONE
--- OUTSIDE RECORDS SUMMARY | 2023-04-18 16:43 | XMS REPORT | Continuity of Care Document ---
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
[2023-04-18 17:47] LABS: Absolute Lymphocytes (CBC) 3.1 K/uL (0.7-4.9); Hematocrit 43.2 % (36.0-45.0); Lymphocytes % 50.7 % (15.3-44.8); MPV 8.5 fL (7.6-11.3); Platelets 259 thou/uL (152-406); RBC Red Blood Cell Count 4.74 M/uL (3.86-4.86)
--- NOTE | 2023-04-18 17:55 | RAD REPORT ---
EXAM DESCRIPTION: CTChest Abd Pelvis Wo Con - 04/18/2023 5:42 pm CLINICAL HISTORY: left rib eval, diarrhea, bloating;Abdominal distention COMPARISON: No comparisons TECHNIQUE: CT of the chest, abdomen, and pelvis was performed. All CT scans are performed using dose optimization technique as appropriate and may include automated exposure control or mA/KV adjustment according to patient size. FINDINGS: Thorax: Chest Wall: No abnormal mass Lungs: No acute abnormality. Pleura: No effusions or pneumothorax. Roxi/Mediastinum: No lymphadenopathy. Small hiatal hernia. Mild circumferential thickened distal esop hagus could reflect a component of esophagitis. Endoscopy could better evaluate this finding. Aorta/Pulmonary Arteries: Unremarkable Heart: Normal size. Abdomen/Pelvis: Liver: No acute abnormality or suspicious lesions. Biliary: No biliary ductal dilatation. Cholecystectomy Stomach: No significant focal abnormality. Duodenum: No significant focal abnormality. Pancreas: No significant abnormality. Spleen: No significant abnormality. Adrenal: No suspicious lesions. Kidney/ureter: No hydronephrosis. No renal calculi. Retroperitoneum: No retroperitoneal adenopathy. Vascular: No aneurysm. Bowel: Mild wall thickening and subtle stranding and descending colon.. Normal appendix. Peritoneum: No ascites or free air. Bladder: Grossly unremarkable. Reproductive: No adnexal masses. Hysterectomy. Bones: No acute fracture. Other: n/a IMPRESSION: 1. Possible mild colitis of the descending colon. 2. No acute findings within the chest.
[2023-04-18 17:57] LABS: SARS-CoV-2 Antigen Rapid Res Negative (Negative)
[2023-04-18 18:05] LABS: Albumin 3.5 g/dL (3.4-5.0); Bilirubin Total 0.3 mg/dL (0.2-1.0); Potassium 3.5 mEq/L (3.5-5.1); Protein, Total 7.5 g/dL (6.4-8.2)
--- NOTE | 2023-04-18 18:35 | ER ---
Nurse's Notes [facility] Name: Emily Amaral Age: 52 yrs Sex: Female : 1970 Arrival Date: 04/18/2023 Time: 16:41 Bed 5 Private MD: Diagnosis: Rib contusion;Fall on and from ladder, initial encounter Presentation: 04/18 16:55 Chief complaint: Patient states: LEFT SIDED RIB PAIN S/P FALL. PT STATES THAT SHE FELL cm10 OFF A LADDER ON SATURDAY AND HIT THE GRANITE COUNTERTOP. PT ALSO REPORTS PAIN TO HER LEG. Coronavirus screen: Vaccine status: Patient reports being unvaccinated. Client denies travel out of the [place] in the last 14 days. Ebola Screen: Patient denies travel to an Ebola-affected area in the 21 days before illness onset. No symptoms or risks identified at this time. Initial Sepsis Screen: Does the patient meet any 2 criteria? No. Patient's initial sepsis screen is negative. Does the patient have a suspected source of infection? No. Patient's initial sepsis screen is negative. Risk Assessment: Do you want to hurt yourself or someone else? Patient reports no desire to harm self or others. Onset of symptoms was April 18, 2023. 16:55 Method Of Arrival: Ambulatory cm10 16:55 Acuity: PRIYA 4 cm10 Triage Assessment: 19:36 General: Appears in no apparent distress. Behavior is calm, cooperative. tm6 Historical: - Allergies: 16:56 Demerol; cm10 - PMHx: 16:56 cervical cancer; Endometrosis; Pancreatitis; cm10 - PSHx: 16:56 Cholecystectomy; hysterectomy; oopherectomy; cm10 - Immunization history:: Adult Immunizations unknown. - Social history:: Smoking status: Patient denies any tobacco usage or history of. Screenin:58 [facility] ED Fall Risk Assessment (Adult) History of falling in the last 3 months, kc6 including since admission Yes- single mechanical fall (1 pt) Confusion or Disorientation No (0 pts) Intoxicated or Sedated No (0 pts) Impaired Gait No (0 pts) Mobility Assist Device Used No (0 pt) Altered Elimination No (0 pt) Score/Fall Risk Level 0 - 2 = Low Risk. Abuse screen: Denies threats or abuse. Denies injuries from another. Nutritional screening: No deficits noted. Tuberculosis screening: No symptoms or risk factors identified. Assessment: 17:44 Reassessment: Patient and/or family updated on plan of care and expected duration. Pain ll1 level reassessed. 19:35 Reassessment: Patient and/or family updated on plan of care and expected duration. Pain tm6 level reassessed. Patient is alert, oriented x 3, equal unlabored respirations, skin warm/dry/pink. Vital Signs: 16:55 BP 126 / 89; Pulse 97; Resp 18; Temp 98.2; Pulse Ox 100% on R/A; Weight 92.99 kg; cm10 Height 5 ft. 4 in. ; Pain 7/10; 19:34 BP 114 / 84; Pulse 83; Pulse Ox 100% on R/A; tm6 16:55 Body Mass Index 35.19 (92.99 kg, 162.56 cm) cm10 16:55 Pain Scale: Adult cm10 ED Course: 16:43 Patient arrived in ED. mr 16:44 Christelle Garcia [facility]. sb4 16:44 Jose Ernandez MD is Attending Physician. sb4 16:56 Triage completed. cm10 16:57 Arm band placed on Patient placed in waiting room. cm10 17:15 Ana Rosa Diego, RN is Primary Nurse. kc6 17:28 Missed attempt(s): 22 gauge in right antecubital area. Bleeding controlled, band aid ll1 applied, catheter tip intact. 17:30 Inserted saline lock: 22 gauge in left antecubital area, using aseptic technique. Blood ll1 collected. 17:44 CT Chest Abdomen Pelvis W/O Contrast In Process Unspecified. EDMS 17:44 SARS RAPID Sent. ll1 17:44 Flu Sent. ll1 17:59 Patient has correct armband on for positive identification. Bed in low position. Call kc6 light in reach. Side rails up X 1. Client placed on continuous cardiac and pulse oximetry monitoring. NIBP monitoring applied. 17:59 Patient maintains SpO2 saturation greater than 95% on room air. kc6 19:36 No provider procedures requiring assistance completed. tm6 19:37 Provided Education on: incentive spirometer. tm6 19:37 IV discontinued, intact, bleeding controlled, No redness/swelling at site. Pressure tm6 dressing applied. Administered Medications: 17:40 Drug: Ketorolac IVP 30 mg IVP once Route: IVP; Site: left antecubital; kc6 17:40 Drug: Hydrocodone-Acetaminophen PO (7.5 mg-325 mg) 1 tabs PO once Route: PO; kc6 17:41 Drug: Acetaminophen PO 650 mg PO once Route: PO; kc6 Medication: 19:38 VIS not applicable for this client. tm6 Outcome: 18:34 Discharge ordered by . [email or web address] 19:36 Discharged to home ambulatory, with family, tm6 19:36 Condition: stable 19:36 Discharge instructions given to patient, family, Instructed on discharge instructions, follow up and referral plans. medication usage, incentive spirometer Demonstrated understanding of instructions, follow-up care, medications, incentive spirometer Prescriptions given X 3, 19:38 Patient left the ED. tm6 Signatures: Dispatcher [employer] EDMS Lazara Nunez, Reg Reg mr Edison Santizo, RN RN ll1 Ana Rosa Diego RN RN kc6 Christelle Garcia, PA-Deyvi PA-C Carlene Lewis, ANNY RN cm10 Yesenia Resendez RN RN tm6
--- NOTE | 2023-04-18 18:35 | EDPHYS ---
Physician Documentation [facility] Name: Emily Amaral Age: 52 yrs Sex: Female : 1970 Arrival Date: 04/18/2023 Time: 16:41 Bed 5 Private MD: ED Physician Jose Ernandez HPI: 04/18 17:10 This 52 yrs old Female presents to ER via Ambulatory with complaints of Fall Injury. sb4 17:10 Details of fall: The patient fell from a height, from a ladder. Onset: The sb4 symptoms/episode began/occurred just prior to arrival. Associated injuries: The patient sustained injury to the chest, specifically the left lateral anterior chest, pain with breathing, pain with movement, tenderness. The patient has not experienced similar symptoms in the past. The patient has not recently seen a physician. patient complains of rib pain after fall. also reports FLS x 3 days with fever, body aches, abd bloating, diarrhea. Historical: - Allergies: 16:56 Demerol; cm10 - PMHx: 16:56 cervical cancer; Endometrosis; Pancreatitis; cm10 - PSHx: 16:56 Cholecystectomy; hysterectomy; oopherectomy; cm10 - Immunization history:: Adult Immunizations unknown. - Social history:: Smoking status: Patient denies any tobacco usage or history of. ROS: 17:10 Cardiovascular: Negative for chest pain, palpitations, and edema, sb4 17:10 Constitutional: Positive for body aches, fever, 17:10 Abdomen/GI: Positive for diarrhea, 17:10 MS/extremity: Positive for contusion, pain, of the left lateral anterior chest, 17:10 All other systems are negative, Exam: 17:10 Constitutional: This is a well developed, well nourished patient who is awake, alert, sb4 and in no acute distress. Head/Face: Normocephalic, atraumatic. Eyes: Extra-ocular motions intact. Periorbital areas with no swelling, redness, or edema. ENT: Mucous membranes moist. Cardiovascular: Regular rate and rhythm with a normal S1 and S2. Respiratory: Lungs have equal breath sounds bilaterally, clear to auscultation and percussion. No rales, rhonchi or wheezes noted. No increased work of breathing, no retractions or nasal flaring. Abdomen/GI: Soft, non-tender, no distension. Skin: Warm, dry with normal turgor. Normal color with no rashes, no lesions, and no evidence of cellulitis. MS/ Extremity: Pulses equal, no cyanosis. Neurovascular intact. Full, normal range of motion. Neuro: Awake and alert, GCS 15, oriented to person, place, time, and situation. Motor strength 5/5 in all extremities. Sensory grossly intact. 17:10 Chest/axilla: Inspection: normal, Palpation: tenderness, that is moderate, of the left lateral anterior chest, that partially reproduces the patient's complaints, Vital Signs: 16:55 BP 126 / 89; Pulse 97; Resp 18; Temp 98.2; Pulse Ox 100% on R/A; Weight 92.99 kg; cm10 Height 5 ft. 4 in. ; Pain 7/10; 19:34 BP 114 / 84; Pulse 83; Pulse Ox 100% on R/A; tm6 16:55 Body Mass Index 35.19 (92.99 kg, 162.56 cm) cm10 16:55 Pain Scale: Adult cm10 MDM: 17:10 Patient medically screened. sb4 17:10 Differential diagnosis: rib fracture, rib contusion, covid, flu, URI. sb4 18:33 Data reviewed: vital signs, nurses notes, lab test result(s), radiologic studies, and sb4 as a result, I will discharge patient. Counseling: I had a detailed discussion with the patient and/or guardian regarding the historical points, exam findings, and any diagnostic results supporting the discharge/admit diagnosis, lab results, radiology results, to return to the emergency department if symptoms worsen or persist or if there are any questions or concerns that arise at home. 04/18 17:03 Order name: CBC with Diff; Complete Time: 17:53 sb4 04/18 17:03 Order name: CMP; Complete Time: 18:08 sb4 04/18 17:03 Order name: Lipase; Complete Time: 18:08 sb4 04/18 17:03 Order name: SARS RAPID; Complete Time: 17:59 sb4 04/18 17:03 Order name: Flu; Complete Time: 18:16 sb4 04/18 17:03 Order name: CT Chest Abdomen Pelvis W/O Contrast; Complete Time: 17:59 sb4 04/18 17:03 Order name: IV Saline Lock; Complete Time: 17:44 sb4 04/18 17:03 Order name: Labs collected and sent; Complete Time: 17:44 sb4 04/18 18:09 Order name: Misc. Order: incentive spirometer; Complete Time: 18:23 sb4 Administered Medications: 17:40 Drug: Ketorolac IVP 30 mg IVP once Route: IVP; Site: left antecubital; kc6 17:40 Drug: Hydrocodone-Acetaminophen PO (7.5 mg-325 mg) 1 tabs PO once Route: PO; kc6 17:41 Drug: Acetaminophen PO 650 mg PO once Route: PO; kc6 Disposition: 18:33 Chart complete. sb4 Disposition Summary: 04/18/23 18:34 Discharge Ordered Notes: Location: Home sb4 Problem: new sb4 Symptoms: have improved sb4 Condition: Stable sb4 Diagnosis - Rib contusion sb4 - Fall on and from ladder, initial encounter sb4 Followup: sb4 - With: Emergency Department - When: As needed - Reason: Discharge Instructions: - Discharge Summary Sheet sb4 - Rib Contusion sb4 - How to Use an Incentive Spirometer sb4 Forms: - Medication Reconciliation Form sb4 - Thank You Letter sb4 - Antibiotic Education sb4 - Prescription Opioid Use sb4 - Patient Portal Instructions sb4 - Leadership Thank You Letter sb4 Prescriptions: - Cyclobenzaprine 10 mg Oral Tablet - take 1 tablet ORAL route every 8 hours As needed; 30 tablet; Refills: 0, sb4 Product Selection Permitted - Diclofenac Sodium 75 mg Oral Tablet Sustained Release - take 1 tablet ORAL route 2 times per day; 30 tablet; Refills: 0, Product sb4 Selection Permitted - Tramadol 50 mg Oral Tablet - take 1 tablet ORAL route every 8 hours as needed; 12 tablet; Refills: 0, sb4 Product Selection Permitted Addendum: 04/20/2023 21:13 I was immediately available for consultation during this patient's visit. I did not e c2 personally see the patient or guide the patient's care. . Signatures: Dispatcher [employer] Ana Rosa Orr RN RN kc6 Christelle Garcia, SHERIF PAElsi sb4 Carlene Esteban RN RN cm10 Jose Ernandez MD MD ec2
[2023-04-18 22:25] VITALS: BP 114/84; TEMP 98.2; O2SAT 100
== END ==
LOC: ER 16:41
DX: S20.212A Contusion of left front wall of thorax, initial encounter (principal); W11.XXXA Fall on and from ladder, initial encounter; R50.9 Fever, unspecified; Z11.52 Encounter for screening for COVID-19; Z88.5 Allergy status to narcotic agent
CPT/HCPCS: 36415; 71250; 74176; 80053; 83690; 85025; 87804; 87811; 96374; 99285

== ENCOUNTER 2024-01-05 16:25 | Emergency (ER) | payer OTHER ==
--- OUTSIDE RECORDS SUMMARY | 2024-01-05 16:33 | XMS REPORT | Continuity of Care Document ---
Author Name Unknown Address [address] [place], [place] [address]ect Address [address] [place] [address] [address] [place] [address] Care Team Providers Care Ball Sorter Name Role Phone [email or web address] Attending Clinician Unavaila ble [email or web address] Admitting Clinician Unavaila ble Encounters Start Date/Time End Date/Time Encounter Type Admission Type Attending Clinicians Care Facility Care Department Encounter ID Source 2023-02-17 00:00:00 2023-02-17 00:00:00 Outpatient [email or web address] diyala_S PRIV PRIV [id number] [facility]
[2024-01-05] MEDS ORDERED: ONDANSETRON 4 MG/2 ML VIAL ONE (17:03)
[2024-01-05] MEDS ORDERED: MORPHINE 4 MG/ML SYR ONE (17:03)
[2024-01-05 17:19] LABS: Absolute Basophils 0.1 K/uL (0-0.5); Absolute Eosinophils 0.2 K/uL (0-0.5); Absolute Lymphocytes (CBC) 2.8 K/uL (0.7-4.9); Absolute Monocytes 0.8 K/uL (0.1-1.3); Absolute Neutrophil 5.8 K/uL (1.8-8.0); Basophils % 0.8 % (0-1.3); Eosinophils % 2.5 % (0-4.4); Hematocrit 40.5 % (36.0-45.0); Hemoglobin 13.8 g/dL (12.0-15.0); Lymphocytes % 28.5 % (15.3-44.8); MCH 30.9 pg (27.0-35.0); MCHC 34.1 g/dL (32.0-36.0); MCV 90.6 fL (80-100); MPV 8.7 fL (7.6-11.3); Monocytes % 8.4 % (3.3-12.3); Neutrophils % 59.8 % (41.7-73.7); Nucleated Red Blood Cells % 0.1 % (0-0); Platelets 279 thou/uL (152-406); RBC Red Blood Cell Count 4.47 M/uL (3.86-4.86); Red Cell Distribution Width 13.7 % (12.1-15.2); Specific Gravity > 1.030 (1.005-1.030); Sqamous Epithelial <5 /HPF (None Seen); Urine Bacteria None Seen /HPF (<20); Urine Bilirubin NEGATIVE (Negative); Urine Blood Negative (Negative); Urine Clarity Turbid (Clear); Urine Color Yellow (Yellow); Urine Culture Reflex Order NOT NEEDED; Urine Glucose NEGATIVE (Negative); Urine Ketones TRACE (Negative); Urine Microscopic Reflex YN ORDER UMIC; Urine Mucus 1+ /HPF (None Seen); Urine Nitrite NEGATIVE (Negative); Urine Protein 1+ (Negative); Urine RBC <5 /HPF (None Seen); Urine Urobilinogen Normal (Normal); Urine WBC <5 /HPF (<5); Urine pH 5.5 (5.0-7.0)
[2024-01-05 17:31] LABS: Albumin 3.3 g/dL (3.4-5.0); Albumin/Globulin Ratio 0.9 (1.1-1.8); Anion Gap 7.1 mEq/L (5.0-15.0); Bilirubin Total 0.4 mg/dL (0.2-1.0); Globulin 3.6 g/dL (2.3-3.5); Potassium 4.1 mEq/L (3.5-5.1); Protein, Total 6.9 g/dL (6.4-8.2)
--- NOTE | 2024-01-05 17:38 | RAD REPORT ---
EXAMINATION: CT ABDOMEN AND PELVIS WITHOUT CONTRAST CLINICAL INDICATION: Female, 53 years old. [facility] MAIN right flank pain, hx of stones Bed Name: 7 TECHNIQUE: CT abdomen and pelvis was performed, without IV contrast, as per department protocol. Axia l, sagittal and coronal reconstructions were obtained. One or more of the following dose reduction techniques were used: Automated exposure control, adjustment of the mA and/or kV according to the pat ient size, and/or iterative reconstruction. Unless otherwise specified, incidental findings do not require dedicated imaging follow-up. [id number]. IV CONTRAST: Not administered. COMPARISON: No prior exam. FINDINGS: The lack of intravenous contrast limits the sensitivity of this exam for evaluation of solid visceral organs, vascular structures, and retroperitoneum. LOWER CHEST: Small hiatal hernia. LIVER: Normal in size and contour. No focal lesion. GALLBLADDER/BILE DUCTS: Cholecystectomy.?Mild biliary ductal dilatation which is likely related to th e postcholecystectomy state. PANCREAS: No mass, ductal dilation, or rosario-pancreatic fluid. SPLEEN: Normal size. No focal lesion. ADRENALS: Normal; no mass. KIDNEYS AND URETERS: Normal size and contour. No hydronephrosis. URINARY BLADDER: Normal contour. GASTROINTESTINAL TRACT: Stomach is non-dilated. Small bowel has normal course and caliber. No colonic wall thickening or pericolonic inflammatory changes. PERITONEUM: No free fluid. ABDOMINAL AORTA AND OTHER VESSELS: Normal caliber aorta and IVC. REPRODUCTIVE ORGANS: No pathologic process. MUSCULOSKELETAL: No acute or suspicious osseous abnormality. ADDITIONAL FINDINGS: None. IMPRESSION: No acute or significant abnormalities in the abdomen or pelvis, with evaluation limited by lack of IV contrast. No urinary tract calculi.
[2024-01-05] MEDS ORDERED: KETOROLAC 30 MG/ML INJ ONE (18:13)
--- NOTE | 2024-01-05 18:13 | ER ---
Nurse's Notes [facility] Name: Emily Amaral Age: 53 yrs Sex: Female : 1970 Arrival Date: 01/05/2024 Time: 16:25 Bed 7 Private MD: Diagnosis: Abdominal pain, unspecified Presentation: 01/04 16:35 Onset of symptoms was December 2023. aa5 16:35 Chief complaint: Patient states: RLQ pain radiating around to right lower back. Reports aa5 nausea, denies vomiting, denies urinary symptoms. Coronavirus screen: nausea. Ebola Screen: Patient denies travel to an Ebola-affected area in the 21 days before illness onset. Initial Sepsis Screen: Does the patient meet any 2 criteria? No. Patient's initial sepsis screen is negative. Does the patient have a suspected source of infection? No. Patient's initial sepsis screen is negative. Risk Assessment: Do you want to hurt yourself or someone else? Patient reports no desire to harm self or others. 16:35 Acuity: PRIYA 3 aa5 16:35 Method Of Arrival: Ambulatory aa5 Historical: - Allergies: 16:35 Demerol (Anaphylaxis); aa5 - PMHx: 16:35 cervical cancer; Endometrosis; Pancreatitis; aa5 - PSHx: 16:35 Cholecystectomy; hysterectomy; oopherectomy; aa5 - Immunization history:: Adult Immunizations unknown. - Infectious Disease History:: Denies. - Family history:: not pertinent. - Hospitalizations: : No recent hospitalization is reported. - Social history:: Smoking status: Patient denies any tobacco usage or history of. Screenin:35 [facility] ED Fall Risk Assessment (Adult) History of falling in the last 3 months, aa5 including since admission No falls in past 3 months (0 pts) Confusion or Disorientation No (0 pts) Intoxicated or Sedated No (0 pts) Impaired Gait No (0 pts) Mobility Assist Device Used No (0 pt) Altered Elimination No (0 pt) Score/Fall Risk Level 0 - 2 = Low Risk Oriented to surroundings, Maintained a safe environment, Educated pt \T\ family on fall prevention, incl call for assistance when getting out of bed. Abuse screen: Denies threats or abuse. Nutritional screening: No deficits noted. Tuberculosis screening: No symptoms or risk factors identified. Assessment: 16:35 General: Appears uncomfortable, Behavior is calm, cooperative. Pain: Complains of pain aa5 in right lower quadrant Pain radiates to right low back Pain currently is 8 out of 10 on a pain scale. Quality of pain is described as sharp, Pain began 1 day ago. Is continuous. Neuro: Level of Consciousness is awake, alert, obeys commands, Oriented to person, place, time, situation. Cardiovascular: Patient's skin is warm and dry. Respiratory: Airway is patent Respiratory effort is even, unlabored, Respiratory pattern is regular, symmetrical. GI: Abdomen is round Bowel sounds present X 4 quads. Abd is soft X 4 quads Abdomen is tender to palpation in right lower quadrant Reports nausea, Patient currently denies vomiting. : Denies burning with urination, inability to void, urinary frequency, urgency. EENT: No signs and/or symptoms were reported regarding the EENT system. Derm: Skin is pink, warm \T\ dry. Musculoskeletal: Range of motion: intact in all extremities. 17:15 Reassessment: Pt to CT . aa5 17:33 Reassessment: Patient is alert, oriented x 3, equal unlabored respirations, skin aa5 warm/dry/pink. Patient states feeling better. Patient states symptoms have improved. 18:16 Reassessment: Patient is alert, oriented x 3, equal unlabored respirations, skin aa5 warm/dry/pink. 18:44 Reassessment: Patient is alert, oriented x 3, equal unlabored respirations, skin aa5 warm/dry/pink. Vital Signs: 16:35 BP 134 / 91; Pulse 64; Resp 18 S; Temp 97.6(TE); Pulse Ox 99% on R/A; Pain 8/10; aa5 17:30 BP 130 / 82; Pulse 62; Resp 18 S; Pulse Ox 99% on R/A; aa5 18:44 BP 109 / 77; Pulse 56; Resp 16 S; Pulse Ox 96% on R/A; aa5 16:35 Pain Scale: Adult aa5 ED Course: 16:28 Patient arrived in ED. im 16:29 Richmond Gray MD is Attending Physician. rn 16:35 Arm band placed on Patient placed in an exam room, on a stretcher. aa5 16:35 Patient has correct armband on for positive identification. Bed in low position. Call aa5 light in reach. Side rails up X 1. Pulse ox on. NIBP on. 16:53 Bethany Carey, RN is Primary Nurse. aa5 17:00 Urine collected: clean catch specimen, sent to lab. aa5 17:01 Initial lab(s) drawn, by la, sent to lab. Inserted saline lock: 20 gauge in left aa5 antecubital area, using aseptic technique. Blood collected. Flushed with 10 mL NS. 17:17 Triage completed. aa5 17:24 CT Stone Protocol In Process Unspecified. EDMS 18:44 No provider procedures requiring assistance completed. IV discontinued, intact, aa5 bleeding controlled, No redness/swelling at site. Pressure dressing applied. Administered Medications: 17:09 Drug: Ondansetron IVP 4 mg IVP once; over 2 minutes Route: IVP; Site: left antecubital; aa5 17:20 Follow up: Response: No adverse reaction aa5 17:09 Drug: morphine IVP or IV 4 mg IVP once over 4 mins Route: IVP; Infused Over: 4 mins; aa5 Site: left antecubital; 17:20 Follow up: Response: No adverse reaction aa5 18:16 Drug: Ketorolac IVP 30 mg IVP once Route: IVP; Site: left antecubital; aa5 18:18 Follow up: Response: No adverse reaction aa5 Medication: 17:31 VIS not applicable for this client. aa5 Outcome: 18:12 Discharge ordered by . rn 18:44 Discharged to home ambulatory, aa5 18:44 Condition: stable 18:44 Instructed on discharge instructions, follow up and referral plans. medication usage, Demonstrated understanding of instructions, follow-up care, medications, Prescriptions given X 1, 18:45 Patient left the ED. aa5 Signatures: Dispatcher [employer] EDCT Richmond Gray MD MD rn Calderon, Audri, RN RN aa5 Flora Rai Corrections: (The following items were deleted from the chart) 18:58 18:58 Patient left the ED. aa5 aa5
--- NOTE | 2024-01-05 18:13 | EDPHYS ---
Physician Documentation [facility] Name: Emily Amaral Age: 53 yrs Sex: Female : 1970 Arrival Date: 01/05/2024 Time: 16:25 Bed 7 Private MD: ED Physician Richmond Gray HPI: 01/04 17:18 This 53 yrs old Female presents to ER via Ambulatory with complaints of Abdominal Pain, rn Low Back Pain. 17:18 The patient presents with pain that is acute. The symptoms are located in the right mid rn back and right low back. 17:18 Modifying factors: The patient symptoms are alleviated by remaining still, the patient rn symptoms are aggravated by any movement. Severity of symptoms: At their worst the symptoms were moderate, in the emergency department the symptoms are unchanged. The patient has experienced similar episodes in the past. Patient reports right lower back pain and right lower quadrant abdominal pain that began in the last day or 2. No fever or chills. No vomiting or diarrhea. No urinary symptoms or hematuria. History of ovarian cyst but ovaries taken already. Patient states feels different from previous kidney stone. No trauma. Denies radiation down the leg. No bowel or bladder issues. No weakness of lower extremities.. Historical: - Allergies: 16:35 Demerol (Anaphylaxis); aa5 - PMHx: 16:35 cervical cancer; Endometrosis; Pancreatitis; aa5 - PSHx: 16:35 Cholecystectomy; hysterectomy; oopherectomy; aa5 - Immunization history:: Adult Immunizations unknown. - Infectious Disease History:: Denies. - Family history:: not pertinent. - Hospitalizations: : No recent hospitalization is reported. - Social history:: Smoking status: Patient denies any tobacco usage or history of. ROS: 17:18 Constitutional: Negative for fever, chills, and weight loss, Cardiovascular: Negative rn for chest pain, palpitations, and edema, Respiratory: Negative for shortness of breath, cough, wheezing, and pleuritic chest pain, Abdomen/GI: Positive for right lower quadrant abdominal pain Back: Positive for right lower back pain : Negative for injury, bleeding, discharge, and swelling, MS/Extremity: Negative for injury and deformity, Skin: Negative for injury, rash, and discoloration, Neuro: Negative for headache, weakness, numbness, tingling, and seizure, Exam: 17:18 Constitutional: This is a well developed, well nourished patient who is awake, 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 No pulse deficits. Abdomen/GI: Soft, mild right lower quadrant tenderness without guarding or masses. Back: No spinal tenderness. Skin: Warm, dry MS/ Extremity: Pulses equal, no cyanosis. Neurovascular intact. Full, normal range of motion. Equal circumference. Neuro: Awake and alert, GCS 15. Motor strength 5/5 in all extremities. Sensory grossly intact. Vital Signs: 16:35 BP 134 / 91; Pulse 64; Resp 18 S; Temp 97.6(TE); Pulse Ox 99% on R/A; Pain 8/10; aa5 17:30 BP 130 / 82; Pulse 62; Resp 18 S; Pulse Ox 99% on R/A; aa5 18:44 BP 109 / 77; Pulse 56; Resp 16 S; Pulse Ox 96% on R/A; aa5 16:35 Pain Scale: Adult aa5 MDM: 16:29 Patient medically screened. rn 18:10 Differential diagnosis: arthritis, strain, sciatica, Herniated disc UTI, Kidney stone, rn endometriosis. Data reviewed: vital signs, nurses notes, lab test result(s), radiologic studies, and as a result, I will discharge patient. Counseling: I had a detailed discussion with the patient and/or guardian regarding the historical points, exam findings, and any diagnostic results supporting the discharge/admit diagnosis, lab results, radiology results, the need for outpatient follow up, to return to the emergency department if symptoms worsen or persist or if there are any questions or concerns that arise at home. Response to treatment: the patient's symptoms have mildly improved after treatment, and as a result, I will discharge patient. Special discussion: Based on the patient's Hx, exam, and Dx evaluation, there is no indication for emergent surgery or inpatient Tx. It is understood by the patient/guardian that if the Sx's persist or worsen they need to return immediately for re-evaluation. I discussed with the patient/guardian in detail that at this point there is no indication for admission to the hospital. It is understood, however, that if the symptoms persist or worsen the patient needs to return immediately for re-evaluation. Based on the history and exam findings, there is no indication for further emergent testing or inpatient evaluation. I discussed with the patient/guardian the need to see the primary care provider for further evaluation of the symptoms. 01/04 16:46 Order name: CBC with Diff; Complete Time: 17:36 rn 01/04 16:46 Order name: CMP; Complete Time: 17:36 rn 01/04 16:46 Order name: Lipase; Complete Time: 17:36 rn 01/04 16:46 Order name: Urinalysis w/ reflexes; Complete Time: 17:36 rn 01/04 16:46 Order name: CT Stone Protocol; Complete Time: 17:41 rn 01/04 16:46 Order name: IV Saline Lock; Complete Time: 17:05 rn 01/04 16:46 Order name: Labs collected and sent; Complete Time: 17:05 rn Administered Medications: 17:09 Drug: Ondansetron IVP 4 mg IVP once; over 2 minutes Route: IVP; Site: left antecubital; aa5 17:20 Follow up: Response: No adverse reaction aa5 17:09 Drug: morphine IVP or IV 4 mg IVP once over 4 mins Route: IVP; Infused Over: 4 mins; aa5 Site: left antecubital; 17:20 Follow up: Response: No adverse reaction aa5 18:16 Drug: Ketorolac IVP 30 mg IVP once Route: IVP; Site: left antecubital; aa5 18:18 Follow up: Response: No adverse reaction aa5 Disposition Summary: 01/05/24 18:12 Discharge Ordered Notes: Location: Home rn Problem: new rn Symptoms: have improved rn Condition: Stable rn Diagnosis - Abdominal pain, unspecified rn Followup: rn - With: Private Physician - When: As needed - Reason: Recheck today's complaints, Re-evaluation by your physician Discharge Instructions: - Discharge Summary Sheet rn - Abdominal Pain, Adult rn - Flank Pain, Adult rn - Pain Without a Known Cause rn Forms: - Medication Reconciliation Form rn - 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 EDMS EDMS 16:46 16:46 COMPREHENSIVE METABOLIC PANEL+C.LAB.BRZ ordered. EDMS EDMS 16:46 16:46 LIPASE+C.LAB.BRZ ordered. EDMS EDMS 16:46 16:46 Urinalysis+U.LAB.BRZ ordered. EDMS EDMS 16:46 16:46 Stone Protocol+CT.RAD.BRZ ordered. EDMS EDMS
[2024-01-05 19:04] VITALS: BP 134/91; TEMP 97.6; O2SAT 99
== END 2024-01-05 18:58 | disposition home or self-care (01) ==
LOC: ER 16:25
DX: R10.31 Right lower quadrant pain (principal); M54.50 Low back pain, unspecified
CPT/HCPCS: 85025; 81001; 36415; 83690; 80053; 76377; 74176; 96375; 96374; 99284; J2405

== ENCOUNTER 2024-01-21 18:50 | Emergency (ER) | payer OTHER ==
[2024-01-21 21:00] LABS: Absolute Basophils 0.1 K/uL (0-0.5); Absolute Eosinophils 0.5 K/uL (0-0.5); Absolute Lymphocytes (CBC) 3.6 K/uL (0.7-4.9); Absolute Monocytes 0.5 K/uL (0.1-1.3); Absolute Neutrophil 5.8 K/uL (1.8-8.0); Basophils % 0.8 % (0-1.3); Eosinophils % 4.5 % (0-4.4); Hematocrit 42.3 % (36.0-45.0); Hemoglobin 14.2 g/dL (12.0-15.0); MCHC 33.5 g/dL (32.0-36.0); MCV 92.7 fL (80-100); MPV 8.3 fL (7.6-11.3); Monocytes % 4.9 % (3.3-12.3); Neutrophils % 55.8 % (41.7-73.7); Platelets 312 thou/uL (152-406); RBC Red Blood Cell Count 4.57 M/uL (3.86-4.86); Red Cell Distribution Width 13.5 % (12.1-15.2)
[2024-01-21 21:14] LABS: Anion Gap 8.6 mEq/L (5.0-15.0); Potassium 3.6 mEq/L (3.5-5.1)
[2024-01-21] MEDS ORDERED: NA CHLORIDE 0.9% 100 ML ONE (21:20)
[2024-01-21] MEDS ORDERED: AMPICILLIN/SULBACTAM 3GM/VIAL ONE (21:20)
--- NOTE | 2024-01-21 21:31 | ER ---
Nurse's Notes [facility] Name: Emily Amaral Age: 53 yrs Sex: Female : 1970 Arrival Date: 01/21/2024 Time: 18:50 Bed 10 Private MD: Diagnosis: Cellulitis, abscess skin Presentation: 01/20 19:21 Chief complaint: Patient states: on Saturday behind my right ear started to get red, tm6 swollen, and painful. Saturday I came here to the ER and they said I had cellulitis and gave antibiotics and pain medication. They said to come back if it got worse, and it has gotten worse. 19:23 Coronavirus screen: Client denies travel out of the [place] in the last 14 days. Ebola tm6 Screen: Patient negative for fever greater than or equal to 101.5 degrees Fahrenheit, and additional compatible Ebola Virus Disease symptoms Patient denies exposure to infectious person. Patient denies travel to an Ebola-affected area in the 21 days before illness onset. No symptoms or risks identified at this time. Initial Sepsis Screen: Does the patient meet any 2 criteria? No. Patient's initial sepsis screen is negative. Does the patient have a suspected source of infection? No. Patient's initial sepsis screen is negative. Risk Assessment: Do you want to hurt yourself or someone else? Patient reports no desire to harm self or others. Onset of symptoms was January 17, 2024. 19:23 Method Of Arrival: Ambulatory tm6 19:23 Acuity: PRIYA 3 tm6 Triage Assessment: 19:21 General: Appears in no apparent distress. Behavior is calm, cooperative. Pain: tm6 Complains of pain in right ear and right jaw Pain currently is 3 out of 10 on a pain scale. at worst was 10 out of 10 on a pain scale. Pain began Saturday. EENT: Reports pain in right ear and right jaw Pain is 3 out of 10 on a pain scale. Neuro: Level of Consciousness is awake, alert, obeys commands, Oriented to person, place, time, situation. Cardiovascular: Patient's skin is warm and dry. Respiratory: Airway is patent Respiratory effort is even, unlabored, Respiratory pattern is regular, symmetrical. GI: No signs and/or symptoms were reported involving the gastrointestinal system. Abdomen is flat, non-distended. : No signs and/or symptoms were reported regarding the genitourinary system. Derm: Wound noted right ear and right jaw Wound is red, swollen, raised, painful. Musculoskeletal: No signs and/or symptoms reported regarding the musculoskeletal system. 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 - Infectious Disease History:: Denies. - Social history:: Smoking status: Patient denies any tobacco usage or history of. Patient/guardian denies using alcohol. Screenin:53 [facility] ED Fall Risk Assessment (Adult) History of falling in the last 3 months, lg3 including since admission No falls in past 3 months (0 pts) Confusion or Disorientation No (0 pts) Intoxicated or Sedated No (0 pts) Impaired Gait No (0 pts) Mobility Assist Device Used No (0 pt) Altered Elimination No (0 pt) Score/Fall Risk Level 0 - 2 = Low Risk Oriented to surroundings, Maintained a safe environment, Educated pt \T\ family on fall prevention, incl call for assistance when getting out of bed, Assessed \T\ reinforced patient's understanding of fall precautions. Abuse screen: Denies threats or abuse. Denies injuries from another. Nutritional screening: No deficits noted. Tuberculosis screening: No symptoms or risk factors identified. Assessment: 21:53 General: Appears in no apparent distress. uncomfortable, Behavior is calm, cooperative. lg3 Pain: Complains of pain in right jaw and right ear Pain currently is 8 out of 10 on a pain scale. Neuro: No deficits noted. Brooks Agitation-Sedation Scale (RASS): 0 - Alert and Calm Level of Consciousness is awake, alert, obeys commands, Oriented to person, place, time, situation. Cardiovascular: No deficits noted. Denies chest pain, shortness of breath, Capillary refill < 3 seconds Clubbing of nail beds is absent JVD is absent Patient's skin is warm and dry. Respiratory: No deficits noted. Airway is patent Respiratory effort is even, unlabored, Respiratory pattern is regular, symmetrical. GI: No deficits noted. No signs and/or symptoms were reported involving the gastrointestinal system. : No deficits noted. No signs and/or symptoms were reported regarding the genitourinary system. EENT: No deficits noted. Derm: Skin is intact, is healthy with good turgor, Skin is dry, Skin is normal, Skin temperature is warm Abscess located on right ear Reports pain. Musculoskeletal: No deficits noted. No signs and/or symptoms reported regarding the musculoskeletal system. Circulation, motion, and sensation intact. Range of motion: intact in all extremities. Vital Signs: 19:23 BP 144 / 94; Pulse 63; Resp 18; Temp 98.6(O); Pulse Ox 99% on R/A; MAP 106 mmHg; Weight tm6 90.72 kg; Height 5 ft. 5 in. ; Pain 3/10; 21:53 BP 136 / 91; Pulse 67; Resp 17 S; Temp 98.3(O); Pulse Ox 99% on R/A; lg3 19:23 Body Mass Index 33.28 (90.72 kg, 165.1 cm) tm6 19:23 Pain Scale: Adult tm6 ED Course: 18:52 Patient arrived in ED. mg5 19:21 Arm band placed on left wrist. tm6 19:24 Triage completed. tm6 20:20 Bharathi Giles MD is Attending Physician. sp3 20:45 First set of blood cultures drawn by me. oe 20:53 Inserted saline lock: 22 gauge in left antecubital area, using aseptic technique. Blood oe collected. Flushed with 10 mL NS. 20:54 CBC with Diff Sent. oe 20:54 BMP Sent. oe 21:06 Second set of blood cultures drawn by me. oe 21:53 Rachel Shields, ANNY is Primary Nurse. lg3 21:53 Patient has correct armband on for positive identification. Bed in low position. Call lg3 light in reach. Side rails up X 1. Client placed on continuous cardiac and pulse oximetry monitoring. NIBP monitoring applied. Door closed. Noise minimized. Warm blanket given. Pillow given. Family accompanied patient. 21:53 No provider procedures requiring assistance completed. IV discontinued, intact, lg3 bleeding controlled, No redness/swelling at site. Pressure dressing applied. Administered Medications: 21:24 Drug: Ampicillin-Sulbactam Sodium IVPB 3 grams IVPB once over 30 mins; (mix in 100 mL lg3 NS) Route: IVPB; Infused Over: 30 mins; Site: left antecubital; :56 Follow up: Response: No adverse reaction; IV Status: Completed infusion; IV Intake: [id number] Medication: 21:53 VIS not applicable for this client. lg3 Intake: :56 IV: 50ml; Total: 50ml. lg3 Outcome: :30 Discharge ordered by . sp3 :53 Discharged to home ambulatory, lg3 : Condition: stable :53 Discharge instructions given to patient, Instructed on discharge instructions, follow up and referral plans. medication usage, Demonstrated understanding of instructions, follow-up care, medications, Prescriptions given X 2, :56 Patient left the ED. lg3 Signatures: Jimbo Bahena Lacie, RN RN lg3 Bharathi Giles MD MD sp3 Joan Mueller mg5 Yesenia Resendez RN RN tm6
--- NOTE | 2024-01-21 21:31 | EDPHYS ---
Physician Documentation [facility] Name: Emily Amaral Age: 53 yrs Sex: Female : 1970 Arrival Date: 01/21/2024 Time: 18:50 Bed 10 Private MD: ED Physician Bharathi Giles HPI: 01/20 21:04 This 53 yrs old Female presents to ER via Ambulatory with complaints of right neck sp3 cellulitis/infection. 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 Patient had CBC and chemistries ordered and had a leukocytosis of 12,000. CT scan of the neck demonstrated no mastoiditis or other concerning findings. Patient was discharged home on cephalexin p.o. and told to return if symptoms worsen. She now states that the redness has slightly increased and the swelling has increased as well. She denies fever, airway compromise, airway swelling, lymphadenopathy or pain or swelling anywhere else. Remainder of review of systems are negative.. 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 - Infectious Disease History:: Denies. - Social history:: Smoking status: Patient denies any tobacco usage or history of. Patient/guardian denies using alcohol. ROS: 21:06 Constitutional: Negative for fever, chills, and weight loss, Eyes: Negative for injury, sp3 pain, redness, and discharge, Cardiovascular: Negative for chest pain, palpitations, and edema, Respiratory: Negative for shortness of breath, cough, wheezing, and pleuritic chest pain, Abdomen/GI: Negative for abdominal pain, nausea, vomiting, diarrhea, and constipation, Back: Negative for injury and pain, MS/Extremity: Negative for injury and deformity, Neuro: Negative for headache, weakness, numbness, tingling, and seizure, Psych: Negative for depression, anxiety, suicide ideation, homicidal ideation, and hallucinations, Allergy/Immunology: Negative for hives, rash, and allergies, Endocrine: Negative for neck swelling, polydipsia, polyuria, polyphagia, and marked weight changes, Hematologic/Lymphatic: Negative for swollen nodes, abnormal bleeding, and unusual bruising, 21:06 All other systems are negative, Exam: 21:06 Constitutional: This is a well developed, well nourished patient who is awake, alert, sp3 and in no acute distress. Head/Face: Normocephalic, atraumatic. Eyes: Pupils equal round and reactive to light, extra-ocular motions intact. Lids and lashes normal. Conjunctiva and sclera are non-icteric and not injected. Cornea within normal limits. Periorbital areas with no swelling, redness, or edema. ENT: Nares patent. No nasal discharge, no septal abnormalities noted. External auditory canals are clear. Oropharynx with no redness, swelling, or masses, exudates, or evidence of obstruction, uvula midline. Mucous membranes moist. Chest/axilla: Normal chest wall appearance and motion. Nontender with no deformity. No lesions are appreciated. Cardiovascular: Regular rate and rhythm with a normal S1 and S2. No gallops, murmurs, or rubs. Normal PMI, no JVD. No pulse deficits. Respiratory: Lungs have equal breath sounds bilaterally, clear to auscultation and percussion. No rales, rhonchi or wheezes noted. No increased work of breathing, no retractions or nasal flaring. Abdomen/GI: Soft, non-tender, with normal bowel sounds. No distension or tympany. No guarding or rebound. No evidence of tenderness throughout. Back: No spinal tenderness. No costovertebral tenderness. Full range of motion. 21:06 Neck: Right preauricular neck area demonstrates 1 cm x 2 similar area of very mild fluctuance but still hard area consistent with probable cellulitis over early abscess. , Vital Signs: 19:23 BP 144 / 94; Pulse 63; Resp 18; Temp 98.6(O); Pulse Ox 99% on R/A; MAP 106 mmHg; Weight tm6 90.72 kg; Height 5 ft. 5 in. ; Pain 3/10; 21:53 BP 136 / 91; Pulse 67; Resp 17 S; Temp 98.3(O); Pulse Ox 99% on R/A; lg3 19:23 Body Mass Index 33.28 (90.72 kg, 165.1 cm) tm6 19:23 Pain Scale: Adult tm6 MDM: 20:20 Patient medically screened. sp3 21:07 Data reviewed: vital signs, nurses notes, old medical records, lab test result(s). ED sp3 course: Given CT findings I am not concerned about any deeper infection. Will obtain repeat blood work to trend CBC and I will administer Unasyn 3 g IV with subsequent discharge on p.o. antibiotic double coverage and follow-up with PCP. Possible I\T\D of abscess in 3 to 4 days depending on progress. I have stressed importance of warm compresses to which patient is acknowledged.. 21:30 ED course: WBC count of 10 trending down. Will discharge on clindamycin and Bactrim sp3 with ceasing of the cephalexin.. 01/20 20:40 Order name: CBC with Diff; Complete Time: 21:29 sp3 01/20 20:40 Order name: BMP; Complete Time: 21:29 sp3 01/20 20:40 Order name: Blood Culture Adult (2) sp3 01/20 20:40 Order name: IV Saline Lock; Complete Time: 20:54 sp3 01/20 20:40 Order name: Labs collected and sent; Complete Time: 20:54 sp3 Administered Medications: 21:24 Drug: Ampicillin-Sulbactam Sodium IVPB 3 grams IVPB once over 30 mins; (mix in 100 mL lg3 NS) Route: IVPB; Infused Over: 30 mins; Site: left antecubital; 21:56 Follow up: Response: No adverse reaction; IV Status: Completed infusion; IV Intake: [id number] Disposition Summary: 01/21/24 21:30 Discharge Ordered Notes: Location: Home sp3 Condition: Stable sp3 Diagnosis - Cellulitis, abscess skin sp3 Followup: sp3 - With: Private Physician - When: Upon discharge from the Emergency Department - Reason: Continuance of care Discharge Instructions: - Discharge Summary Sheet sp3 - Skin Abscess sp3 - Cellulitis, Adult sp3 Forms: - Medication Reconciliation Form sp3 - Antibiotic Education sp3 - Prescription Opioid Use sp3 - Patient Portal Instructions sp3 - Leadership Thank You Letter sp3 Prescriptions: - Clindamycin HCl 300 mg Oral Capsule - take 1 capsule ORAL route every 6 hours for 10 days; 40 capsule; Refills: 0, sp3 Product Selection Permitted - Bactrim DS 800-160 mg Oral Tablet - take 1 tablet ORAL route every 12 hours for 7 days; 14 tablet; Refills: 0, sp3 Product Selection Permitted Signatures: Dispatcher [employer] Rachel Kline RN RN lg3 Bharathi Giles MD MD sp3 Yesenia Resendez RN RN tm6
[2024-01-22 05:52] VITALS: O2SAT 99
[2024-01-22 05:54] VITALS: BP 136/91; TEMP 98.3
== END 2024-01-21 21:56 | disposition home or self-care (01) ==
LOC: ER 18:50
DX: L03.221 Cellulitis of neck (principal); L02.11 Cutaneous abscess of neck
CPT/HCPCS: 96365; 87040 ×2; 85025; 80048; 36415; 99284; J0295